=== PATIENT | male | born 1955 | race Caucasian/White ===

== ENCOUNTER 2021-09-22 22:21 | Inpatient (IN) | payer MEDICARE, SELFPAY ==
--- NOTE | ~2021-09-22 | XR_ITS ---
EXAMINATION: XR chest 1V portable EXAM DATE: 10/06/2021 10:39 INDICATION: Respiratory failure. COVID pneumonia. TECHNIQUE: Portable AP frontal chest x-ray was obtained. Comparison is made to prior examination from 10/05/2021. FINDINGS: Endotracheal tube, nasogastric tube and right IJ venous line are in position. Diffuse COVID pneumonia unchanged. There are no sizable pleural effusions. There is no pneumothora x suspected. Cardiomediastinal silhouette is normal. Mild thoracic spondylosis. There is aortic ar teriosclerosis. There is no significant interval change compared to prior exam. IMPRESSION: 1. Line and tube(s) in position. 2. Stable diffuse COVID pneumonia. Reviewed, dictated and finalized at location A. UIT BREAKER ASSEMBLER
--- NOTE | ~2021-09-22 | XR_ITS ---
EXAMINATION: XR chest 1V portable DATE: 10/04/2021 07:56 INDICATION: Respiratory failure. COVID-19 pneumonia. TECHNIQUE: A single frontal view of the chest was obtained. COMPARISON: Chest single view 10/03/2021 FINDINGS: The patient is rotated to his left. There are airspace opacities and interstitial opacities in all lung zones bilaterally. No pleural effusion or pneumothorax. The heart size is normal. The en dotracheal tube tip is 5.7 cm above the viola. The nasogastric tube tip is beyond the inferior sophie n of the radiograph, but at least to the stomach. A right internal jugular central venous catheter is seen with tip at the superior cavoatrial junction. IMPRESSION: 1. Stable diffuse lung disease, consistent with COVID-19 pneumonia versus acute respiratory distress syndrome (ARDS). Reviewed, dictated and finalized at location A. CE DEPARTMENT SECRETARY
--- NOTE | ~2021-09-22 | XR_ITS ---
EXAMINATION: XR chest 1V portable DATE: 09/26/2021 05:28 INDICATION: Acute respiratory failure. COVID-19 pneumonia. TECHNIQUE: A single frontal view of the chest was obtained. COMPARISON: Chest single view 09/25/2021, chest CT 09/22/2021 FINDINGS: There are airspace opacities in all lung zones bilaterally, worst in the mid and lower lung zones. No pleural effusion or pneumothorax. The heart size is normal. The endotracheal tube tip is 4 .6 cm above the viola. The nasogastric tube tip is in the stomach. A right internal jugular central venous catheter is seen with tip at the superior cavoatrial junction. IMPRESSION: 1. Diffuse lung disease with improvement in right upper lobe and worsening at left lung base, consist ent with COVID-19 pneumonia. Reviewed, dictated and finalized at location A. L SERVICES MANAGER IMPRESSION: 1. Diffuse lung disease with improvement in right upper lobe and worsening at l eft lung base, consistent with COVID-19 pneumonia.
--- NOTE | ~2021-09-22 | XR_ITS ---
EXAMINATION: XR chest 1V portable DATE: 09/22/2021 22:46 INDICATION: COVID-19 pneumonia. Shortness of breath and cough. TECHNIQUE: A single frontal view of the chest was obtained. COMPARISON: Chest CT 09/22/2021 FINDINGS: There are hazy airspace opacities in all lung zones bilaterally with a basilar predominance . No pleural effusion or pneumothorax. The heart size is normal. IMPRESSION: 1. Diffuse lung disease, consistent with COVID-19 pneumonia. Reviewed, dictated and finalized at location A. CING MANAGER
--- NOTE | ~2021-09-22 | XR_ITS ---
EXAMINATION: XR chest 1V portable DATE: 10/07/2021 13:45 INDICATION: Oxygen desaturation. Decompensation. TECHNIQUE: A single frontal view of the chest was obtained. COMPARISON: Chest single view 10/07/2021 FINDINGS: There are airspace and interstitial opacities of the lungs bilaterally. No pleural effusion or pneumothorax. The heart size is normal. The endotracheal tube tip is 5.1 cm above the viola. The nasogastric tube tip is beyond the inferior margin of the radiograph, but at least to the stomach. A right internal jugular central venous catheter is seen with tip at the superior cavoatrial junction. IMPRESSION: 1. Diffuse lung disease with worsening on the right, consistent with COVID-19 pneumonia versus acute respiratory distress syndrome (ARDS). Reviewed, dictated and finalized at location A. RVISOR TRAVEL TRAILER IMPRESSION: 1. Diffuse lung disease with worsening on the right, consistent with COVID-19 p neumonia versus acute respiratory distress syndrome (ARDS).
--- NOTE | ~2021-09-22 | XR_ITS ---
XR chest ET placement 09/25/2021 14:22 Indication: Check endotracheal tube placement Procedure: AP portable chest Comparison: Comparison to multiple prior studies sequentially, with oldest reviewed study dated 09/04. Findings: Endotracheal tube tip 5.8 cm above the viola. NG tube in the stomach. Right IJ central alli e tip in the caudal aspect of the SVC. There is bilateral airspace disease which has progressed sligh tly. No significant effusion or pneumothorax. Heart size normal. Impression: 1: Interval progression of bilateral airspace disease which may represent pneumonia or edema. Reviewed, dictated and finalized at location A. GER SPA Impression: 1: Interval progression of bilateral airspace disease which may represent pneum onia or edema.
--- NOTE | ~2021-09-22 | XR_ITS ---
XR chest 1V portable DATE: 09/27/2021 06:33 INDICATION: Covid pneumonia. Intubation. TECHNIQUE: Portable AP chest on 09/27/2021 at 0519 hours COMPARISON: 09/26/2021 portable AP chest FINDINGS: There are patchy bilateral infiltrates involving primarily the mid and lower lung zones, gr eater on the left, particularly the the left lower lobe, with left lower lobe air bronchograms. Right internal jugular central venous catheter tip overlies the superior cavoatrial junction. ET tube 5.2 cm above viola. NG tube tip overlies distal stomach. Heart size appears within normal limits considering magnification associated with AP projection. Aort ic arch calcification. Minimal if any pleural effusion. IMPRESSION: Persistent bilateral pulmonary infiltrates, left greater than right, especially left lowe r lobe Reviewed, dictated and finalized at location A. MACHINE TENDER STARCH SPRAYING IMPRESSION: Persistent bilateral pulmonary infiltrates, left greater than right , especially left lower lobe
--- NOTE | ~2021-09-22 | XR_ITS ---
XR chest 1V portable DATE: 10/07/2021 06:21 INDICATION: History of failure. Covid pneumonia. TECHNIQUE: Portable upright AP chest on 10/24/2021 at 0459 hours COMPARISON: 10/06/2021 portable AP chest at 1025 hours FINDINGS: ET tube tip is approximately 5.2 cm above viola in satisfactory position. NG tube in stoma ch. Right internal jugular central venous catheter tip is situated in the lower aspect of the inferio r vena cava. Extensive diffuse patchy bilateral pulmonary infiltrates essentially unchanged since 10/06/2021, with m ost prominent involvement in the left lower lobe where there is opacification due to atelectasis and/ or consolidation. IMPRESSION: Persistent extensive patchy bilateral pulmonary infiltrates, relatively unchanged since Reviewed, dictated and finalized at location A. ERY KILN BUILDER IMPRESSION: Persistent extensive patchy bilateral pulmonary infiltrates, relati vely unchanged since 10/06/2021
--- NOTE | ~2021-09-22 | XR_ITS ---
EXAMINATION: XR chest 1V portable DATE: 10/05/2021 07:52 INDICATION: Respiratory failure. COVID-19 pneumonia. TECHNIQUE: A single frontal view of the chest was obtained on 2 radiographs. COMPARISON: Chest single view 10/04/2021 FINDINGS: The patient is rotated to his left. There are airspace and interstitial opacities in all james ng zones bilaterally with relative sparing of left lung apex. No pleural effusion or pneumothorax. Th e heart size is normal. The endotracheal tube tip is 5.3 cm above the viola. The nasogastric tube ti p is in the stomach. A right internal jugular central venous catheter is seen with tip at the superio r cavoatrial junction. IMPRESSION: 1. Worsened diffuse lung disease, consistent with COVID-19 pneumonia versus acute respiratory distres s syndrome (ARDS). Reviewed, dictated and finalized at location A. L SPRAYING MACHINE OPERATOR IMPRESSION: 1. Worsened diffuse lung disease, consistent with COVID-19 pneumonia versus acu te respiratory distress syndrome (ARDS).
--- NOTE | ~2021-09-22 | XR_ITS ---
EXAMINATION: XR chest 1V portable DATE: 09/30/2021 09:00 INDICATION: Acute respiratory failure. COVID pneumonia. TECHNIQUE: frontal view of the chest was obtained. COMPARISON: Chest radiograph dated 09/29/[address] studies dated 09/22/2021 and 09/29/2021. FINDINGS: Endotracheal tube tip 5.5 cm above the viola. Nasogastric tube extends below the left hemidiaphragm with distal tip collimated off the study. Right internal jugular central venous catheter with distal tip near the superior cavoatrial junction. Airspace opacities throughout the left lung relatively sparing the apex and to a lesser degree along the medial aspect of the right mid to lower lung zones. There is been some interval improvement parti cularly in the right lung as well as in the previously consolidated retrocardiac left lower lobe. No pleural effusion or pneumothorax. The cardiomediastinal silhouette is normal. IMPRESSION: 1. Bilateral lung disease with interval improvement particularly in the right lung likely due to infe ction. The appearance and pattern with progression of the lung disease on earlier CT studies suggests possibility of combined COVID and superimposed bacterial pneumonia. Reviewed, dictated and finalized at location . REVIEW SPECIALIST IMPRESSION: 1. Bilateral lung disease with interval improvement particularly in the right l little likely due to infection. The appearance and pattern with progression of the lung disease on earlier CT studies suggests possibility of combined COVID and superimposed bacterial pneumonia.
--- NOTE | ~2021-09-22 | CT_ITS ---
EXAMINATION: CT chest abdomen pelvis wo con DATE: 10/04/2021 11:15 INDICATION: Respiratory failure. TECHNIQUE: Computed tomography (CT) of the chest, abdomen, and pelvis was performed without intraveno us contrast. Automated exposure control and iterative reconstruction technique were employed. The dos e-length product was 1207.04 mGy-cm. COMPARISON: Chest CT 09/29/2021 FINDINGS: CHEST CT: There are extensive airspace opacities with air bronchograms in all lobes in the dependent portions o f the lungs. There are areas of new cavitation in these areas in the lower lobes and right upper lobe . There are groundglass opacities and crazy paving in the less dependent portions of the lungs. No pl eural effusion. The heart size is normal. There are coronary artery calcifications. No pericardial ef fusion. The nasogastric tube tip is in the distal stomach. A right internal jugular central venous ca theter is seen with tip at the superior cavoatrial junction. The endotracheal tube tip is in expected position above the viola. There is mild thoracic spondylosis. ABDOMEN/PELVIS CT: The liver and spleen are normal. The gallbladder is normal in size and contains contrast. The adrenal glands are normal. There are 3 stones in right kidney measuring up to 4 mm. There are greater than 1 0 stones in left kidney measuring up to 4 mm. No hydronephrosis. There is a Feldman catheter in the richard dder. The prostate is mildly enlarged. There is diverticulosis of the colon without evidence of diver ticulitis. There are no dilated loops of bowel. The appendix is not visualized. There are no patholog ically enlarged lymph nodes. There is trace pelvic ascites. There is mild lumbar spondylosis. IMPRESSION: 1. Worsened diffuse lung disease including areas of new cavitation in the lower lobes and right upper lobe, likely a combination of necrotizing bacterial pneumonia and COVID-19 pneumonia. Reviewed, dictated and finalized at location A. ER SPRAYER IMPRESSION: 1. Worsened diffuse lung disease including areas of new cavitation in the lower lobes and right upper lobe, likely a combination of necrotizing bacterial pneu monia and COVID-19 pneumonia.
--- NOTE | ~2021-09-22 | XR_ITS ---
EXAMINATION: XR chest 1V portable EXAM DATE: 10/02/2021 08:40 INDICATION: resp failure, covid pna TECHNIQUE: Portable AP frontal chest x-ray was obtained. Comparison is made to prior examination from 10/01/2021. FINDINGS: Endotracheal tube tip is 5 centimeters above the viola. There is a nasogastric tube seen with tip collimated off the study, but below the left hemidiaphragm. There is right IJ venous line. Diffuse airspace disease consistent with COVID pneumonia. There are no sizable pleural effusions. There is no pneumothorax suspected. Cardiomediastinal silhouette is normal. The bones and soft tis sues are unremarkable. There is no significant interval change compared to prior exam. IMPRESSION: 1. Line and tube(s) in position. 2. Diffuse COVID pneumonia. TAL PRE PRESS OPERATOR Reviewed, dictated and finalized at location A.
--- NOTE | ~2021-09-22 | XR_ITS ---
XR chest 1V portable 09/24/2021 12:55 Indication: Covid pneumonia Procedure: AP portable chest Comparison: 09/22/2021 Findings: There is patchy bilateral airspace opacities without significant change allowing for differ ences of technique. No pleural effusion or pneumothorax. No acute osseous abnormality. Impression: 1: Patchy bilateral airspace disease, compatible with pneumonia. Reviewed, dictated and finalized at location A. IL ANALYST Impression: 1: Patchy bilateral airspace disease, compatible with pneumonia.
--- NOTE | ~2021-09-22 | XR_ITS ---
XR abdomen NG/feed tube insert INDICATION: Evaluate NG tube position. TECHNIQUE: Limited KUB perform for evaluating NG tube . COMPARISON: No prior studies for comparison. FINDINGS: NG tube tip in the stomach at the level of the gastric antrum/pylorus. Visualized bowel ga s pattern is unremarkable.Bilateral airspace disease, consistent with pneumonia. IMPRESSION: 1: NG tube tip in the stomach. Reviewed, dictated and finalized at location A. STIGATOR VICE
--- NOTE | ~2021-09-22 | XR_ITS ---
EXAMINATION: XR chest 1V portable EXAM DATE: 10/01/2021 08:50 INDICATION: COVID pneumonia. Respiratory failure. TECHNIQUE: Portable AP frontal chest x-ray was obtained. Comparison is made to prior examination from 09/30/2021. FINDINGS: Endotracheal tube tip is 5 centimeters above the viola. There is a nasogastric tube seen with tip collimated off the study, but below the left hemidiaphragm. There is right IJ venous line. Again there is extensive left-sided, moderate amount of right basilar acute airspace disease consiste nt with COVID pneumonia. There are no sizable pleural effusions. There is no pneumothorax suspecte d. Cardiomediastinal silhouette is normal. The bones and soft tissues are unremarkable. There is no significant interval change compared to prior exam. IMPRESSION: 1. Line and tube(s) in position. 2. Stable airspace disease and other findings as above. Reviewed, dictated and finalized at location A. LOGY RESEARCH RN
--- NOTE | ~2021-09-22 | XR_ITS ---
EXAMINATION: XR chest ET placement DATE: 09/25/2021 06:32 INDICATION: Intubation. TECHNIQUE: A single frontal view of the chest was obtained. COMPARISON: Chest single view 09/24/2021, chest CT 09/22/2021 FINDINGS: There are airspace opacities in all lung zones bilaterally with a perihilar and lower lung predominance. No pleural effusion or pneumothorax. The heart size is normal. The endotracheal tube ti p is 5.9 cm above the viola. IMPRESSION: 1. Stable diffuse lung disease, consistent with COVID-19 pneumonia. Reviewed, dictated and finalized at location A. H MECHANIC
--- NOTE | ~2021-09-22 | XR_ITS ---
EXAMINATION: XR abdomen obstructive series EXAM DATE: 10/06/2021 11:40 INDICATION: Rule out ileus, small-bowel obstruction. TECHNIQUE: Frontal upright projection of the upper abdomen, frontal projection of the lower abdomen f or interpretation. Comparison is made to prior examination from 09/25/2021. FINDINGS: Feeding tube is in position. There is moderate amount of colonic stool and gas. No small bowel dilation, nonobstructive bowel gas pattern. There are no suspicious calcifications identifie d. There is no organomegaly suspected. The bones are unremarkable. Bibasilar airspace disease. IMPRESSION: 1. Moderate colonic stool and gas. 2. Bibasilar airspace disease. Reviewed, dictated and finalized at location A. UNTS PAYABLE ASSOCIATE
--- NOTE | ~2021-09-22 | XR_ITS ---
EXAMINATION: XR chest port-a-cath/central DATE: 09/25/2021 12:01 INDICATION: Central line placement. TECHNIQUE: A single frontal view of the chest was obtained. COMPARISON: Chest single view at 5:31 AM FINDINGS: There are airspace opacities in all lung zones bilaterally with a perihilar and lower lung predominance. No pleural effusion or pneumothorax. The heart size is normal. The endotracheal tube ti p is 6.1 cm above the viola. The nasogastric tube tip is in the distal stomach. A right internal jug ular central venous catheter is seen with tip at the superior cavoatrial junction. IMPRESSION: 1. Central line tip at superior cavoatrial junction. 2. Stable diffuse lung disease, consistent with COVID-19 pneumonia. Reviewed, dictated and finalized at location A. ESCENT PSYCHIATRIST
--- NOTE | ~2021-09-22 | XR_ITS ---
EXAMINATION: XR chest 1V portable EXAM DATE: 10/07/2021 23:13 INDICATION: covid sats 84 on peep 14 fio2 100%. TECHNIQUE: Portable AP frontal chest x-ray was obtained. Comparison is made to prior examination from 10/07, 10/06. FINDINGS: Endotracheal tube, nasogastric tube are in position. There is a right IJ venous line in po sition. Extensive bilateral acute pneumonia or edema, with continued interval progression. Small pleural effu sions not excludable. There is no pneumothorax suspected. Cardiac silhouette obscured by adjacent confluent consolidation. The bones and soft tissues are unremarkable. IMPRESSION: 1. Line and tube(s) in position. 2. Extensive bilateral airspace disease with continued interval progression. Reviewed, dictated and finalized at location A. FLIPPER
--- NOTE | ~2021-09-22 | XR_ITS ---
XR chest 1V portable DATE: 09/29/2021 06:24 INDICATION: Acute respiratory failure. Covid pneumonia. TECHNIQUE: Portable AP chest on 09/29/2021 0506 hours COMPARISON: 09/23/2021 portable AP chest at 0519 hours FINDINGS: ET tube in satisfactory position 4 cm above viola. NG tube in stomach. Right internal jugu lar central venous catheter tip overlies the right atrium. There are increased bilateral infiltrates involving particularly the mid and lower lung zones since 1 11/24/2020, with air bronchograms in the left lower lobe. Aortic calcification. IMPRESSION: Increased bilateral pulmonary infiltrates since 09/23/2020 Reviewed, dictated and finalized at location A. OR OYSTER FARMWORKER
--- NOTE | ~2021-09-22 | CT_ITS ---
EXAMINATION: CTA chest PE protocol DATE: 09/29/2021 10:34 INDICATION: Acute respiratory failure. Covid pneumonia. Possible pulmonary embolism. TECHNIQUE: Computed tomography angiography (CTA) of the chest was performed with 100 mL Omnipaque-350 intravenous contrast timed to evaluate the pulmonary arteries. Coronal maximum intensity projection 3D-reconstructions were created by the technologist. Automated exposure control and iterative reconst ruction technique were employed. Exam dose: 745.42 mGy-cm total exam DLP. COMPARISON: 09/23/2021 portable AP chest FINDINGS: There is diagnostic contrast enhancement of the pulmonary arteries and no evidence of pulmo nary embolism. No thoracic aortic aneurysm or dissection. Normal heart size. Coronary artery calcification. No hilar or mediastinal mass lesion or lymphadenopathy. There is very prominent bilateral lower lobe patchy consolidation with air bronchograms. There are groundglass patchy infiltrates of the upper lobes and middle lobe and patchy consolidation in the posterior segment left upper lobe and lingula. Endotracheal tube is present. NG tube in stomach. Right internal jugular central venous catheter. Prominent degenerative disc disease in lower cervical spine. Diffuse idiopathic skeletal hyperostosis of the thoracic spine. No suspicious osteolytic or osteoblastic lesions. IMPRESSION: No evidence of pulmonary embolism Extensive patchy consolidation of the lower lobes and posterior left upper lobe and lingula; patchy g roundglass infiltrates of the upper lobes and middle lobe Reviewed, dictated and finalized at Location A. Reviewed, dictated and finalized at location A. CAL CODING SPECIALIST IMPRESSION: No evidence of pulmonary embolism Extensive patchy consolidation of the lower lobes and posterior left upper lobe and lingula; patchy groundglass infiltrates of the upper lobes and middle lobe
--- NOTE | ~2021-09-22 | XR_ITS ---
EXAMINATION: XR chest 1V portable DATE: 10/08/2021 02:38 INDICATION: COVID-19 pneumonia. TECHNIQUE: A single frontal view of the chest was obtained. COMPARISON: Chest single view 10/07/2021, chest CT 10/04/2021 FINDINGS: There are airspace and interstitial opacities throughout the lungs bilaterally. No pleural effusion or pneumothorax. The heart size is normal. The endotracheal tube tip is 6.5 cm above the car porfirio. A right internal jugular central venous catheter is seen with tip at the superior cavoatrial soledad ction. The nasogastric tube tip is in the distal stomach. IMPRESSION: 1. Diffuse lung disease with worsening on the right, consistent with pneumonia. Reviewed, dictated and finalized at location A. EN CONSULTANT
--- NOTE | ~2021-09-22 | XR_ITS ---
XR chest 1V portable DATE: 09/29/2021 10:34 INDICATION: Acute respiratory failure. Covid pneumonia. TECHNIQUE: Portable AP chest on 09/23/2021 at 0933 hours COMPARISON: 09/29/2021 portable AP chest at 0506 hours FINDINGS: There are prominent bilateral central and lower lung zone infiltrates left lower lobe air b ronchograms. Differential diagnosis includes pulmonary edema and/or pneumonia. Heart size appears within normal range. There is aortic arch calcification. ET tube is approximately 5.3 cm above viola. NG tube in stomach. Right internal jugular central veno us catheter tip overlies superior cavoatrial junction. IMPRESSION: Persistent prominent bilateral pulmonary infiltrates; pulmonary edema and/or pneumonia Reviewed, dictated and finalized at location A. HT KITCHEN MANAGER IMPRESSION: Persistent prominent bilateral pulmonary infiltrates; pulmonary facundo ma and/or pneumonia
--- NOTE | ~2021-09-22 | XR_ITS ---
EXAMINATION: XR chest 1V portable EXAM DATE: 10/03/2021 07:59 INDICATION: Respiratory failure. COVID pneumonia. TECHNIQUE: Portable AP frontal chest x-ray was obtained. Comparison is made to prior examination from 10/02/2021. FINDINGS: Endotracheal tube tip is 5 centimeters above the viola. There is a nasogastric tube seen with tip collimated off the study, but below the left hemidiaphragm. There is right IJ venous line. Diffuse airspace disease consistent with COVID pneumonia. There are no sizable pleural effusions. There is no pneumothorax suspected. Cardiomediastinal silhouette is normal. The bones and soft tis sues are unremarkable. There is no significant interval change compared to prior exam. IMPRESSION: 1. Line and tube(s) in position. Diffuse COVID pneumonia. Reviewed, dictated and finalized at location A. D PRINTER
--- NOTE | ~2021-09-22 | CT_ITS ---
EXAMINATION: CTA chest PE protocol DATE: 09/22/2021 23:47 INDICATION: Shortness of breath. COVID-19 pneumonia. TECHNIQUE: Computed tomography angiography (CTA) of the chest was performed with 100 mL Omnipaque-350 intravenous contrast timed to evaluate the pulmonary arteries. Coronal maximum intensity projection 3D-reconstructions were created by the technologist. Automated exposure control and iterative reconst ruction technique were employed. The dose-length product was 279.33 mGy-cm. COMPARISON: None. FINDINGS: There are scattered groundglass opacities throughout the lungs bilaterally with a posterior predominance. There are airspace opacities in the lower lobes posteriorly. No pleural effusion. The heart size is normal. There are coronary artery calcifications. No pericardial effusion. There is no pulmonary embolus. There is a small sliding hiatal hernia. There is mild thoracic spondylosis and sev ere cervical spondylosis. There are bridging endplate osteophytes at multiple levels in the spine, co nsistent with diffuse idiopathic skeletal hyperostosis (DISH). IMPRESSION: 1. No pulmonary embolus. 2. Diffuse lung disease with a posterior predominance, consistent with COVID-19 pneumonia. Reviewed, dictated and finalized at location [facility]
[2021-09-22 22:16] VITALS: BP 109/74; PULSE 144; RESP 34; TEMP 37.2; O2SAT 82
--- NOTE | 2021-09-22 22:26 | ECG_ITS ---
Measurements Intervals Sharon Rate: 144 P: MN: 0 QRS: -21 QRSD: 86 T: 28 QT: 357 QTc: 554 Interpretive Statements SINUS OR ECTOPIC ATRIAL TACHYCARDIA BORDERLINE R WAVE PROGRESSION, ANTERIOR LEADS CONSIDER INFERIOR INFARCT, AGE INDETERMINATE BASELINE ARTIFACT- I, II, III, AVR, AVL, AVF, V1-V6 ABNORMAL ECG Electronically Signed On 09-23-2021 6:17:44 ANAESTHETIC TECHNICIAN by Tyler Tyler D.O.
[2021-09-22 22:28] VITALS: O2SAT 92
[2021-09-22 22:29] VITALS: PULSE 152
[2021-09-22 22:40] LABS: Alveolar/Arterial O2 Gradient 618.4 mmHg; Base Excess ABG -0.8 mEq/l (+/-2.0); Carboxyhemoglobin 0.8 % THb (0-2.0); Fractional Inspired Oxygen 100 %; HCO3 ABG 21.5 mEq/l (22.0-26.0); Methemoglobin ABG 0.2 %THb (0-1.5); Oxygen Content ABG 20.5 %vol (16.0-22.0); Oxygen Saturation ABG 94.2 % (95.0-100.0); Oxyhemoglobin 92.3 % THb (90.0-100.0); PO2 ABG 64.6 mmHg (80.0-100.0); PO2 FiO2 Ratio Arterial Blood 0.65 %; Reduced Hemoglobin 6.7 %THb (0-5.0); Total Hemoglobin 15.8 g/dL (12.0-18.0); pH ABG 7.474 (7.350-7.450)
[2021-09-22 22:41] LABS: Device NON-REBREATHER MASK; Modified Allen's Test Pass; Site Drawn LEFT RADIAL
[2021-09-22] MEDS: SODIUM CHLORIDE 0.9% IV 1,000 ML 999 ML IV CONT (22:41)
[2021-09-22] MEDS: DEXAMETHASONE SOD PHOS INJ 4 MG/ML VIAL 6 MG IV PUSH (22:42)
--- NOTE | 2021-09-22 22:59 | PCRCNOTE ---
therapist replaced 15L NRB mask with 10L HFNC. pt satting 94 and resting comfortably.
[2021-09-22 23:17] LABS: Albumin Level 4.6 g/dL (3.5-5.1); Alkaline Phosphatase 68 U/L (38-126); Anion Gap 17 mmol/L (8-16); Aspartate Amino Transferase 80 U/L (17-59); Bilirubin,Total 1.8 mg/dL (0.2-1.3); Blood Urea Nitrogen 32 mg/dL (9-20); CRP 7.2 mg/dL (<1.0); Calcium 9.2 mg/dL (8.4-10.2); Carbon Dioxide 23 mmol/L (22-30); Chloride 96 mmol/L (98-107); Estimated CRCL calculation 46 ml/min; Estimated Glomerular Filt Rate 55; Glucose 146 mg/dL (65-110); Lactic Acid Reflex 5.1 mmol/L (0.7-2.1); Potassium 3.8 mmol/L (3.4-5.0); Sodium 136 mmol/L (137-145)
[2021-09-22 23:39] LABS: Alanine Aminotransferase 50 U/L (4-50)
[2021-09-23] VITALS (15 sets, daily range): BP systolic 110–118; BP diastolic 47–64; PULSE 57–70; RESP 18–36; TEMP 36.2–36.7; O2SAT 90–94; BMI 25.4
--- NOTE | 2021-09-23 00:52 | ED.GENADULT ---
HPI - General Adult General Chief complaint: Shortness of Breath/Dyspnea Stated complaint: dyspnea, COVID+ yesterday Time Seen by Provider: 09/22/21 22:25 History of Present Illness HPI narrative: Patient is a 66-year-old gentleman who presents the emergency department with chief complaint of shortness of breath. Patient reports that he has history of SVT and also has been feeling unwell for the last week. The patient reports he was tested for COVID-19 and found out the last 24 hours that he was positive for Covid. The patient states he was getting progressively more short of breath called EMS and was found to be saturating in the 80s on room air. The patient reports that he is unvaccinated for COVID-19. The patient reports the symptoms are not improved by anything nor are they worsened by anything. Related Data Home Medications Medication Instructions Recorded Confirmed metoprolol succinate PO 09/22/21 Allergies Allergy/AdvReac Type Severity Reaction Status Date / Time No Known Allergies Allergy Mild Verified 09/22/21 22:52 Review of Systems Review of Systems: A 10 system review of systems was completed on the patient and is negative except for what is stated in the HPI. Nursing and ancillary documentation was reviewed. [facility] Past Medical History Medical History (Updated 09/23/21 @ 02:02 by Kain Francois MD) Anxiety BPH (benign prostatic hyperplasia) GERD (gastroesophageal reflux disease) Hypertension Normal colonoscopy (~2014) Supraventricular tachycardia Surgical History Surgical History History of esophagogastroduodenoscopy (EGD) (~2014) Family History Family History Unknown Pancreatic cancer Social History Social History Smoking status: Never smoker Second hand tobacco smoke exposure: No Alcohol intake: never Substance use: never Substance use type: does not use Gender identity (if verbalized by the patient): Male Exam Narrative: GENERAL: Well-appearing, well-nourished, ill appearing. HEAD: Normocephalic, atraumatic. EYES: PERRLA and EOMI. ENT: Nares clear, no rhinorrhea or epistaxis. Mucous membranes moist. NECK: Supple. CHEST: Clear to auscultation. No respiratory distress. HEART: Regular rate and rhythm. No murmur heard. Normal peripheral pulses. ABDOMEN: Soft, nontender, nondistended, normal active bowel sounds. EXTREMITIES: Normal range of motion. No edema. SKIN: Warm, dry, no rash. NEURO: No focal deficits. Alert and oriented x3. PSYCH: Normal mood and affect. Course Vital Signs Vital signs: Vital Signs Temperature 37.2 C 09/22/21 22:16 Pulse Rate 144 H 09/22/21 22:16 Respiratory Rate 34 H 09/22/21 22:16 Blood Pressure 109/74 09/22/21 22:16 Pulse Oximetry 82 L 09/22/21 22:16 Temperature 37.2 C 09/22/21 22:16 Pulse Rate 69 09/23/21 04:57 Respiratory Rate 18 09/23/21 04:57 Blood Pressure 116/57 L 09/23/21 04:57 Pulse Oximetry 90 09/23/21 04:57 Medical Decision Making Vital Signs Vital Signs: Vital Signs Temperature 37.2 C 09/22/21 22:16 Pulse Rate 144 H 09/22/21 22:16 Respiratory Rate 34 H 09/22/21 22:16 Blood Pressure 109/74 09/22/21 22:16 Pulse Oximetry 82 L 09/22/21 22:16 Temperature 37.2 C 09/22/21 22:16 Pulse Rate 69 09/23/21 04:57 Respiratory Rate 18 09/23/21 04:57 Blood Pressure 116/57 L 09/23/21 04:57 Pulse Oximetry 90 09/23/21 04:57 Lab Data Result diagrams: 09/23/21 02:17 Labs: Lab Results 09/22/21 09/22/21 09/22/21 Range/Units 22:32 22:38 22:38 D-Dimer (<0.48) ug/mL Methemoglobin 0.2 (0-1.5) %THb Sodium 136 L (137-145) mmol/L Potassium 3.8 (3.4-5.0) mmol/L Chloride 96 L (98-107) mmol/L Carbon Dioxide 23 (22-30) mmol/L
[2021-09-23 01:46] LABS: Reflex Lactic Acid Yes or No Add Lactic
[2021-09-23] MEDS: SODIUM CHLORIDE 0.9% IV 1,000 ML 125 ML IV CONT (02:25)
[2021-09-23 02:35] LABS: Alanine Aminotransferase 36 U/L (4-50); Estimated CRCL calculation 64 ml/min; Estimated Glomerular Filt Rate > 60
[2021-09-23 02:37] LABS: INR 1.1; Prothrombin Time 13.8 Seconds (11.1-14.7)
[2021-09-23] MEDS: REMDESIVIR 200 MG/NS 250 ML 200 MG/250 ML BAG 250 MG IVPB (02:58)
--- NOTE | 2021-09-23 04:37 | PM.IMHP ---
H&P: HPI History of Present Illness Date/Time: 09/23/21 04:37 Chief Complaint: shortness of breath Narrative: Patient is a 66-year-old gentleman who presents the emergency department with chief complaint of shortness of breath. Patient reports that he has history of SVT and also has been feeling unwell for the last week with cough, nausea, body aches. The patient reports he was tested for COVID-19 and found out that he was positive for Covid. The patient states he was getting progressively more short of breath and hence called EMS and was found to be saturating in the 80s on room air. The patient reports that he is unvaccinated for COVID-19. The patient reports the symptoms are not improved by anything nor are they worsened by anything. he has been placed on high taj nasal cannula on arrival to the ED. he is admitted for further treatment Review of Systems Review of Systems: - CONSTITUTIONAL: Denies weight loss, fever and chills. - HEENT: Denies changes in vision and hearing - RESPIRATORY: reports SOB and cough. - CV: Denies palpitations and CP. - GI: Denies abdominal pain, nausea, vomiting and diarrhea. - : Denies dysuria and urinary frequency. - MSK: reports myalgia and denies joint pain. - SKIN: Denies rash and pruritus. - NEUROLOGICAL: Denies headache and syncope. - PSYCHIATRIC: Denies recent changes in mood. Denies anxiety and depression. All systems reviewed & are unremarkable except as noted in HPI and below Constitutional: Constitutional: Reports fatigue and Reports weakness Neurologic: Reports weakness Endocrine: Endocrine: Reports fatigue PMFSH Past Medical History Medical History (Updated 09/23/21 @ 02:02 by Kain Francois MD) Anxiety BPH (benign prostatic hyperplasia) GERD (gastroesophageal reflux disease) Hypertension Normal colonoscopy (~2014) Supraventricular tachycardia Surgical History Surgical History History of esophagogastroduodenoscopy (EGD) (~2014) Family History Family History Unknown Pancreatic cancer Social History Social History Smoking status: Never smoker Second hand tobacco smoke exposure: No Alcohol intake: never Substance use: never Substance use type: does not use Gender identity (if verbalized by the patient): Male Meds Home Medications and Allergies Home Medications Medication Instructions Recorded Confirmed Type metoprolol succinate PO 09/22/21 History Allergies Allergy/AdvReac Type Severity Reaction Status Date / Time No Known Allergies Allergy Mild Verified 09/22/21 22:52 Vital Signs Vital Signs - 24 hr 09/22/21 22:16 09/22/21 22:28 09/22/21 22:29 Temperature 98.9 F Pulse Rate 144 H 152 H Respiratory Rate 34 H Blood Pressure 109/74 Pulse Oximetry 82 L 92 09/23/21 01:15 09/23/21 01:16 Temperature Pulse Rate 70 Respiratory Rate 32 H Blood Pressure 110/58 L Pulse Oximetry 94 94 Exam Narrative: GENERAL: Well-appearing, well-nourished, and in no acute distress. HEAD: Normocephalic, atraumatic. EYES: PERRLA and EOMI. ENT: Nares clear, no rhinorrhea or epistaxis. Mucous membranes moist. NECK: Supple. CHEST: coarse breath sounds, No respiratory distress. HEART: Regular rate and rhythm. No murmur heard. Normal peripheral pulses. ABDOMEN: Soft, nontender, nondistended, normal active bowel sounds. EXTREMITIES: Normal range of motion. No edema. SKIN: Warm, dry, no rash. NEURO: No focal deficits. Alert and oriented x3. PSYCH: Normal mood and affect. H&P: Results Labs Labs: BMP 09/22/21 09/23/21 22:38 02:17 Sodium 136 L Potassium 3.8 Chloride 96 L Carbon Dioxide 23 BUN 32 H Creatinine 1.30 0.90 Glucose 146 H Calcium 9.2 Liver Function 09/22/21 09/23/21 Range/Uni
--- NOTE | 2021-09-23 07:47 | ADMGEN ---
This patient, Tho Moreno, was admitted to IMU Room 205-02 on 09/23/21 at 0640. Patient/family oriented to hospital policies and general routines including ID bracelet, bed and alarms, visiting hours, pain management, procedures, bathroom and other care routines, personal items, smoking policy, room service/diet, and visiting hours. Information on how to activate the Rapid Response Team has been discussed. Patient/Family are encouraged to report perceived risks to care and to ask questions if they do not understand what they are told or what they should do.
--- NOTE | 2021-09-23 10:44 | PM.IMPN ---
Progress Note: A&P Assessment and Plan (1) Acute respiratory failure: Code(s): J96.00 - Acute respiratory failure, unspecified whether with hypoxia or hypercapnia Status: Acute Assessment and Plan: Acute respiratory failure secondary to COVID pneumonia. Patient was hypoxic in the field. He was started on supplemental oxygen. Here he was on non-rebreather mask currently on high-flow nasal cannula. Currently on 10 L. ABG showing 7.4 05/03/2065 on 15 L non-rebreather mask at 100%. Lactic elevated markedly but resolved quickly. Imaging as mentioned below. Continue supplemental oxygen. Continue supportive care. Encourage him to lie prone. (2) Pneumonia due to 2019-nCoV: Code(s): U07.1 - COVID-19; J12.82 - Pneumonia due to coronavirus disease 2019 Status: Acute Assessment and Plan: Patient tested positive for COVID. He is on vaccinated for COVID. He was short of breath and found to be hypoxic by EMS. Chest x-ray shows diffuse lung disease. CTA showed no pulmonary emboli but did again show diffuse lung disease with a posterior predominance consistent with COVID pneumonia. D-dimer was 1.4. Lactic acid was 5.1. CRP was 7.2. Will continue remdesivir and dexamethasone that was started out of the emergency department. Will obtain a copy of his COVID results. Will repeat COVID test before starting baricitinib. Stop IV fluids (3) Supraventricular tachycardia: Code(s): I47.1 - Supraventricular tachycardia Status: Acute Assessment and Plan: Patient presents to the emergency room with a heart rate 144 an EKG showing atrial tachycardia. Probably SVT. Patient history of SVT. He is on metoprolol. Does not appear that he received any medications in the emergency department for this but was started on IV fluids. Heart rate better controlled. Will stop fluids given that he has COVID. Resume low-dose metoprolol (4) Hypertension: Code(s): I10 - Essential (primary) hypertension Status: Acute Assessment and Plan: Patient's blood pressure was reviewed on 09/23 Blood pressure remains well controlled. Metoprolol has been held. Will resume at a low dose advanced as tolerated. (5) Anxiety: Code(s): F41.9 - Anxiety disorder, unspecified Status: Acute Assessment and Plan: Mood stable. Not on medications for anxiety. Continue to monitor. (6) BPH (benign prostatic hyperplasia): Code(s): N40.0 - Benign prostatic hyperplasia without lower urinary tract symptoms Status: Acute Assessment and Plan: Stable. Not on home medications for BPH. Monitor for urine retention. (7) GERD (gastroesophageal reflux disease): Code(s): K21.9 - Gastro-esophageal reflux disease without esophagitis Status: Acute Assessment and Plan: Stable. Add Pepcid (8) DVT prophylaxis: Code(s): Z29.9 - Encounter for prophylactic measures, unspecified Status: Acute Assessment and Plan: Add Lovenox. Subjective Date/time seen: 09/23/21 10:44 Interval history: 66yo male with hx of anxiety, SVT, HTN and BPH here for SOB from [facility]. Patient is unvaccinated. Assuming care. Chart reviewed. Patient is unvaccinated. He felt that the vaccine was causing more deficits than the virus. Denies any dysgeusia or anosmia. He was having chest pain with cough last week but that has resolved. Cough is much better today. He has minimal shortness of breath. He was having diarrhea last week as well but that has resolved. No nausea or vomiting. Exam Narrative: AF 97.3 111/47 70 20 91% HFNC 10L/min Gen - NARD lying semi recumbent in bed Chest -distant breath sounds with inspiratory bibasilar crackles. CV - RRR S1/S2. Telemetry shows no significant dysrhythmias Abd - Soft, NT/ND, Positive BS Ext - No pedal edema Psych - Nml mood and affect Skin - Warm and dry Objective Data Vital Signs Vital S
[2021-09-23] MEDS: METOPROLOL TARTRATE 12.5 MG TABLET PO ×2 (12:13→20:57)
[2021-09-23 16:20] LABS: SARS-CoV-2 RNA PCR Positive (Negative)
[2021-09-23] MEDS: CALCIUM CARBONATE (TUMS) 500 MG (200 MG ELEMENTAL) PO (18:05)
[2021-09-23] MEDS: ENOXAPARIN 40 MG/0.4 ML SYRINGE SUB-Q (18:05)
[2021-09-23 18:39] LABS: Basophils Percent Auto 0.4 % (0.2-1.2); Hematocrit 39.5 % (42.0-52.0); Immature Granulocyte Absolute 0.04 K/mm3 (0.00-0.031); Immature Granulocyte Percent A 1.6 % (0-0.5); Lymphocytes Absolute Auto 0.29 K/mm3 (0.9-3.2); Lymphocytes Percent Auto 11.8 % (18.3-44.2); Mean Corpuscular HGB Conc 35.4 g/dl (32-36); Mean Corpuscular Hemoglobin 33.4 pg (26-34); Mean Corpuscular Volume 94.3 fl (80-100); Mean Platelet Volume 10.6 fl (7.4-10.4); Monocytes Absolute Auto 0.4 K/mm3 (0.1-0.6); Monocytes Percent Auto 17.1 % (2.6-8.5); Neutrophils Absolute Auto 1.7 K/mm3 (1.3-6.7); Neutrophils Percent Auto 69.1 % (45.5-73.1); Platelet Count Result 152 k/mm3 (150-375); Red Blood Count 4.19 M/mm3 (4.6-6.20); Red Cell Distribution Width 11.9 % (11.5-14.5); White Blood Count 2.5 K/mm3 (4.5-10.0)
[2021-09-23 18:53] LABS: Aspartate Amino Transferase 62 U/L (17-59)
[2021-09-23] MEDS: FAMOTIDINE 20 MG TABLET PO (20:57)
[2021-09-23] MEDS: BARICITINIB 2 MG TABLET 4 MG PO (20:58)
[2021-09-24] VITALS (19 sets, daily range): BP systolic 107–131; BP diastolic 50–62; PULSE 59–103; RESP 24–38; TEMP 36.6–37.7; O2SAT 81–97
--- NOTE | 2021-09-24 | ECHO_ITS ---
Patient Info Name: Tho Moreno Age: 66 years : 1955 Gender: Male Ht: 67 in Wt: 162 lbs BSA: 1.87 m2 HR: 72 bpm BP: 125 / 50 mmHg Exam Date: 09/24/2021 2:44 PM Exam Location: [facility] Patient Status: Inpatient Admit Date: 09/23/2021 Staff Ordering Physician: Kain Andre MD Automotive Painter: Walter Parisi, ERIKA, RT Attending Provider: Crow Wilkins MD Exam Type: CA echo doppler color flow Study Info Indications J96.00 - Acute respiratory failure, unspecified whether with hypoxia or hypercapnia Complete two-dimensional, color flow and Doppler transthoracic echocardiogram is performed. Strain analysis performed. Summary 1. Complete two-dimensional, color flow and Doppler transthoracic echocardiogram is performed. 2. Left ventricular chamber dimension is normal. 3. Left ventricular systolic function is normal, estimated at 60-65%. 4. The left ventricular diastolic function is grade I diastolic dysfunction. 5. E/e' 8 is minimally elevated. 6. Global longitudinal strain is normal at -18.3%. 7. There is mild aortic valve sclerosis. 8. There is mild aortic valve regurgitation. Left Ventricle E/e' 8 is minimally elevated. Global longitudinal strain is normal at -18.3%. Left ventricular chamber dimension is normal. Left ventricular systolic function is normal, estimated at 60-65%. The left ventricular diastolic function is grade I diastolic dysfunction. Right Ventricle Right ventricular systolic function is normal and with normal TAPSE 1.9 cm. Right ventricular chamber dimension is normal. Left Atria Left atrial chamber dimension is normal. Right Atria Right atrial chamber dimension is normal. Aortic Valve The aortic valve is trileaflet. There is mild aortic valve sclerosis. There is no aortic valve stenosis. There is mild aortic valve regurgitation. Pulmonic Valve There is no pulmonic regurgitation. Mitral Valve There is no mitral valve stenosis. There is no mitral valve regurgitation. Tricuspid Valve There is no tricuspid valve regurgitation. Pericardium/Pleural There is no pericardial effusion. Inferior Vena Cava Normal inferior vena cava with >50% collapse upon inspiration consistent with normal right atrial pressure, 5 mmHg. Aorta The aortic root size at the sinus of Valsalva is normal. Left Ventricular Outflow Tract Name Value Normal LVOT 2D LVOT Diameter 2.2 cm LVOT Doppler LVOT Peak Gradient 3 mmHg LVOT Mean Gradient 2 mmHg LVOT VTI 18 cm LVOT VTI/AV VTI Ratio 0.7 LVOT Stroke Volume 66 ml LVOT CO 4.9 l/min LVOT CI 2.6 l/min/m2 Mitral Valve Name Value Normal MV Doppler M
[2021-09-24 07:07] LABS: Basophils Percent Auto 0.3 % (0.2-1.2); Hematocrit 40.4 % (42.0-52.0); Hemoglobin 13.7 g/dL (14.0-18.0); Immature Granulocyte Absolute 0.27 K/mm3 (0.00-0.031); Immature Granulocyte Percent A 3.9 % (0-0.5); Lymphocytes Absolute Auto 0.49 K/mm3 (0.9-3.2); Lymphocytes Percent Auto 7.1 % (18.3-44.2); Mean Corpuscular HGB Conc 33.9 g/dl (32-36); Mean Corpuscular Hemoglobin 33.1 pg (26-34); Mean Corpuscular Volume 97.6 fl (80-100); Mean Platelet Volume 10.5 fl (7.4-10.4); Monocytes Absolute Auto 1.7 K/mm3 (0.1-0.6); Monocytes Percent Auto 25.2 % (2.6-8.5); Neutrophils Absolute Auto 4.4 K/mm3 (1.3-6.7); Neutrophils Percent Auto 63.5 % (45.5-73.1); Platelet Count Result 155 k/mm3 (150-375); Red Blood Count 4.14 M/mm3 (4.6-6.20); White Blood Count 6.9 K/mm3 (4.5-10.0)
[2021-09-24 07:20] LABS: Alanine Aminotransferase 43 U/L (4-50); Albumin Level 3.6 g/dL (3.5-5.1); Alkaline Phosphatase 52 U/L (38-126); Anion Gap 7 mmol/L (8-16); Aspartate Amino Transferase 56 U/L (17-59); Bilirubin,Total 0.9 mg/dL (0.2-1.3); Blood Urea Nitrogen 23 mg/dL (9-20); CRP 5.3 mg/dL (<1.0); Calcium 8.3 mg/dL (8.4-10.2); Carbon Dioxide 25 mmol/L (22-30); Chloride 101 mmol/L (98-107); Estimated CRCL calculation 64 ml/min; Estimated Glomerular Filt Rate > 60; Glucose 126 mg/dL (65-110); Lactate Dehydrogenase 1096 U/L (313-618); Sodium 133 mmol/L (137-145)
[2021-09-24 07:26] LABS: INR 1.1
[2021-09-24] MEDS: REMDESIVIR 100 MG/NS 250 ML 100 MG/250 ML BAG 250 MG IVPB (09:51)
[2021-09-24] MEDS: ENOXAPARIN 40 MG/0.4 ML SYRINGE SUB-Q (09:51)
--- NOTE | 2021-09-24 11:18 | PM.IMPN ---
Progress Note: A&P Assessment and Plan (1) Acute respiratory failure: Code(s): J96.00 - Acute respiratory failure, unspecified whether with hypoxia or hypercapnia Status: Acute Assessment and Plan: Acute respiratory failure secondary to COVID pneumonia. Patient was hypoxic in the field. He was started on supplemental oxygen. Lactic markedly elevated but resolved quickly. Imaging as mentioned below. On HFNC and NRB but SpO2 in the 80's%. Change to BiPAP today. Check ABG once on BiPAP. Spoke with community health outreach worker. Discussed with patietn about BiPAP and that he may need intubation. Continue supportive care. Encouraged him to lie prone. Spent 35 minutes on critical care time Discussed with dtr by phone - all questions answered. (2) Pneumonia due to 2019-nCoV: Code(s): U07.1 - COVID-19; J12.82 - Pneumonia due to coronavirus disease 2019 Status: Acute Assessment and Plan: Patient tested positive for COVID. He is on vaccinated for COVID. He was short of breath and found to be hypoxic by EMS. Chest x-ray shows diffuse lung disease. CTA showed no pulmonary emboli but did again show diffuse lung disease with a posterior predominance consistent with COVID pneumonia. D-dimer was 1.4. Lactic acid was 5.1. CRP was 7.2. Will continue remdesivir and dexamethasone that was started out of the emergency department. Will obtain a copy of his COVID results. Will repeat COVID test before starting baricitinib. Stop IV fluids (3) Supraventricular tachycardia: Code(s): I47.1 - Supraventricular tachycardia Status: Acute Assessment and Plan: Patient presents to the emergency room with a heart rate 144 an EKG showing atrial tachycardia. Probably SVT. Patient history of SVT. He is on metoprolol on admission. Does not appear that he received any medications in the emergency department for this but was started on IV fluids. Heart rate remains controlled. Continue low-dose metoprolol. (4) Hypertension: Code(s): I10 - Essential (primary) hypertension Status: Acute Assessment and Plan: Patient's blood pressure was reviewed on 09/24 Blood pressure remains well controlled. Continue low dose Metoprolol. Advanced metoprolol as needed (5) Anxiety: Code(s): F41.9 - Anxiety disorder, unspecified Status: Acute Assessment and Plan: Mood stable. Not on medications for anxiety. Continue to monitor. (6) BPH (benign prostatic hyperplasia): Code(s): N40.0 - Benign prostatic hyperplasia without lower urinary tract symptoms Status: Acute Assessment and Plan: Stable. Not on home medications for BPH. Monitor for urine retention. (7) GERD (gastroesophageal reflux disease): Code(s): K21.9 - Gastro-esophageal reflux disease without esophagitis Status: Acute Assessment and Plan: Stable. Continue Pepcid (8) DVT prophylaxis: Code(s): Z29.9 - Encounter for prophylactic measures, unspecified Status: Acute Assessment and Plan: Lovenox. Subjective Date/time seen: 09/24/21 11:18 Interval history: 66yo male with hx of anxiety, SVT, HTN and BPH here for SOB from [facility]. Patient is unvaccinated. Called to the room this morning for worsening hypoxia. Patient on HFNC and NRB mask with SpO2 in the high 80's. He feels SOB not no CP or n/v. Not able to tolerate lying prone. Exam Narrative: AF 99.7 125/50 103 35 93% bipap Gen - NARD lying semi recumbent in bed Chest -distant breath sounds CV - RRR S1/S2 Abd - Soft, NT/ND, Positive BS Ext - No pedal edema Psych - Nml mood and affect Skin - Warm and dry Objective Data Vital Signs Vital Signs: Vital Signs - 24 hr 09/23/21 12:00 09/23/21 12:13 09/23/21 12:15 Temperature 97.2 F L Pulse Rate 63 66 62 Respiratory Rate 36 H Blood Pressure 118/60 Pulse Oximetry 91 92 09/23/21 14:21 09/23/21 16:00 09/23/21 16:41
--- NOTE | 2021-09-24 11:58 | PC.NURSE ---
0900- am po medications not given at this time- pt on BIPAP-100% FI02
[2021-09-24 12:31] LABS: Alveolar/Arterial O2 Gradient 623.1 mmHg; Base Excess ABG 1.2 mEq/l (+/-2.0); Fractional Inspired Oxygen 100 %; HCO3 ABG 22.4 mEq/l (22.0-26.0); Oxygen Content ABG 18.3 %vol (16.0-22.0); Oxygen Saturation ABG 94.8 % (95.0-100.0); Oxyhemoglobin 92.6 % THb (90.0-100.0); PCO2 ABG 26.7 mmHg (35.0-45.0); PO2 ABG 63.2 mmHg (80.0-100.0); PO2 FiO2 Ratio Arterial Blood 0.63 %; Total Hemoglobin 14.1 g/dL (12.0-18.0)
[2021-09-24 12:32] LABS: Device BIPAP; Modified Allen's Test Pass; Site Drawn LEFT RADIAL; pH ABG 7.541 (7.350-7.450)
[2021-09-24 12:33] LABS: Expiratory Pressure 6 cmH2O; Inspiratory Pressure 14 cmH2O
[2021-09-24] MEDS: BARICITINIB 2 MG TABLET 4 MG PO (13:13)
[2021-09-24] MEDS: FAMOTIDINE 20 MG TABLET PO ×2 (13:13→20:53)
[2021-09-24] MEDS: ASPIRIN 325 MG TABLET PO (13:13)
[2021-09-24] MEDS: METOPROLOL TARTRATE 12.5 MG TABLET PO ×2 (13:36→20:53)
[2021-09-24] MEDS: LORazepam INJ (*CRX) 2 MG/ML VIAL 0.5 MG IV PUSH (21:31)
[2021-09-25] VITALS (41 sets, daily range): BP systolic 77–139; BP diastolic 43–69; PULSE 54–119; RESP 24–43; TEMP 37.4–39; O2SAT 6–100; BMI 25.4
[2021-09-25] MEDS: LORazepam INJ (*CRX) 2 MG/ML VIAL 1 MG IV PUSH ×2 (02:50→04:30)
[2021-09-25] MEDS: HALOPERIDOL LACTATE 5 MG/ML VIAL IM (04:30)
[2021-09-25] MEDS: diphenhydrAMINE HCl INJ 50 MG/ML VIAL 25 MG IV PUSH (04:30)
--- NOTE | 2021-09-25 06:17 | ECG_ITS ---
Measurements Intervals [place] Rate: 100 P: -66 NM: 153 QRS: -38 QRSD: 120 T: 104 QT: 349 QTc: 451 Interpretive Statements SINUS OR ECTOPIC ATRIAL TACHYCARDIA INCOMPLETE LEFT BUNDLE BRANCH BLOCK DELAYED PRECORDIAL R/S TRANSITION ST-T WAVE ABNORMALITY IN HIGH LATERAL LEADS- CONSIDER ISCHEMIA ABNORMAL ECG Electronically Signed On 09-25-2021 10:59:22 [employer] by Tyler Tyler D.O.
--- NOTE | 2021-09-25 06:22 | ECG_ITS ---
Measurements Intervals [place] Rate: 169 P: OK: 0 QRS: -44 QRSD: 125 T: 105 QT: 299 QTc: 502 Interpretive Statements SUPRAVENTRICULAR TACHYCARDIA LEFT AXIS DEVIATION LEFT BUNDLE BRANCH BLOCK BASELINE WANDER- V4 ABNORMAL ECG Electronically Signed On 09-27-2021 16:46:07 CHOKER SETTER by Tyler Tyler D.O.
[2021-09-25 06:34] LABS: Alveolar/Arterial O2 Gradient 480.3 mmHg; Base Excess ABG -3.3 mEq/l (+/-2.0); Carboxyhemoglobin 0.3 % THb (0-2.0); Fractional Inspired Oxygen 100 %; HCO3 ABG 23.2 mEq/l (22.0-26.0); Methemoglobin ABG 0.5 %THb (0-1.5); Modified Allen's Test Pass; Oxygen Content ABG 21.6 %vol (16.0-22.0); Oxygen Saturation ABG 99.2 % (95.0-100.0); Oxyhemoglobin 97.5 % THb (90.0-100.0); PO2 ABG 185.7 mmHg (80.0-100.0); PO2 FiO2 Ratio Arterial Blood 1.86 %; Reduced Hemoglobin 1.7 %THb (0-5.0); Site Drawn LEFT RADIAL; Total Hemoglobin 15.5 g/dL (12.0-18.0); pH ABG 7.312 (7.350-7.450)
[2021-09-25 06:35] LABS: Arterial Blood Gas PEEP 8 cmH2O; Arterial Blood Gas Tidal Volume 500 ml; Arterial Blood Gas Vent Mode CMV; Arterial Blood Gas Ventilator rate 18 /MIN; Device VENTILATOR
[2021-09-25] MEDS: SODIUM CHLORIDE 0.9% IV 1,000 ML 999 ML IV CONT ×2 (06:35→07:36)
--- NOTE | 2021-09-25 06:49 | WPDPROCEDUR ---
Procedures Intubation Intubation Date: 09/25/21 Intubation Time: 05:30 A pre-procedural Time-Out was completed immediately before starting the procedure and confirmed: Patient Identification, Site, Procedure, Patient Position and the Availability of Requisite Equipment: Yes Sedative: etomidate Mg given: 15 Paralytic: rocuronium Mg given: 75 Laryngoscope: fiber optic video scope ET tube size: 8 Tube secured depth (cm): 23 Tube secured location: lips Tube placement confirmation: visualized tube passing through cords, equal breath sounds bilaterally, no breath sounds over epigastrium and confirmation by capnometry Patient tolerated procedure: well and no complications Intubation complications: none
--- NOTE | 2021-09-25 06:57 | PM.EVENT ---
Event Note Event Note Event Note: Patient was noted to be desaturating without recovery while on BiPAP decision was made to place patient on ventilator support. Patient was intubated and is currently on ventilator support, discussed with assistant gm of content & delivery.
[2021-09-25] MEDS: MIDAZOLAM 100MG/NS 100ML(*CRX) 100 MG/100 ML BAG 6 MG IV CONT ×2 (07:00→19:54)
[2021-09-25] MEDS: FENTANYL 2,500MCG/NS250ML(*CRX 2,500 MCG/250 ML BAG 10 MCG IV CONT (07:00)
[2021-09-25] MEDS: AMIODARONE 360 MG/D5W 200 ML 360 MG/200 ML BAG 33.33 MG IV CONT (07:00)
[2021-09-25 07:09] LABS: Basophils Percent Auto 0.2 % (0.2-1.2); Hemoglobin 13.5 g/dL (14.0-18.0); Immature Granulocyte Absolute 0.94 K/mm3 (0.00-0.031); Immature Granulocyte Percent A 10.3 % (0-0.5); Lymphocytes Absolute Auto 0.37 K/mm3 (0.9-3.2); Lymphocytes Percent Auto 4.1 % (18.3-44.2); Mean Corpuscular HGB Conc 34.6 g/dl (32-36); Mean Corpuscular Hemoglobin 33.5 pg (26-34); Mean Corpuscular Volume 96.8 fl (80-100); Mean Platelet Volume 10.2 fl (7.4-10.4); Neutrophils Absolute Auto 5.8 K/mm3 (1.3-6.7); Neutrophils Percent Auto 63.4 % (45.5-73.1); Platelet Count Result 212 k/mm3 (150-375); Red Blood Count 4.03 M/mm3 (4.6-6.20); Red Cell Distribution Width 11.9 % (11.5-14.5); White Blood Count 9.1 K/mm3 (4.5-10.0)
[2021-09-25 07:24] LABS: Alanine Aminotransferase 45 U/L (4-50); Albumin Level 3.5 g/dL (3.5-5.1); Alkaline Phosphatase 60 U/L (38-126); Anion Gap 15 mmol/L (8-16); Aspartate Amino Transferase 65 U/L (17-59); Bilirubin,Total 1.6 mg/dL (0.2-1.3); Blood Urea Nitrogen 22 mg/dL (9-20); Calcium 8.1 mg/dL (8.4-10.2); Carbon Dioxide 22 mmol/L (22-30); Chloride 100 mmol/L (98-107); Estimated CRCL calculation 72 ml/min; Estimated Glomerular Filt Rate > 60; Glucose 154 mg/dL (65-110); Potassium 3.8 mmol/L (3.4-5.0); Sodium 137 mmol/L (137-145)
[2021-09-25 07:27] LABS: INR 1.4; Prothrombin Time 17.1 Seconds (11.1-14.7)
[2021-09-25] MEDS: hetaSTARCH 6%/NACL 500 ML 250 ML IV CONT (09:40)
[2021-09-25 11:07] LABS: Alanine Aminotransferase 47 U/L (4-50)
--- NOTE | 2021-09-25 12:01 | PCFNICU ---
ICU Rounding Note: Pt current nutrition is NPO. Nutrition recommendation: Vital AF 1.2 at 20 ml/hr advancing by 10 ml q 4 hours to goal rate of 65 ml/hr over 22 hours. Last recorded weight is 73.8 kg-stable Bowel Motility:+BM reported 09/25 Labs Reviewed:Glu 154, BUN 22 Meds Noted:Fentanyl, Versed, Remdesivir, Decadron, Lovenox Skin: WNL Additional Notes: Patient current with mechanical vent. Tube feeding starting today of Vital AF 1.2 at 20 ml/hr goal rate at 65 ml/hr. Free water flush 30 ml q 4 hours. Monitoring: Following daily in ICU rounds and reassessing every Thursday and Thursday.
[2021-09-25] MEDS: REMDESIVIR 100 MG/NS 250 ML 100 MG/250 ML BAG 250 MG IVPB (12:22)
[2021-09-25] MEDS: ENOXAPARIN 40 MG/0.4 ML SYRINGE SUB-Q (12:24)
[2021-09-25] MEDS: AMIODARONE 360 MG/D5W 200 ML 360 MG/200 ML BAG 16.67 MG IV CONT (12:56)
[2021-09-25] MEDS: CENTRAL LINE FLUSH 10 ML IV PUSH ×2 (13:42→20:25)
--- NOTE | 2021-09-25 13:44 | WPDCNINT ---
Assessment and Plan Assessment and plan (1) Acute respiratory failure: Code(s): J96.00 - Acute respiratory failure, unspecified whether with hypoxia or hypercapnia Status: Acute Assessment and Plan: Acute hypoxic respiratory failure likely related to COVID pneumonia -patient intubated on 09/25/2021 after of failing BiPAP in being on 100% FiO2, he was also pulling at his BiPAP mask and not keeping it on there by desaturating -will continue low tidal volume strategy to avoid volume trauma -will add bronchodilators and Pulmicort (2) Pneumonia due to 2019-nCoV: Code(s): U07.1 - COVID-19; J12.82 - Pneumonia due to coronavirus disease 2019 Status: Acute Assessment and Plan: Positive COVID pneumonia, under vaccinated -continue Remdesivir, dexamethasone and baricitinib -inflammatory markers are elevated -continue droplet, airborne and contact isolation/precautions (3) Supraventricular tachycardia: Code(s): I47.1 - Supraventricular tachycardia Status: Acute Assessment and Plan: Patient had an episode of supraventricular tachycardia with heart rates in the 140s in the ER -he has been amiodarone infusion (4) Hypotension: Code(s): I95.9 - Hypotension, unspecified Status: Acute Assessment and Plan: Patient was hypotensive this morning, received 2 L IV fluid bolus and has pain with improvement in blood pressures -he also received metoprolol this morning. -continue to closely monitor blood pressure (5) GERD (gastroesophageal reflux disease): Code(s): K21.9 - Gastro-esophageal reflux disease without esophagitis Status: Acute Assessment and Plan: Will add Protonix (6) DVT prophylaxis: Code(s): Z29.9 - Encounter for prophylactic measures, unspecified Status: Acute Assessment and Plan: Lovenox Additional Plan Nutrition: Will start tube feeds Code status: Full code Critical care time spent: 44 minutes This dictation may have been done utilizing a voice recognition system. Attempts have been made to correct errors. However, there may be uncorrected grammatical, spelling, and recognition errors present. Due to a high probability of clinically significant, life threatening deterioration, the patient required my highest level of preparedness to intervene emergently and I personally spent this critical care time directly and personally managing the patient. This critical care time included obtaining a history; examining the patient; pulse oximetry; ordering and review of studies; arranging urgent treatment with development of a management plan; evaluation of patient's response to treatment; frequent reassessment; and discussions with other providers. It was exclusive of separately billable procedures and treating other patients and teaching time. Please see Assessment and Plan section and the rest of the note for further information on patient assessment and treatment Promotions Specialist Consult Note Consult date: 09/25/21 Time Seen: 07:09 Reason for consult: Acute respiratory failure due to hypoxia, COVID 19 pneumonia, SVT HPI: Tho Moreno is a 66 year old male with past medical history of anxiety, BPH, GERD, hypertension, supraventricular tachycardia presented the ED on 09/22/2021 with complains of shortness of breath. In the ER patient stated that he has been feeling unwell for almost a week prior to admission with cough, nausea and body aches. He was tested positive for COVID-19 on 09/21. He was saturating in the 80s on room and the ER and was placed high-flow therapy in the ER with improvement in his O2 sats. Patient had is not vaccinated. He was also found to be in SVT with heart rate in the 140s and was started on metoprolol in the intermediate Unit. On the morning of 09/25/2021 patient was desaturating despite being on BiPAP, 100% FiO2, decision was made to intubate the patient. He he was also removing his BiPAP mask in was desaturating
[2021-09-25] MEDS: LEVALBUTEROL NEB 1.25 MG/3 ML 0.63 MG INHALATION ×2 (14:00→22:00)
[2021-09-25] MEDS: IPRATROPIUM BR 0.02% INH SOLN 0.5 MG/2.5 ML VIAL INHALATION ×2 (14:00→22:00)
[2021-09-25] MEDS: ROCURONIUM BROMIDE 50 MG/5 ML VIAL IV PUSH (14:22)
[2021-09-25] MEDS: CISATRACURIUM BESYLATE 20 MG/10 ML VIAL 11.1 MG IV PUSH (14:56)
[2021-09-25] MEDS: CISATRACURIUM BESYLATE 200 MG in DEXTROSE 5% 80 ML 6.64 ML IV CONT (14:56)
[2021-09-25] MEDS: MINERAL OIL/WHITE PETROLATUM OINTMENT 1 APPLIC EACH EYE ×2 (14:59→19:57)
[2021-09-25] MEDS: PANTOPRAZOLE SODIUM IV 40 MG VIAL IV PUSH (15:11)
[2021-09-25] MEDS: ACETAMINOPHEN 325 MG TABLET 650 MG PO (15:11)
[2021-09-25] MEDS: ASPIRIN 325 MG TABLET PO (15:13)
[2021-09-25] MEDS: BARICITINIB 2 MG TABLET 4 MG PO (15:13)
--- NOTE | 2021-09-25 15:54 | P.PCNBED_ITS ---
Procedures Central Line Placement Right IJ: Central Line Date: 09/25/21 Discussed w/ the patient/family/POA,the placement of a central venous catheter, including its clinical necessity/indication & associated potential risks, benifits and alternatives.: Yes The patient/family/POA understand(s) and acknowledge(s) the need to proceed with central venous catheter insertion as an important element of the patient's clinical management.: Yes Time Out Performed: Yes Patient Position: supine Patient placed on monitor/pulse ox: Yes Provider Prep: mask, sterile gown, sterile gloves, Max. sterile barrier precautions, cap and hand hygiene with conventional soap/water or alcohol based hand rub Central line prep: 2% Chlorhexidine scrub Local anesthesia used: lidocaine 1% Amount of anesthesia used (ml): 3 Sterile US Technique with sterile gel/sterile probe covers: Yes Central line lumen inserted: triple [place]: 12 Length (cm): 16 Depth of Insertion (cm): 16 Post Procedure: sutured in place, good blood return, all ports aspirated, flushed, capped, transparent dressing, hemostatic product, antimicrobial product, securement product and aseptic technique maintained throughout procedure Post procedure x-ray: tip of catheter in good position and no pneumothorax seen Patient tolerated procedure: well Complications: none
[2021-09-25] MEDS: NOREPINEPHRINE 8 MG/D5W 250 ML 8 MG/250 ML BAG 9.38 MG IV CONT (16:03)
[2021-09-25 16:43] LABS: Lactic Acid Reflex 2.4 mmol/L (0.7-2.1)
--- NOTE | 2021-09-25 17:00 | PM.IMPN ---
Progress Note: A&P Assessment and Plan (1) Acute respiratory failure: Code(s): J96.00 - Acute respiratory failure, unspecified whether with hypoxia or hypercapnia Status: Acute Assessment and Plan: Acute respiratory failure secondary to COVID pneumonia. Patient was hypoxic in the field. He was started on supplemental oxygen. Lactic markedly elevated but resolved quickly. CTA showed no pulmonary emboli but did again show diffuse lung disease with a posterior predominance consistent with COVID pneumonia. COVID PCR positive here 09/23. On HFNC and NRB but SpO2 in the 80's%. Changed to BiPAP yesterday. Patieint intuabted earlier this morning. Prone positioning. Continue sedation but decrease due to HoTN. 35 minutes spent on critical care (2) Hypotension: Code(s): I95.9 - Hypotension, unspecified Status: Acute Assessment and Plan: Patient became HoTN this morning after he received metoprolol for the probable SVT. he was treated with IV fluids and ultimately required Levophed. (3) Pneumonia due to 2019-nCoV: Code(s): U07.1 - COVID-19; J12.82 - Pneumonia due to coronavirus disease 2019 Status: Acute Assessment and Plan: Patient tested positive for COVID. He is not vaccinated for COVID. He was short of breath and found to be hypoxic by EMS. Chest x-ray shows diffuse lung disease. CTA showed no pulmonary emboli but did again show diffuse lung disease with a posterior predominance consistent with COVID pneumonia. COVID PCR positive here 09/23. D-dimer was 1.4. Lactic acid was 5.1. CRP was 7.2. Continue remdesivir, baricitinib and dexamethasone. (4) Supraventricular tachycardia: Code(s): I47.1 - Supraventricular tachycardia Status: Acute Assessment and Plan: Patient presents to the emergency room with a heart rate 144 an EKG showing atrial tachycardia. Probably SVT. Patient history of SVT. He was on metoprolol on admission. Patient was on metoprolol here but developed tachycardia felt to be AFlutter. [place] that the tachycardia was contributing to his HoTN. Started on Amio drip. HoTN treated as mentioned above (5) Hypertension: Code(s): I10 - Essential (primary) hypertension Status: Acute Assessment and Plan: Patient's blood pressure dropped with SVT and metoprolol. As above. (6) Anxiety: Code(s): F41.9 - Anxiety disorder, unspecified Status: Acute Assessment and Plan: Not on medications for anxiety. Continue to monitor. may need anxiolytics when he is close to extubation (7) BPH (benign prostatic hyperplasia): Code(s): N40.0 - Benign prostatic hyperplasia without lower urinary tract symptoms Status: Acute Assessment and Plan: Stable. Not on home medications for BPH. Feldman secured (8) GERD (gastroesophageal reflux disease): Code(s): K21.9 - Gastro-esophageal reflux disease without esophagitis Status: Acute Assessment and Plan: Stable. Continue Pepcid (9) DVT prophylaxis: Code(s): Z29.9 - Encounter for prophylactic measures, unspecified Status: Acute Assessment and Plan: Lovenox. Subjective Date/time seen: 09/25/21 17:00 Interval history: 66yo male with hx of anxiety, SVT, HTN and BPH here for SOB from [facility]. Patient is unvaccinated. Frank moved to ICU this morning and was intubated for worsening hypoxia. He developed acute SVT unresponsive to carotid massage, HR 160's. He was given metoprolol (SBP 115) with some benefit but SBP dropped into the 80's. Amio bolus and then drip ordered as well as IV fluid bolus. Sedation turned down. Turned over to lead game designer and central line ultimately had to be placed. Levophed started. Review of Systems Review of Systems: ROS unobtainable: Yes unobtainable due to endotracheal tube Exam Narrative: 102.2 77/57 66 26 95% MV Gen - intubated and sedated HEENT - NGT and ETT secure
[2021-09-25 19:28] LABS: Reflex Lactic Acid Yes or No Add Lactic
[2021-09-25] MEDS: FAMOTIDINE 20 MG TABLET PO (19:57)
[2021-09-25] MEDS: FENTANYL 2,500MCG/NS250ML(*CRX 2,500 MCG/250 ML BAG 20 MCG IV CONT (20:23)
[2021-09-25 20:42] LABS: Add Urine Microscopic? YES; Appearance Urine Cloudy (Clear); Bacteria Urine Trace /hpf; Bilirubin Urine Negative (Negative); Blood Urine 2+ (Negative); Color Urine Amber (Yellow); Glucose Urine UA 1+ mg/dL (Negative); Ketones Urine Trace mg/dL (Negative); Leukocyte Esterase Ur Negative LEU/UL (NEGATIVE); Mucus Urine Heavy /lpf; Nitrate Urine Negative (Negative); Protein Urine 2+ mg/dL (Negative); RBC Urine 21-50 /hpf (0-2); Squamous Epithelial Cell Urine Occasional /hpf (Few)
[2021-09-25 20:47] LABS: Lactic Acid 2.1 mmol/L (0.7-2.1)
[2021-09-25 20:48] LABS: Specific Grav Ur 1.044 (1.001-1.035)
[2021-09-25] MEDS: BUDESONIDE RESPULE NEB 0.5 MG/2 ML AMP INHALATION (22:01)
[2021-09-26] VITALS (37 sets, daily range): BP systolic 95–108; BP diastolic 54–67; PULSE 45–56; RESP 26–27; TEMP 36–37.3; O2SAT 90–97
[2021-09-26] MEDS: AMIODARONE 360 MG/D5W 200 ML 360 MG/200 ML BAG 16.67 MG IV CONT (00:37)
[2021-09-26] MEDS: IPRATROPIUM BR 0.02% INH SOLN 0.5 MG/2.5 ML VIAL INHALATION ×3 (02:00→20:50)
[2021-09-26] MEDS: LEVALBUTEROL NEB 1.25 MG/3 ML 0.63 MG INHALATION ×3 (02:00→20:45)
[2021-09-26 05:12] LABS: Hemoglobin 11.7 g/dL (14.0-18.0); Mean Corpuscular HGB Conc 33.4 g/dl (32-36); Mean Corpuscular Hemoglobin 32.7 pg (26-34); Mean Corpuscular Volume 97.8 fl (80-100); Mean Platelet Volume 10.2 fl (7.4-10.4); Platelet Count Result 244 k/mm3 (150-375); Red Blood Count 3.58 M/mm3 (4.6-6.20); Red Cell Distribution Width 12.1 % (11.5-14.5); White Blood Count 11.5 K/mm3 (4.5-10.0)
[2021-09-26] MEDS: CENTRAL LINE FLUSH 10 ML IV PUSH ×3 (05:12→21:00)
[2021-09-26 05:28] LABS: Alanine Aminotransferase 39 U/L (4-50); Albumin Level 2.5 g/dL (3.5-5.1); Alkaline Phosphatase 53 U/L (38-126); Anion Gap 5 mmol/L (8-16); Aspartate Amino Transferase 53 U/L (17-59); Bilirubin,Total 0.7 mg/dL (0.2-1.3); Blood Urea Nitrogen 26 mg/dL (9-20); Calcium 7.4 mg/dL (8.4-10.2); Carbon Dioxide 28 mmol/L (22-30); Chloride 102 mmol/L (98-107); Estimated CRCL calculation 64 ml/min; Estimated Glomerular Filt Rate > 60; Glucose 221 mg/dL (65-110); Magnesium 2.7 mg/dL (1.6-2.3); Phosphorus 2.9 mg/dL (2.5-4.5); Potassium 4.2 mmol/L (3.4-5.0); Sodium 135 mmol/L (137-145)
[2021-09-26 05:30] LABS: INR 1.3; Lactic Acid Reflex 1.8 mmol/L (0.7-2.1); Prothrombin Time 16.3 Seconds (11.1-14.7)
[2021-09-26 06:19] LABS: Base Excess ABG -3.3 mEq/l (+/-2.0); Oxygen Saturation ABG 97.4 % (95.0-100.0); PCO2 ABG 46.1 mmHg (35.0-45.0); PO2 ABG 106.3 mmHg (80.0-100.0); Total Hemoglobin 13.9 g/dL (12.0-18.0); pH ABG 7.316 (7.350-7.450)
[2021-09-26 06:20] LABS: Alveolar/Arterial O2 Gradient 270.8 mmHg; Carboxyhemoglobin 0.3 % THb (0-2.0); Device VENTILATOR; Fractional Inspired Oxygen 60 %; Methemoglobin ABG 0.4 %THb (0-1.5); Modified Allen's Test Pass; Oxyhemoglobin 96.4 % THb (90.0-100.0); PO2 FiO2 Ratio Arterial Blood 1.77 %; Reduced Hemoglobin 2.9 %THb (0-5.0); Site Drawn RIGHT RADIAL
[2021-09-26 06:21] LABS: Arterial Blood Gas PEEP 10 cmH2O; Arterial Blood Gas Tidal Volume 400 ml; Arterial Blood Gas Vent Mode CMV; Arterial Blood Gas Ventilator rate 26 /MIN
[2021-09-26 07:45] LABS: Band Neutrophils Percent 5 % (0-6); Lymphocytes Absolute Manual 0.46 K/mm3 (1.1-4.5); Metamyelocytes Percent 1 %; Monocytes Absolute Manual 1.03 K/mm3 (0.1-0.90); Monocytes Percent Manual 9 % (3-9); Neutrophils Absolute Manual 9.89 K/mm3 (1.3-6.7); Neutrophils Percent Manual 81 % (46-73); Platelet Estimate Adequate (Adequate); Total Cells Counted 100
[2021-09-26] MEDS: BUDESONIDE RESPULE NEB 0.5 MG/2 ML AMP INHALATION ×2 (08:22→20:45)
[2021-09-26] MEDS: CISATRACURIUM BESYLATE 200 MG in DEXTROSE 5% 80 ML 5.54 ML IV CONT (08:37)
[2021-09-26] MEDS: BARICITINIB 2 MG TABLET 4 MG PO (08:39)
[2021-09-26] MEDS: PANTOPRAZOLE SODIUM IV 40 MG VIAL IV PUSH (08:39)
[2021-09-26] MEDS: ENOXAPARIN 40 MG/0.4 ML SYRINGE SUB-Q (08:39)
[2021-09-26] MEDS: FAMOTIDINE 20 MG TABLET PO ×2 (08:39→20:59)
[2021-09-26] MEDS: ASPIRIN 325 MG TABLET PO (08:39)
[2021-09-26] MEDS: MINERAL OIL/WHITE PETROLATUM OINTMENT 1 APPLIC EACH EYE ×2 (08:39→20:59)
[2021-09-26] MEDS: FENTANYL 2,500MCG/NS250ML(*CRX 2,500 MCG/250 ML BAG 20 MCG IV CONT ×2 (08:55→23:01)
[2021-09-26] MEDS: MIDAZOLAM 100MG/NS 100ML(*CRX) 100 MG/100 ML BAG 6 MG IV CONT (09:04)
[2021-09-26] MEDS: REMDESIVIR 100 MG/NS 250 ML 100 MG/250 ML BAG 250 MG IVPB (11:10)
--- NOTE | 2021-09-26 11:37 | WPDINTPN ---
Progress Note: A&P Assessment and Plan (1) Acute respiratory failure: Code(s): J96.00 - Acute respiratory failure, unspecified whether with hypoxia or hypercapnia Status: Acute Assessment and Plan: Acute hypoxic respiratory failure likely related to COVID pneumonia -patient intubated on 09/25/2021 after of failing BiPAP in being on 100% FiO2, he was also pulling at his BiPAP mask and not keeping it on there by desaturating -chest x-ray and ABGs reviewed, patient currently on peep of 10 and 60% FiO2, wean FiO2 to maintain O2 sats > 92% -continue low tidal volume strategy to avoid volume trauma -continue bronchodilators and Pulmicort -sedated with fentanyl, Versed infusion, patient also on Nimbex for neuromuscular blockade (2) Pneumonia due to 2019-nCoV: Code(s): U07.1 - COVID-19; J12.82 - Pneumonia due to coronavirus disease 2019 Status: Acute Assessment and Plan: Positive COVID pneumonia, under vaccinated -continue Remdesivir, dexamethasone and baricitinib -inflammatory markers are elevated -continue droplet, airborne and contact isolation/precautions (3) Supraventricular tachycardia: Code(s): I47.1 - Supraventricular tachycardia Status: Acute Assessment and Plan: Patient had an episode of supraventricular tachycardia with heart rates in the 140s in the ER -patient was on amiodarone and was in sinus bradycardia -amiodarone infusion has been turned off (4) Hypotension: Code(s): I95.9 - Hypotension, unspecified Status: Acute Assessment and Plan: Patient was hypotensive this morning, received 2 L IV fluid bolus and has pain with improvement in blood pressures -he also received metoprolol this morning. -continue to closely monitor blood pressure -patient was started head which currently is at 1 mcg/min. -lactic acid is normal -patient has been pancultured and await results (5) GERD (gastroesophageal reflux disease): Code(s): K21.9 - Gastro-esophageal reflux disease without esophagitis Status: Acute Assessment and Plan: Continue Protonix (6) DVT prophylaxis: Code(s): Z29.9 - Encounter for prophylactic measures, unspecified Status: Acute Assessment and Plan: Continue Lovenox Additional Plan Nutrition: Tolerating tube feeds 09/25: Discussed with daughter, Tawana and updated her with patient's condition plan of care. Code status: Full code Critical care time spent: 34 minutes This dictation may have been done utilizing a voice recognition system. Attempts have been made to correct errors. However, there may be uncorrected grammatical, spelling, and recognition errors present. Due to a high probability of clinically significant, life threatening deterioration, the patient required my highest level of preparedness to intervene emergently and I personally spent this critical care time directly and personally managing the patient. This critical care time included obtaining a history; examining the patient; pulse oximetry; ordering and review of studies; arranging urgent treatment with development of a management plan; evaluation of patient's response to treatment; frequent reassessment; and discussions with other providers. It was exclusive of separately billable procedures and treating other patients and teaching time. Please see Assessment and Plan section and the rest of the note for further information on patient assessment and treatment Subjective Date/time seen: 09/26/21 11:37 Interval history: Reason for consult: Acute respiratory failure due to hypoxia, COVID 19 pneumonia, SVT, under vaccinated Intubated on 09/25/2021 after failing BiPAP 09/26/2021: Patient remains intubated, on CMV mode of ventilation, peep of 10 and 60% FiO2. Patient is sedated with fentanyl and Versed infusion, was started on Nimbex for neuromuscular blockade yesterday due to desaturations and ventilator asynchrony. Lactic acid has normalized. Tresa
--- NOTE | 2021-09-26 11:46 | PCFNICU ---
ICU Rounding Note: Pt current nutrition is Vital AF 1.2 at 65 ml/hr over 22 hours. Last recorded weight is 71.2 kg-stable Bowel Motility:+BM reported 09/25 Labs Reviewed:Alb 2.5,BUN 26, Glu 221, Na 135, Hgb 11.7,Hct 35.0 Meds Noted:Fentanyl, Versed, Decadron, Lovenox, Protonix, Remdesivir, Pepcid, Atrovent, Levophed, Nimbex. Skin: WNL Additional Notes: Patient remains on mechanical vent and tube feedings of Vital AF 1.2 at 65 ml/hr over 22 hours-tolerating. Free water flush 30 ml q 4 hours. Agree with diet orders. Monitoring: Following daily in ICU rounds and reassessing every Thursday and Thursday.
--- NOTE | 2021-09-26 15:46 | PM.IMPN ---
Progress Note: A&P Assessment and Plan (1) Acute respiratory failure: Code(s): J96.00 - Acute respiratory failure, unspecified whether with hypoxia or hypercapnia Status: Acute Assessment and Plan: Acute respiratory failure secondary to COVID pneumonia. Patient was hypoxic in the field. He was started on supplemental oxygen. Lactic markedly elevated but resolved quickly. Chest CTA showed no pulmonary emboli but did again show diffuse lung disease with a posterior predominance consistent with COVID pneumonia. COVID PCR positive here 09/23. Was on HFNC and NRB but SpO2 in the 80's%. Changed to BiPAP but ultimately intubated 09/25/21. Prone positioning as tolerated. Continue sedation. Wean MV as toerlated. Nebs started. (2) Hypotension: Code(s): I95.9 - Hypotension, unspecified Status: Acute Assessment and Plan: Patient develope tachycardia with HR into the 160's. His BP was stable so metoprolol given but pateitn became HoTN. Sedation was decreased and he was treated with IV fluids. He ultimately required Levophed. BP stable and almost off Levophed now. Amio has been stopped due to bradycardia. (3) Pneumonia due to 2019-nCoV: Code(s): U07.1 - COVID-19; J12.82 - Pneumonia due to coronavirus disease 2019 Status: Acute Assessment and Plan: Patient tested positive for COVID. He is not vaccinated for COVID. He was short of breath and found to be hypoxic by EMS. Chest x-ray shows diffuse lung disease. CTA showed no pulmonary emboli but did again show diffuse lung disease with a posterior predominance consistent with COVID pneumonia. COVID PCR positive here 09/23. Continue remdesivir, baricitinib and dexamethasone. (4) Supraventricular tachycardia: Code(s): I47.1 - Supraventricular tachycardia Status: Acute Assessment and Plan: Patient presents to the emergency room with a heart rate 144 an EKG showing atrial tachycardia. Probably SVT. Patient history of SVT. He takes metoprolol at home for this and this was continued here. Patiet treated with metoprolol then Amio drip after intubation but now HR into the 40's. May have sick sinus syndrome. HoTN treated as mentioned above. Amio stopped. Follow. (5) Hypertension: Code(s): I10 - Essential (primary) hypertension Status: Acute Assessment and Plan: As above. (6) Anxiety: Code(s): F41.9 - Anxiety disorder, unspecified Status: Acute Assessment and Plan: Not on medications for anxiety. Continue to monitor. May need anxiolytics when he is close to extubation (7) BPH (benign prostatic hyperplasia): Code(s): N40.0 - Benign prostatic hyperplasia without lower urinary tract symptoms Status: Acute Assessment and Plan: Stable. Not on home medications for BPH. Feldman secured (8) GERD (gastroesophageal reflux disease): Code(s): K21.9 - Gastro-esophageal reflux disease without esophagitis Status: Acute Assessment and Plan: Stable. Continue Pepcid and Protonix. Probably could stop Pepcid. (9) DVT prophylaxis: Code(s): Z29.9 - Encounter for prophylactic measures, unspecified Status: Acute Assessment and Plan: Lovenox. Subjective Date/time seen: 09/26/21 15:46 Interval history: 66yo male with hx of anxiety, SVT, HTN and BPH here for SOB from [facility]. Patient is unvaccinated. Patient remains stable overnight. Amio stopped due to bradycardia. Remains sedated and intubated. levophed being weaned off. Having increased residuals Review of Systems Review of Systems: ROS unobtainable: Yes unobtainable due to endotracheal tube Exam Narrative: 102.2 97.3 101/59 46 26 93% MV Gen - intubated and sedated HEENT - ETT secured Chest - lungs clear anteriorly CV - bradycardic, regualr; Tele showing sinus bradycardia. Abd - Soft, +BS - Feldman secured draining clear yellow urine Ext - No pedal ed
[2021-09-27] VITALS (31 sets, daily range): BP systolic 104–130; BP diastolic 49–65; PULSE 49–58; RESP 20–26; TEMP 36.3–37.2; O2SAT 91–95
[2021-09-27] MEDS: LEVALBUTEROL NEB 1.25 MG/3 ML 0.63 MG INHALATION ×4 (02:18→20:17)
[2021-09-27] MEDS: IPRATROPIUM BR 0.02% INH SOLN 0.5 MG/2.5 ML VIAL INHALATION ×4 (02:18→20:17)
[2021-09-27] MEDS: CISATRACURIUM BESYLATE 200 MG in DEXTROSE 5% 80 ML 5.54 ML IV CONT ×2 (02:46→21:21)
[2021-09-27] MEDS: MIDAZOLAM 100MG/NS 100ML(*CRX) 100 MG/100 ML BAG 6 MG IV CONT ×2 (03:00→20:01)
[2021-09-27] MEDS: CENTRAL LINE FLUSH 10 ML IV PUSH ×3 (04:48→20:01)
[2021-09-27 05:08] LABS: Basophils Percent Auto 0.1 % (0.2-1.2); Eosinophils Percent Auto 0.1 % (0-4.4); Hematocrit 31.4 % (42.0-52.0); Hemoglobin 10.5 g/dL (14.0-18.0); Immature Granulocyte Absolute 0.65 K/mm3 (0.00-0.031); Immature Granulocyte Percent A 6.7 % (0-0.5); Lymphocytes Absolute Auto 0.25 K/mm3 (0.9-3.2); Lymphocytes Percent Auto 2.6 % (18.3-44.2); Mean Corpuscular HGB Conc 33.4 g/dl (32-36); Mean Corpuscular Hemoglobin 33.2 pg (26-34); Mean Corpuscular Volume 99.4 fl (80-100); Mean Platelet Volume 10.6 fl (7.4-10.4); Monocytes Absolute Auto 1.8 K/mm3 (0.1-0.6); Monocytes Percent Auto 18.9 % (2.6-8.5); Neutrophils Percent Auto 71.6 % (45.5-73.1); Nucleated Red Blood Cells Perc 0.3 % (0.0-0.2); Platelet Count Result 208 k/mm3 (150-375); Red Blood Count 3.16 M/mm3 (4.6-6.20); Red Cell Distribution Width 12.4 % (11.5-14.5); White Blood Count 9.7 K/mm3 (4.5-10.0)
[2021-09-27 05:20] LABS: Alveolar/Arterial O2 Gradient 255.4 mmHg; Base Excess ABG -0.7 mEq/l (+/-2.0); Oxygen Content ABG 15.6 %vol (16.0-22.0); Oxygen Saturation ABG 94.6 % (95.0-100.0); PCO2 ABG 51.9 mmHg (35.0-45.0); Total Hemoglobin 11.8 g/dL (12.0-18.0); pH ABG 7.317 (7.350-7.450)
[2021-09-27 05:21] LABS: Carboxyhemoglobin 0.3 % THb (0-2.0); Device VENTILATOR; Fractional Inspired Oxygen 55 %; Methemoglobin ABG 0.3 %THb (0-1.5); Modified Allen's Test Unable to perform; Oxyhemoglobin 93.3 % THb (90.0-100.0); PO2 FiO2 Ratio Arterial Blood 1.44 %; Reduced Hemoglobin 6.1 %THb (0-5.0); Site Drawn RIGHT RADIAL
[2021-09-27 05:21] LABS: INR 1.3; Prothrombin Time 16.4 Seconds (11.1-14.7)
[2021-09-27 05:22] LABS: Arterial Blood Gas PEEP 10 cmH2O; Arterial Blood Gas Tidal Volume 400 ml; Arterial Blood Gas Vent Mode CMV; Arterial Blood Gas Ventilator rate 26 /MIN
[2021-09-27 05:25] LABS: Alanine Aminotransferase 30 U/L (4-50); Albumin Level 2.4 g/dL (3.5-5.1); Alkaline Phosphatase 46 U/L (38-126); Anion Gap 5 mmol/L (8-16); Aspartate Amino Transferase 26 U/L (17-59); Bilirubin,Total 0.3 mg/dL (0.2-1.3); Blood Urea Nitrogen 33 mg/dL (9-20); Calcium 7.8 mg/dL (8.4-10.2); Carbon Dioxide 28 mmol/L (22-30); Chloride 105 mmol/L (98-107); Estimated CRCL calculation 64 ml/min; Estimated Glomerular Filt Rate > 60; Glucose 162 mg/dL (65-110); Magnesium 2.8 mg/dL (1.6-2.3); Phosphorus 2.5 mg/dL (2.5-4.5); Potassium 4.5 mmol/L (3.4-5.0); Sodium 138 mmol/L (137-145)
[2021-09-27] MEDS: BUDESONIDE RESPULE NEB 0.5 MG/2 ML AMP INHALATION ×2 (08:11→20:17)
[2021-09-27] MEDS: MINERAL OIL/WHITE PETROLATUM OINTMENT 1 APPLIC EACH EYE ×2 (09:39→20:01)
[2021-09-27] MEDS: ENOXAPARIN 40 MG/0.4 ML SYRINGE SUB-Q (09:39)
[2021-09-27] MEDS: PANTOPRAZOLE SODIUM IV 40 MG VIAL IV PUSH (09:39)
[2021-09-27] MEDS: ASPIRIN 325 MG TABLET PO (09:39)
[2021-09-27] MEDS: BARICITINIB 2 MG TABLET 4 MG PO (09:39)
[2021-09-27] MEDS: FAMOTIDINE 20 MG TABLET PO ×2 (09:39→20:00)
[2021-09-27] MEDS: REMDESIVIR 100 MG/NS 250 ML 100 MG/250 ML BAG 250 MG IVPB (09:48)
[2021-09-27] MEDS: FENTANYL 2,500MCG/NS250ML(*CRX 2,500 MCG/250 ML BAG 20 MCG IV CONT (11:34)
--- NOTE | 2021-09-27 12:06 | PCNFU ---
Nutrition Follow-Up Complete: Inadequate oral intake related to covid 19 as evidenced by reported intake of 20% Goal: Meet nutritional needs Patient is progressing towards goal. We will continue current goal. Pt current nutrition is Vital AF 1.2 at 65 ml/hr over 22 hours. Last recorded weight is 80.3 kg, up from 73.7 kg on admit. Bowel Motility:+BM reported 09/27 Labs Reviewed:Glu 162, BUN 33, Alb 2.4,Hct 31.4,Hgb 10.5 Meds Noted:Fentanyl, Versed, Nimbex, Lovenox, Remdesivir, Protonix, Decadron, Levophed, Atrovent, Pepcid Skin: WNL Additional Notes: Patient remains on mechanical vent and tube feedings of Vital AF 1.2 at goal rate of 65 ml/hr over 22 hours providing 1716 kcals/107 gms protein/1160 ml water. Free water flush 30 ml q 4 hours. Agree with diet orders. MOnitoring: Will monitor in ICU rounds and reassessing every Thursday and Thursday.
--- NOTE | 2021-09-27 12:51 | WPDINTPN ---
Progress Note: A&P Assessment and Plan (1) Acute respiratory failure: Code(s): J96.00 - Acute respiratory failure, unspecified whether with hypoxia or hypercapnia Status: Acute Assessment and Plan: Acute hypoxic respiratory failure likely related to COVID pneumonia -patient intubated on 09/25/2021 after of failing BiPAP in being on 100% FiO2, he was also pulling at his BiPAP mask and not keeping it on there by desaturating -chest x-ray and ABGs reviewed, patient currently on peep of 10 and 55% FiO2, wean FiO2 to maintain O2 sats > 92% -continue low tidal volume strategy to avoid volume trauma -continue bronchodilators and Pulmicort -sedated with fentanyl, Versed infusion, patient also on Nimbex for neuromuscular blockade (2) Pneumonia due to 2019-nCoV: Code(s): U07.1 - COVID-19; J12.82 - Pneumonia due to coronavirus disease 2019 Status: Acute Assessment and Plan: Positive COVID pneumonia, under vaccinated -continue , dexamethasone and baricitinib, patient to complete 5 days of remdesivir today, will added an additional 5 days of remdesivir starting 09/28/2021 -inflammatory markers are elevated -continue droplet, airborne and contact isolation/precautions (3) Supraventricular tachycardia: Code(s): I47.1 - Supraventricular tachycardia Status: Acute Assessment and Plan: Patient had an episode of supraventricular tachycardia with heart rates in the 140s in the ER -patient was on amiodarone and was in sinus bradycardia -off amiodarone, patient is in sinus bradycardia (4) Hypotension: Code(s): I95.9 - Hypotension, unspecified Status: Acute Assessment and Plan: Patient was hypotensive on 09/25 morning, received 2 L IV fluid bolus and has pain with improvement in blood pressures -he had also received metoprolol in 09/25 morning and dropped his blood pressures. -continue to closely monitor blood pressure -patient is currently off Levophed since 09/26 -lactic acid is normal -09/25/2021: Urine cultures negative -09/25/2021: Blood cultures negative x2 -patient is not on any antibiotics (5) GERD (gastroesophageal reflux disease): Code(s): K21.9 - Gastro-esophageal reflux disease without esophagitis Status: Acute Assessment and Plan: Continue Protonix (6) DVT prophylaxis: Code(s): Z29.9 - Encounter for prophylactic measures, unspecified Status: Acute Assessment and Plan: Continue Lovenox Additional Plan Nutrition: Tolerating tube feeds Discussed with daughterTawana and updated her with patient's condition plan of care. Code status: Full code Critical care time spent: 33 minutes This dictation may have been done utilizing a voice recognition system. Attempts have been made to correct errors. However, there may be uncorrected grammatical, spelling, and recognition errors present. Due to a high probability of clinically significant, life threatening deterioration, the patient required my highest level of preparedness to intervene emergently and I personally spent this critical care time directly and personally managing the patient. This critical care time included obtaining a history; examining the patient; pulse oximetry; ordering and review of studies; arranging urgent treatment with development of a management plan; evaluation of patient's response to treatment; frequent reassessment; and discussions with other providers. It was exclusive of separately billable procedures and treating other patients and teaching time. Please see Assessment and Plan section and the rest of the note for further information on patient assessment and treatment Subjective Date/time seen: 09/27/21 12:51 Interval history: Reason for consult: Acute respiratory failure due to hypoxia, COVID 19 pneumonia, SVT, under vaccinated Intubated on 09/25/2021 after failing BiPAP 09/27/2021: Patient remains intubated, on CMV mode of ventilation, peep of 10 and 55%
[2021-09-28] VITALS (37 sets, daily range): BP systolic 124–142; BP diastolic 54–68; PULSE 58–82; RESP 22–26; TEMP 36.6–38.4; O2SAT 90–94
[2021-09-28] MEDS: FENTANYL 2,500MCG/NS250ML(*CRX 2,500 MCG/250 ML BAG 20 MCG IV CONT ×2 (00:14→13:00)
[2021-09-28] MEDS: IPRATROPIUM BR 0.02% INH SOLN 0.5 MG/2.5 ML VIAL INHALATION ×4 (02:28→20:57)
[2021-09-28] MEDS: LEVALBUTEROL NEB 1.25 MG/3 ML 0.63 MG INHALATION ×4 (02:28→20:57)
[2021-09-28] MEDS: CENTRAL LINE FLUSH 10 ML IV PUSH ×3 (05:30→21:08)
[2021-09-28 05:37] LABS: pH ABG 7.429 (7.350-7.450)
[2021-09-28 05:38] LABS: Alveolar/Arterial O2 Gradient 280.4 mmHg; Base Excess ABG 3.6 mEq/l (+/-2.0); HCO3 ABG 28.4 mEq/l (22.0-26.0); Oxygen Saturation ABG 92.6 % (95.0-100.0); PCO2 ABG 43.9 mmHg (35.0-45.0); PO2 ABG 62.9 mmHg (80.0-100.0); Total Hemoglobin 11.4 g/dL (12.0-18.0)
[2021-09-28 05:39] LABS: Carboxyhemoglobin 0.2 % THb (0-2.0); Methemoglobin ABG 0.1 %THb (0-1.5); Oxygen Content ABG 14.5 %vol (16.0-22.0); Oxyhemoglobin 90.5 % THb (90.0-100.0); PO2 FiO2 Ratio Arterial Blood 1.14 %; Reduced Hemoglobin 9.2 %THb (0-5.0)
[2021-09-28 05:40] LABS: Device VENTILATOR; Fractional Inspired Oxygen 55 %; Modified Allen's Test Pass; Site Drawn RIGHT RADIAL
[2021-09-28 05:41] LABS: Arterial Blood Gas PEEP 10 cmH2O; Arterial Blood Gas Tidal Volume 400 ml; Arterial Blood Gas Vent Mode CMV; Arterial Blood Gas Ventilator rate 26 /MIN
[2021-09-28 06:00] LABS: Hematocrit 30.6 % (42.0-52.0); Hemoglobin 10.2 g/dL (14.0-18.0); Mean Corpuscular HGB Conc 33.3 g/dl (32-36); Mean Corpuscular Hemoglobin 32.5 pg (26-34); Mean Corpuscular Volume 97.5 fl (80-100); Mean Platelet Volume 10.7 fl (7.4-10.4); Platelet Count Result 281 k/mm3 (150-375); Red Blood Count 3.14 M/mm3 (4.6-6.20); Red Cell Distribution Width 12.1 % (11.5-14.5); White Blood Count 11.4 K/mm3 (4.5-10.0)
[2021-09-28 06:25] LABS: Alanine Aminotransferase 25 U/L (4-50); Albumin Level 2.5 g/dL (3.5-5.1); Alkaline Phosphatase 52 U/L (38-126); Anion Gap -1 mmol/L (8-16); Aspartate Amino Transferase 30 U/L (17-59); Bilirubin,Total 0.5 mg/dL (0.2-1.3); Blood Urea Nitrogen 30 mg/dL (9-20); Calcium 7.9 mg/dL (8.4-10.2); Carbon Dioxide 30 mmol/L (22-30); Chloride 107 mmol/L (98-107); Estimated CRCL calculation 81 ml/min; Estimated Glomerular Filt Rate > 60; Glucose 185 mg/dL (65-110); Magnesium 2.3 mg/dL (1.6-2.3); Phosphorus 1.7 mg/dL (2.5-4.5); Sodium 136 mmol/L (137-145)
[2021-09-28 07:33] LABS: Atypical Lymphocytes Present; Band Neutrophils Percent 4 % (0-6); Lymphocytes Absolute Manual 0.57 K/mm3 (1.1-4.5); Metamyelocytes Percent 1 %; Monocytes Absolute Manual 2.05 K/mm3 (0.1-0.90); Monocytes Percent Manual 18 % (3-9); Neutrophils Absolute Manual 8.66 K/mm3 (1.3-6.7); Neutrophils Percent Manual 72 % (46-73); Platelet Estimate Adequate (Adequate); Total Cells Counted 100
[2021-09-28] MEDS: POTASSIUM/PHOSPHORUS/SODIUM 1.5 GM PACKET 1 PACKET PO (08:35)
[2021-09-28] MEDS: PANTOPRAZOLE SODIUM IV 40 MG VIAL IV PUSH (08:36)
[2021-09-28] MEDS: BARICITINIB 2 MG TABLET 4 MG PO (08:36)
[2021-09-28] MEDS: ENOXAPARIN 40 MG/0.4 ML SYRINGE SUB-Q (08:36)
[2021-09-28] MEDS: ASPIRIN 325 MG TABLET PO (08:36)
[2021-09-28] MEDS: FAMOTIDINE 20 MG TABLET PO ×2 (08:36→21:08)
[2021-09-28] MEDS: MINERAL OIL/WHITE PETROLATUM OINTMENT 1 APPLIC EACH EYE ×2 (08:37→21:08)
[2021-09-28] MEDS: BUDESONIDE RESPULE NEB 0.5 MG/2 ML AMP INHALATION ×2 (08:37→20:57)
[2021-09-28] MEDS: REMDESIVIR 100 MG/NS 250 ML 100 MG/250 ML BAG 250 MG IVPB (09:52)
[2021-09-28] MEDS: CISATRACURIUM BESYLATE 200 MG in DEXTROSE 5% 80 ML 5.54 ML IV CONT (12:59)
[2021-09-28] MEDS: MIDAZOLAM 100MG/NS 100ML(*CRX) 100 MG/100 ML BAG 6 MG IV CONT (13:01)
--- NOTE | 2021-09-28 14:23 | PM.IMPN ---
Progress Note: A&P Assessment and Plan (1) Acute respiratory failure: Code(s): J96.00 - Acute respiratory failure, unspecified whether with hypoxia or hypercapnia Status: Acute Assessment and Plan: Acute hypoxic respiratory failure likely related to COVID pneumonia -patient intubated on 09/25/2021 after of failing BiPAP in being on 100% FiO2, he was also pulling at his BiPAP mask and not keeping it on there by desaturating -chest x-ray and ABGs reviewed, patient currently on peep of 10 and 55% FiO2, wean FiO2 to maintain O2 sats > 92% -continue low tidal volume strategy to avoid volume trauma -continue bronchodilators and Pulmicort -sedated with fentanyl, Versed infusion, patient also on Nimbex for neuromuscular blockade (2) Pneumonia due to 2019-nCoV: Code(s): U07.1 - COVID-19; J12.82 - Pneumonia due to coronavirus disease 2019 Status: Acute Assessment and Plan: Positive COVID pneumonia, under vaccinated -continue , dexamethasone and baricitinib, patient on 10 day planned course of remdesivir -inflammatory markers are elevated -continue droplet, airborne and contact isolation/precautions (3) Supraventricular tachycardia: Code(s): I47.1 - Supraventricular tachycardia Status: Acute Assessment and Plan: Patient had an episode of supraventricular tachycardia with heart rates in the 140s in the ER -patient was on amiodarone and was in sinus bradycardia -off amiodarone, patient is in sinus bradycardia (4) Hypotension: Code(s): I95.9 - Hypotension, unspecified Status: Acute Assessment and Plan: Patient was hypotensive on 09/25 morning, received 2 L IV fluid bolus and has pain with improvement in blood pressures -he had also received metoprolol in 09/25 morning and dropped his blood pressures. -continue to closely monitor blood pressure -patient is currently off Levophed since 09/26 -lactic acid is normal -09/25/2021: Urine cultures negative -09/25/2021: Blood cultures negative x2 -patient is not on any antibiotics (5) GERD (gastroesophageal reflux disease): Code(s): K21.9 - Gastro-esophageal reflux disease without esophagitis Status: Acute Assessment and Plan: Continue Protonix (6) DVT prophylaxis: Code(s): Z29.9 - Encounter for prophylactic measures, unspecified Status: Acute Assessment and Plan: Continue Lovenox Additional Plan Nutrition: Tolerating tube feeds Code status: Full code Subjective Date/time seen: 09/28/21 14:23 Interval history: Follow-up for Acute respiratory failure due to hypoxia, COVID 19 pneumonia, SVT, under vaccinated Intubated on 09/25/2021 after failing BiPAP Patient on Nimbex and sedated on full ventilator support no overnight events reported Review of Systems Review of Systems: ROS unobtainable: Yes unobtainable due to endotracheal tube Exam Narrative: General: Patient is intubated, sedated, in no acute distress HEENT: Pupils equal and reactive, sclera is clear Neck: Neck is supple, no lymphadenopathy or thyromegaly Respiratory: Diffuse coarse breath sounds bilaterally, diminished at bases Cardiac: S1-S2 normal, regular rate and rhythm Abdomen: Soft, nontender, non distended, normoactive bowel sounds Extremities: Pedal pulses are palpable Neuro: Patient is intubated, sedated and paralyzed with Nimbex, does not open his eyes or follow simple commands Skin: Dry and intact Psych: Unable to assess at this time Objective Data Vital Signs Vital Signs: Vital Signs - 24 hr 09/27/21 15:25 09/27/21 15:31 09/27/21 15:34 Temperature Pulse Rate 52 L 52 L 57 L Respiratory Rate 26 H 26 H Blood Pressure Pulse Oximetry 94 09/27/21 16:00 09/27/21 18:00 09/27/21 18:16 Temperature 97.4 F L Pulse Rate 58 L 52 L 52 L Respiratory Rate 26 H 26 H Blood Pressure 130/55 L 128/56 L Pulse Oximetry 93 92 93 09/27/21 20:00 09/27/21 20:01 09/27/21 20:17 Temper
--- NOTE | 2021-09-28 17:03 | WPDINTPN ---
Progress Note: A&P Assessment and Plan (1) Acute respiratory failure: Code(s): J96.00 - Acute respiratory failure, unspecified whether with hypoxia or hypercapnia Status: Acute Assessment and Plan: Acute hypoxic respiratory failure likely related to COVID pneumonia -patient intubated on 09/25/2021 after of failing BiPAP in being on 100% FiO2, he was also pulling at his BiPAP mask and not keeping it on there by desaturating -chest x-ray and ABGs reviewed, patient currently on peep of 10 and 55% FiO2, wean FiO2 to maintain O2 sats > 92% -continue low tidal volume strategy to avoid volume trauma -continue bronchodilators and Pulmicort -sedated with fentanyl, Versed infusion, patient also on Nimbex for neuromuscular blockade (2) Pneumonia due to 2019-nCoV: Code(s): U07.1 - COVID-19; J12.82 - Pneumonia due to coronavirus disease 2019 Status: Acute Assessment and Plan: Positive COVID pneumonia, under vaccinated -continue , dexamethasone and baricitinib, patient to complete 5 days of remdesivir today, will added an additional 5 days of remdesivir starting 09/28/2021 -inflammatory markers are elevated -continue droplet, airborne and contact isolation/precautions (3) Supraventricular tachycardia: Code(s): I47.1 - Supraventricular tachycardia Status: Acute Assessment and Plan: Patient had an episode of supraventricular tachycardia with heart rates in the 140s in the ER -patient was on amiodarone and was in sinus bradycardia -off amiodarone, currently in sinus rhythm, rate controlled (4) Hypotension: Code(s): I95.9 - Hypotension, unspecified Status: Acute Assessment and Plan: Patient was hypotensive on 09/25 morning, received 2 L IV fluid bolus and has pain with improvement in blood pressures -he had also received metoprolol in 09/25 morning and dropped his blood pressures. -continue to closely monitor blood pressure -patient is currently off Levophed since 09/26 -lactic acid is normal -09/25/2021: Urine cultures negative -09/25/2021: Blood cultures negative x2 -patient is not on any antibiotics (5) GERD (gastroesophageal reflux disease): Code(s): K21.9 - Gastro-esophageal reflux disease without esophagitis Status: Acute Assessment and Plan: Continue Protonix (6) DVT prophylaxis: Code(s): Z29.9 - Encounter for prophylactic measures, unspecified Status: Acute Assessment and Plan: Continue Lovenox Additional Plan Nutrition: Tolerating tube feeds Stress ulcer prophylaxis: Protonix 09/28: Discussed with daughterTawana and updated her with patient's condition plan of care. Code status: Full code Critical care time spent: 34 minutes This dictation may have been done utilizing a voice recognition system. Attempts have been made to correct errors. However, there may be uncorrected grammatical, spelling, and recognition errors present. Due to a high probability of clinically significant, life threatening deterioration, the patient required my highest level of preparedness to intervene emergently and I personally spent this critical care time directly and personally managing the patient. This critical care time included obtaining a history; examining the patient; pulse oximetry; ordering and review of studies; arranging urgent treatment with development of a management plan; evaluation of patient's response to treatment; frequent reassessment; and discussions with other providers. It was exclusive of separately billable procedures and treating other patients and teaching time. Please see Assessment and Plan section and the rest of the note for further information on patient assessment and treatment Subjective Date/time seen: 09/28/21 17:03 Interval history: Reason for consult: Acute respiratory failure due to hypoxia, COVID 19 pneumonia, SVT, under vaccinated Intubated on 09/25/2021 after failing BiPAP 09/28/2021: Patient remains [facility]
[2021-09-28] MEDS: METOPROLOL TARTRATE INJ 5 MG/5 ML VIAL IV PUSH (17:31)
[2021-09-28] MEDS: ACETAMINOPHEN 325 MG TABLET 650 MG PO (18:07)
[2021-09-29] VITALS (39 sets, daily range): BP systolic 100–163; BP diastolic 52–80; PULSE 75–156; RESP 26; TEMP 36.9–37.9; O2SAT 85–100
[2021-09-29] MEDS: MIDAZOLAM 100MG/NS 100ML(*CRX) 100 MG/100 ML BAG 6 MG IV CONT (01:33)
[2021-09-29] MEDS: FENTANYL 2,500MCG/NS250ML(*CRX 2,500 MCG/250 ML BAG 20 MCG IV CONT ×2 (01:35→14:05)
[2021-09-29] MEDS: CENTRAL LINE FLUSH 10 ML IV PUSH ×3 (05:00→21:21)
[2021-09-29] MEDS: CISATRACURIUM BESYLATE 200 MG in DEXTROSE 5% 80 ML 5.54 ML IV CONT (05:00)
[2021-09-29] MEDS: METOPROLOL TARTRATE INJ 5 MG/5 ML VIAL IV PUSH ×3 (05:11→23:40)
[2021-09-29 05:23] LABS: Alveolar/Arterial O2 Gradient 439.1 mmHg; Base Excess ABG 3.2 mEq/l (+/-2.0); Carboxyhemoglobin 0.3 % THb (0-2.0); Fractional Inspired Oxygen 80 %; HCO3 ABG 31.7 mEq/l (22.0-26.0); Methemoglobin ABG 0.2 %THb (0-1.5); Oxygen Content ABG 15.9 %vol (16.0-22.0); PO2 ABG 59.9 mmHg (80.0-100.0); PO2 FiO2 Ratio Arterial Blood 0.75 %; Reduced Hemoglobin 12.8 %THb (0-5.0)
[2021-09-29 05:25] LABS: pH ABG 7.287 (7.350-7.450)
[2021-09-29 05:26] LABS: Oxygen Saturation ABG 87.1 % (95.0-100.0)
[2021-09-29 05:27] LABS: Device VENTILATOR; Modified Allen's Test Pass; Oxyhemoglobin 86.7 % THb (90.0-100.0); Site Drawn RIGHT RADIAL
[2021-09-29 05:28] LABS: Arterial Blood Gas PEEP 10 cmH2O; Arterial Blood Gas Vent Mode ASV
[2021-09-29 05:51] LABS: Hematocrit 37.8 % (42.0-52.0); Mean Corpuscular HGB Conc 31.7 g/dl (32-36); Mean Corpuscular Hemoglobin 32.7 pg (26-34); Mean Platelet Volume 10.5 fl (7.4-10.4); Platelet Count Result 283 k/mm3 (150-375); Red Blood Count 3.67 M/mm3 (4.6-6.20); Red Cell Distribution Width 12.5 % (11.5-14.5); White Blood Count 15.7 K/mm3 (4.5-10.0)
[2021-09-29 05:57] LABS: Alanine Aminotransferase 36 U/L (4-50); Albumin Level 2.7 g/dL (3.5-5.1); Alkaline Phosphatase 57 U/L (38-126); Anion Gap 0 mmol/L (8-16); Aspartate Amino Transferase 36 U/L (17-59); Bilirubin,Total 0.8 mg/dL (0.2-1.3); Blood Urea Nitrogen 30 mg/dL (9-20); Calcium 8.1 mg/dL (8.4-10.2); Carbon Dioxide 35 mmol/L (22-30); Chloride 102 mmol/L (98-107); Estimated CRCL calculation 94 ml/min; Estimated Glomerular Filt Rate > 60; Glucose 183 mg/dL (65-110); Magnesium 2.3 mg/dL (1.6-2.3); Phosphorus 3.3 mg/dL (2.5-4.5); Potassium 4.9 mmol/L (3.4-5.0); Sodium 137 mmol/L (137-145)
[2021-09-29 07:52] LABS: Band Neutrophils Percent 4 % (0-6); Lymphocytes Absolute Manual 3.61 K/mm3 (1.1-4.5); Monocytes Absolute Manual 0.62 K/mm3 (0.1-0.90); Monocytes Percent Manual 4 % (3-9); Neutrophils Absolute Manual 11.46 K/mm3 (1.3-6.7); Neutrophils Percent Manual 69 % (46-73); Platelet Estimate Adequate (Adequate); Total Cells Counted 100
[2021-09-29 07:53] LABS: Atypical Lymphocytes Present
[2021-09-29] MEDS: IPRATROPIUM BR 0.02% INH SOLN 0.5 MG/2.5 ML VIAL INHALATION ×3 (08:47→19:43)
[2021-09-29] MEDS: LEVALBUTEROL NEB 1.25 MG/3 ML 0.63 MG INHALATION ×3 (08:47→19:44)
[2021-09-29] MEDS: BUDESONIDE RESPULE NEB 0.5 MG/2 ML AMP INHALATION ×2 (08:47→19:44)
[2021-09-29] MEDS: MINERAL OIL/WHITE PETROLATUM OINTMENT 1 APPLIC EACH EYE ×2 (09:09→21:23)
[2021-09-29] MEDS: FAMOTIDINE 20 MG TABLET PO ×2 (09:09→21:23)
[2021-09-29] MEDS: ASPIRIN 325 MG TABLET PO (09:09)
[2021-09-29] MEDS: ENOXAPARIN 40 MG/0.4 ML SYRINGE SUB-Q (09:09)
[2021-09-29] MEDS: PANTOPRAZOLE SODIUM IV 40 MG VIAL IV PUSH (09:09)
[2021-09-29] MEDS: BARICITINIB 2 MG TABLET 4 MG PO (09:09)
[2021-09-29] MEDS: ACETAMINOPHEN 325 MG TABLET 650 MG PO (09:16)
[2021-09-29] MEDS: REMDESIVIR 100 MG/NS 250 ML 100 MG/250 ML BAG 250 MG IVPB (10:50)
[2021-09-29 12:21] LABS: INR 1.4; Prothrombin Time 16.9 Seconds (11.1-14.7)
--- NOTE | 2021-09-29 13:58 | WPDINTPN ---
Progress Note: A&P Assessment and Plan (1) Acute respiratory failure: Code(s): J96.00 - Acute respiratory failure, unspecified whether with hypoxia or hypercapnia Status: Acute Assessment and Plan: Acute hypoxic respiratory failure likely related to COVID pneumonia -patient intubated on 09/25/2021 after of failing BiPAP in being on 100% FiO2, he was also pulling at his BiPAP mask and not keeping it on there by desaturating - 09/29/2021:chest x-ray Shows persistent prominent bilateral pulmonary infiltrates, pulmonary edema and/or pneumonia - given patient's hypoxia and intermittent tachycardia, 09/29 CTA chest was done which did not show any PE, extensive patchy consolidation of the lower lobes and posterior left upper lobe and lingula, patchy ground-glass infiltrates of the upper lobes and middle lobe. - Peep has been increased to 14, currently on 100% FiO2 - will prone patient for 16-18 hours -continue low tidal volume strategy to avoid volume trauma -continue bronchodilators and Pulmicort -sedated with fentanyl, Versed infusion, patient also on Nimbex for neuromuscular blockade (2) Pneumonia due to 2019-nCoV: Code(s): U07.1 - COVID-19; J12.82 - Pneumonia due to coronavirus disease 2019 Status: Acute Assessment and Plan: Positive COVID pneumonia, under vaccinated -continue , dexamethasone and baricitinib, patient to complete 5 days of remdesivir today, will added an additional 5 days of remdesivir starting 09/28/2021 -inflammatory markers are elevated -continue droplet, airborne and contact isolation/precautions (3) Supraventricular tachycardia: Code(s): I47.1 - Supraventricular tachycardia Status: Acute Assessment and Plan: Patient had an episode of supraventricular tachycardia with heart rates in the 140s in the ER -patient was on amiodarone and was in sinus bradycardia -off amiodarone, currently in sinus rhythm, rate controlled - will increase metoprolol to 25 mg per tube q.12 hours (4) Hypotension: Code(s): I95.9 - Hypotension, unspecified Status: Acute Assessment and Plan: Patient was hypotensive on 09/25 morning, received 2 L IV fluid bolus and has pain with improvement in blood pressures -he had also received metoprolol in 09/25 morning and dropped his blood pressures. -continue to closely monitor blood pressure -patient is currently off Levophed since 09/26 -lactic acid is normal -09/25/2021: Urine cultures negative -09/25/2021: Blood cultures negative x2 - 09/29/2021: CTA chest was done shows bilateral infiltrates. Patient is hypoxic, febrile, worsening WBC count. Panculture has been ordered. patient started on vancomycin and imipenem(09/29) (5) GERD (gastroesophageal reflux disease): Code(s): K21.9 - Gastro-esophageal reflux disease without esophagitis Status: Acute Assessment and Plan: Continue Protonix (6) DVT prophylaxis: Code(s): Z29.9 - Encounter for prophylactic measures, unspecified Status: Acute Assessment and Plan: Continue Lovenox Additional Plan Nutrition: Tolerating tube feeds Stress ulcer prophylaxis: Protonix 09/28: Discussed with daughterTawana and updated her with patient's condition plan of care. Code status: Full code Critical care time spent: 34 minutes This dictation may have been done utilizing a voice recognition system. Attempts have been made to correct errors. However, there may be uncorrected grammatical, spelling, and recognition errors present. Due to a high probability of clinically significant, life threatening deterioration, the patient required my highest level of preparedness to intervene emergently and I personally spent this critical care time directly and personally managing the patient. This critical care time included obtaining a history; examining the patient; pulse oximetry; ordering and review of studies; arranging urgent treatment with development of a manageme
[2021-09-29] MEDS: MIDAZOLAM 100MG/NS 100ML(*CRX) 100 MG/100 ML BAG 8 MG IV CONT (17:48)
[2021-09-29] MEDS: CISATRACURIUM BESYLATE 200 MG in DEXTROSE 5% 80 ML 6.64 ML IV CONT (21:17)
[2021-09-30] VITALS (39 sets, daily range): BP systolic 78–118; BP diastolic 49–71; PULSE 64–131; RESP 26–28; TEMP 35.8–37.9; O2SAT 93–100
[2021-09-30] MEDS: FENTANYL 2,500MCG/NS250ML(*CRX 2,500 MCG/250 ML BAG 20 MCG IV CONT ×2 (02:36→14:36)
[2021-09-30 03:46] LABS: Base Excess ABG 6.8 mEq/l (+/-2.0); Total Hemoglobin 12.8 g/dL (12.0-18.0)
[2021-09-30 03:47] LABS: Carboxyhemoglobin 0.1 % THb (0-2.0); Oxygen Content ABG 17.8 %vol (16.0-22.0)
[2021-09-30 03:48] LABS: Device VENTILATOR; Methemoglobin ABG 0.3 %THb (0-1.5); Modified Allen's Test Pass; PO2 FiO2 Ratio Arterial Blood 1.88 %; Reduced Hemoglobin 1.7 %THb (0-5.0); Site Drawn LEFT RADIAL
[2021-09-30 03:49] LABS: Arterial Blood Gas Vent Mode CMV
[2021-09-30] MEDS: MIDAZOLAM 100MG/NS 100ML(*CRX) 100 MG/100 ML BAG 8 MG IV CONT ×2 (04:25→16:29)
[2021-09-30] MEDS: hetaSTARCH 6%/NACL 500 ML 250 ML IV CONT (04:59)
[2021-09-30 05:15] LABS: Basophils Absolute Auto 0.1 K/mm3 (0.0-0.1); Basophils Percent Auto 0.3 % (0.2-1.2); Hematocrit 34.4 % (42.0-52.0); Hemoglobin 11.1 g/dL (14.0-18.0); Immature Granulocyte Absolute 0.35 K/mm3 (0.00-0.031); Immature Granulocyte Percent A 1.8 % (0-0.5); Lymphocytes Absolute Auto 1.37 K/mm3 (0.9-3.2); Lymphocytes Percent Auto 7.2 % (18.3-44.2); Mean Corpuscular HGB Conc 32.3 g/dl (32-36); Mean Corpuscular Hemoglobin 32.8 pg (26-34); Mean Corpuscular Volume 101.8 fl (80-100); Mean Platelet Volume 10.9 fl (7.4-10.4); Monocytes Absolute Auto 2.2 K/mm3 (0.1-0.6); Monocytes Percent Auto 11.5 % (2.6-8.5); Neutrophils Absolute Auto 15.1 K/mm3 (1.3-6.7); Neutrophils Percent Auto 79.2 % (45.5-73.1); Nucleated Red Blood Cells Absolute Auto 0.1 K/mm3 (0.0-0.012); Nucleated Red Blood Cells Perc 0.4 % (0.0-0.2); Platelet Count Result 230 k/mm3 (150-375); Red Blood Count 3.38 M/mm3 (4.6-6.20); Red Cell Distribution Width 12.4 % (11.5-14.5); White Blood Count 19.1 K/mm3 (4.5-10.0)
[2021-09-30 05:24] LABS: Alanine Aminotransferase 30 U/L (4-50); Albumin Level 2.4 g/dL (3.5-5.1); Alkaline Phosphatase 58 U/L (38-126); Anion Gap 2 mmol/L (8-16); Aspartate Amino Transferase 29 U/L (17-59); Bilirubin,Total 0.7 mg/dL (0.2-1.3); Blood Urea Nitrogen 37 mg/dL (9-20); Carbon Dioxide 34 mmol/L (22-30); Chloride 100 mmol/L (98-107); Estimated CRCL calculation 81 ml/min; Estimated Glomerular Filt Rate > 60; Glucose 140 mg/dL (65-110); INR 1.6; Magnesium 2.6 mg/dL (1.6-2.3); Phosphorus 2.8 mg/dL (2.5-4.5); Potassium 5.6 mmol/L (3.4-5.0); Sodium 136 mmol/L (137-145)
[2021-09-30] MEDS: CENTRAL LINE FLUSH 10 ML IV PUSH ×3 (05:51→19:56)
[2021-09-30] MEDS: SODIUM BICARBONATE 8.4% 50 MEQ/50 ML SYRINGE IV PUSH (08:00)
[2021-09-30] MEDS: DEXTROSE 50% 25 GM/50 ML SYRINGE IV PUSH (08:00)
[2021-09-30] MEDS: INSULIN HUMAN REGULAR (*BKC) 100 UNITS/ML 10 UNITS IV PUSH (08:01)
[2021-09-30] MEDS: SODIUM POLYSTYRENE SULFONONATE 15 GM/60 ML BTL 30 GM PO (08:01)
[2021-09-30] MEDS: BARICITINIB 2 MG TABLET 4 MG PO (08:09)
[2021-09-30] MEDS: ASPIRIN 325 MG TABLET PO (08:09)
[2021-09-30] MEDS: ENOXAPARIN 40 MG/0.4 ML SYRINGE SUB-Q (08:10)
[2021-09-30] MEDS: MINERAL OIL/WHITE PETROLATUM OINTMENT 1 APPLIC EACH EYE ×2 (08:10→19:56)
[2021-09-30] MEDS: FAMOTIDINE 20 MG TABLET PO ×2 (08:10→19:54)
[2021-09-30] MEDS: PANTOPRAZOLE SODIUM IV 40 MG VIAL IV PUSH (08:10)
[2021-09-30 08:19] LABS: Glucose Point of Care 126 mg/dl (65-105)
[2021-09-30] MEDS: BUDESONIDE RESPULE NEB 0.5 MG/2 ML AMP INHALATION ×2 (09:27→21:05)
[2021-09-30] MEDS: ALBUTEROL SULFATE NEB 2.5 MG/0.5 ML INH 10 MG INHALATION (09:28)
[2021-09-30] MEDS: IPRATROPIUM BR 0.02% INH SOLN 0.5 MG/2.5 ML VIAL INHALATION ×3 (09:28→21:05)
[2021-09-30] MEDS: REMDESIVIR 100 MG/NS 250 ML 100 MG/250 ML BAG 250 MG IVPB (10:07)
[2021-09-30] MEDS: CISATRACURIUM BESYLATE 200 MG in DEXTROSE 5% 80 ML 7.75 ML IV CONT ×2 (10:30→23:41)
[2021-09-30] MEDS: METOCLOPRAMIDE HCL INJ 10 MG/2 ML VIAL IV PUSH ×2 (10:34→17:58)
[2021-09-30 10:51] LABS: Anion Gap 4 mmol/L (8-16); Blood Urea Nitrogen 40 mg/dL (9-20); Calcium 7.7 mg/dL (8.4-10.2); Carbon Dioxide 34 mmol/L (22-30); Chloride 101 mmol/L (98-107); Estimated CRCL calculation 72 ml/min; Estimated Glomerular Filt Rate > 60; Glucose 185 mg/dL (65-110); Potassium 4.7 mmol/L (3.4-5.0); Sodium 139 mmol/L (137-145)
--- NOTE | 2021-09-30 12:19 | PCFNICU ---
ICU Rounding Note: Pt current nutrition is vital AF 1.2 running at 65mL/hr - Held. Last recorded weight is 77.9 kg, down from 80.3kg reported 09/27. Bowel Motility: LBM reported 09/27 Labs Reviewed: hgb 11.1, Hct 34.4, Alb 2.4, Na 136, K 5.6, BUN 37, Glu 140 Meds Noted: calcium carbonate, nimbex, decadron, lovenox, pepcid, fentanyl, atrovent, reglan, versed, protonix, remdesivir, vancomycin Skin: WNL Additional Notes: Pt remains on mechanical vent. Tube feeding of Vital AF 1.2 running at 65mL/hr is being held for tolerance. Reglan has been started and tube feeding of Vital AF 1.2 to be reinitiated at 10mL/hr over 22 hours providing 264kcal, 16.5g protein, and 178.42mL water. Recommend increasing rate by 10mL/hr q 4 hours until goal rate of 65mL/hr is reached. Agree with diet orders at this time. Will continue to follow. Following daily in ICU rounds. Monitor and reassessment every T/F.
--- NOTE | 2021-09-30 14:14 | WPDINTPN ---
Progress Note: A&P Assessment and Plan (1) Acute respiratory failure: Code(s): J96.00 - Acute respiratory failure, unspecified whether with hypoxia or hypercapnia Status: Acute Assessment and Plan: Acute hypoxic respiratory failure likely related to COVID pneumonia -patient intubated on 09/25/2021 after of failing BiPAP in being on 100% FiO2, he was also pulling at his BiPAP mask and not keeping it on there by desaturating - 09/29/2021:chest x-ray Shows persistent prominent bilateral pulmonary infiltrates, pulmonary edema and/or pneumonia - given patient's hypoxia and intermittent tachycardia, 09/29 CTA chest was done which did not show any PE, extensive patchy consolidation of the lower lobes and posterior left upper lobe and lingula, patchy ground-glass infiltrates of the upper lobes and middle lobe. -currently on peep of 16, 65% FiO2. ABGs noted, will decrease PEEP to 14 and continue to wean FiO2 to maintain O2 sats greater than 92% - will prone patient for 16-18 hours -continue low tidal volume strategy to avoid volume trauma -continue bronchodilators and Pulmicort -sedated with fentanyl, Versed infusion, patient also on Nimbex for neuromuscular blockade (2) Pneumonia due to 2019-nCoV: Code(s): U07.1 - COVID-19; J12.82 - Pneumonia due to coronavirus disease 2019 Status: Acute Assessment and Plan: Positive COVID pneumonia, under vaccinated -continue , dexamethasone and baricitinib, patient to complete 5 days of remdesivir today, will added an additional 5 days of remdesivir starting 09/28/2021 -inflammatory markers are elevated -continue droplet, airborne and contact isolation/precautions (3) Supraventricular tachycardia: Code(s): I47.1 - Supraventricular tachycardia Status: Acute Assessment and Plan: Patient had an episode of supraventricular tachycardia with heart rates in the 140s in the ER -patient was on amiodarone and was in sinus bradycardia -off amiodarone, currently in sinus rhythm, rate controlled - will increase metoprolol to 25 mg per tube q.12 hours (4) Hypotension: Code(s): I95.9 - Hypotension, unspecified Status: Acute Assessment and Plan: Patient was hypotensive on 09/25 morning, received 2 L IV fluid bolus and has pain with improvement in blood pressures -he had also received metoprolol in 09/25 morning and dropped his blood pressures. -continue to closely monitor blood pressure -patient is currently off Levophed since 09/26 -lactic acid is normal -09/25/2021: Urine cultures negative -09/25/2021: Blood cultures negative x2 - 09/29/2021: CTA chest was done shows bilateral infiltrates. Patient is hypoxic, febrile, worsening WBC count. Panculture has been ordered. patient started on vancomycin and imipenem(09/29) -09/29/2021: Blood cultures growing Gram-positive cocci 2/ bottles -09/29/2020 sputum culture pending (5) GERD (gastroesophageal reflux disease): Code(s): K21.9 - Gastro-esophageal reflux disease without esophagitis Status: Acute Assessment and Plan: Continue Protonix (6) DVT prophylaxis: Code(s): Z29.9 - Encounter for prophylactic measures, unspecified Status: Acute Assessment and Plan: Continue Lovenox Additional Plan Nutrition: Tolerating tube feeds Stress ulcer prophylaxis: Protonix 09/30, discussed with Lori, who is a RN, updated her patient's condition and plan of care. I answered all questions regarding the medications, ventilator settings, convalescent plasma. She is aware that he is critical. Code status: Full code Critical care time spent: 35 minutes This dictation may have been done utilizing a voice recognition system. Attempts have been made to correct errors. However, there may be uncorrected grammatical, spelling, and recognition errors present. Due to a high probability of clinically significant, life threatening deterioration, the patient required my highest level of
[2021-09-30] MEDS: LEVALBUTEROL NEB 1.25 MG/3 ML 0.63 MG INHALATION ×2 (15:12→21:05)
[2021-09-30 23:03] LABS: Vancomycin Trough 9.6 ug/mL (10.0-20.0)
[2021-10-01] VITALS (33 sets, daily range): BP systolic 109–141; BP diastolic 53–64; PULSE 66–76; RESP 26; TEMP 36.4–37.1; O2SAT 91–97
[2021-10-01] MEDS: METOCLOPRAMIDE HCL INJ 10 MG/2 ML VIAL IV PUSH ×5 (00:52→23:47)
[2021-10-01] MEDS: LEVALBUTEROL NEB 1.25 MG/3 ML 0.63 MG INHALATION ×4 (02:17→22:00)
[2021-10-01] MEDS: IPRATROPIUM BR 0.02% INH SOLN 0.5 MG/2.5 ML VIAL INHALATION ×4 (02:18→21:58)
[2021-10-01] MEDS: FENTANYL 2,500MCG/NS250ML(*CRX 2,500 MCG/250 ML BAG 20 MCG IV CONT ×2 (03:58→14:59)
[2021-10-01] MEDS: MIDAZOLAM 100MG/NS 100ML(*CRX) 100 MG/100 ML BAG 8 MG IV CONT ×2 (03:58→15:00)
[2021-10-01 05:43] LABS: Basophils Absolute Auto 0.1 K/mm3 (0.0-0.1); Basophils Percent Auto 0.3 % (0.2-1.2); Hematocrit 29.1 % (42.0-52.0); Hemoglobin 9.5 g/dL (14.0-18.0); Immature Granulocyte Absolute 1.42 K/mm3 (0.00-0.031); Immature Granulocyte Percent A 7.2 % (0-0.5); Lymphocytes Absolute Auto 0.31 K/mm3 (0.9-3.2); Lymphocytes Percent Auto 1.6 % (18.3-44.2); Mean Corpuscular HGB Conc 32.6 g/dl (32-36); Mean Corpuscular Hemoglobin 33.6 pg (26-34); Mean Corpuscular Volume 102.8 fl (80-100); Mean Platelet Volume 10.7 fl (7.4-10.4); Monocytes Absolute Auto 3.2 K/mm3 (0.1-0.6); Monocytes Percent Auto 16.3 % (2.6-8.5); Neutrophils Absolute Auto 14.6 K/mm3 (1.3-6.7); Neutrophils Percent Auto 74.6 % (45.5-73.1); Nucleated Red Blood Cells Perc 0.2 % (0.0-0.2); Platelet Count Result 219 k/mm3 (150-375); Red Blood Count 2.83 M/mm3 (4.6-6.20); Red Cell Distribution Width 12.8 % (11.5-14.5); White Blood Count 19.6 K/mm3 (4.5-10.0)
[2021-10-01] MEDS: CENTRAL LINE FLUSH 10 ML IV PUSH ×3 (05:51→23:19)
[2021-10-01 05:56] LABS: Alanine Aminotransferase 25 U/L (4-50); Albumin Level 2.1 g/dL (3.5-5.1); Alkaline Phosphatase 55 U/L (38-126); Anion Gap -2 mmol/L (8-16); Aspartate Amino Transferase 25 U/L (17-59); Bilirubin,Total 0.4 mg/dL (0.2-1.3); Blood Urea Nitrogen 39 mg/dL (9-20); Calcium 7.7 mg/dL (8.4-10.2); Carbon Dioxide 37 mmol/L (22-30); Chloride 99 mmol/L (98-107); Estimated CRCL calculation 94 ml/min; Estimated Glomerular Filt Rate > 60; Glucose 189 mg/dL (65-110); Magnesium 2.6 mg/dL (1.6-2.3); Potassium 4.9 mmol/L (3.4-5.0); Sodium 134 mmol/L (137-145)
[2021-10-01 07:07] LABS: Alveolar/Arterial O2 Gradient 259.5 mmHg; Base Excess ABG 8.5 mEq/l (+/-2.0); Carboxyhemoglobin 0.6 % THb (0-2.0); Fractional Inspired Oxygen 55 %; HCO3 ABG 34.3 mEq/l (22.0-26.0); Methemoglobin ABG 0.1 %THb (0-1.5); Oxygen Content ABG 16.8 %vol (16.0-22.0); Oxygen Saturation ABG 95.1 % (95.0-100.0); Oxyhemoglobin 93.6 % THb (90.0-100.0); PCO2 ABG 52.5 mmHg (35.0-45.0); PO2 ABG 74.2 mmHg (80.0-100.0); PO2 FiO2 Ratio Arterial Blood 1.35 %; Reduced Hemoglobin 5.7 %THb (0-5.0); Total Hemoglobin 12.7 g/dL (12.0-18.0); pH ABG 7.433 (7.350-7.450)
[2021-10-01 07:15] LABS: Device VENTILATOR; Modified Allen's Test Pass; Site Drawn RIGHT RADIAL
[2021-10-01 07:16] LABS: Arterial Blood Gas PEEP 14 cmH2O; Arterial Blood Gas Tidal Volume 400 ml; Arterial Blood Gas Vent Mode CMV; Arterial Blood Gas Ventilator rate 26 /MIN
[2021-10-01] MEDS: BUDESONIDE RESPULE NEB 0.5 MG/2 ML AMP INHALATION ×3 (09:42→21:59)
[2021-10-01] MEDS: FUROSEMIDE INJ 40 MG/4 ML VIAL IV PUSH (09:43)
[2021-10-01] MEDS: BARICITINIB 2 MG TABLET 4 MG PO (09:43)
[2021-10-01] MEDS: FAMOTIDINE 20 MG TABLET PO (09:43)
[2021-10-01] MEDS: MINERAL OIL/WHITE PETROLATUM OINTMENT 1 APPLIC EACH EYE ×2 (09:43→23:19)
[2021-10-01] MEDS: PANTOPRAZOLE SODIUM IV 40 MG VIAL IV PUSH (09:43)
[2021-10-01] MEDS: ENOXAPARIN 40 MG/0.4 ML SYRINGE SUB-Q (09:43)
[2021-10-01] MEDS: ASPIRIN 325 MG TABLET PO (09:43)
[2021-10-01] MEDS: REMDESIVIR 100 MG/NS 250 ML 100 MG/250 ML BAG 250 MG IVPB (11:27)
[2021-10-01] MEDS: CISATRACURIUM BESYLATE 200 MG in DEXTROSE 5% 80 ML 7.75 ML IV CONT (11:37)
[2021-10-01 11:51] LABS: INR 1.6; Prothrombin Time 18.4 Seconds (11.1-14.7)
--- NOTE | 2021-10-01 12:47 | WPDINTPN ---
Progress Note: A&P Assessment and Plan (1) Acute respiratory failure: Code(s): J96.00 - Acute respiratory failure, unspecified whether with hypoxia or hypercapnia Status: Acute Assessment and Plan: Acute hypoxic respiratory failure likely related to COVID pneumonia -patient intubated on 09/25/2021 after of failing BiPAP in being on 100% FiO2, he was also pulling at his BiPAP mask and not keeping it on there by desaturating - 09/29/2021:chest x-ray Shows persistent prominent bilateral pulmonary infiltrates, pulmonary edema and/or pneumonia - given patient's hypoxia and intermittent tachycardia, 09/29 CTA chest was done which did not show any PE, extensive patchy consolidation of the lower lobes and posterior left upper lobe and lingula, patchy ground-glass infiltrates of the upper lobes and middle lobe. 10/01: Chest x-ray shows stable airspace disease -currently on peep of 14, 55% FiO2. ABGs noted, will decrease PEEP to 12 and continue to wean FiO2 to maintain O2 sats greater than 92% - will prone patient for 16-18 hours -continue low tidal volume strategy to avoid volume trauma -continue bronchodilators and Pulmicort -sedated with fentanyl, Versed infusion, patient also on Nimbex for neuromuscular blockade (2) Pneumonia due to 2019-nCoV: Code(s): U07.1 - COVID-19; J12.82 - Pneumonia due to coronavirus disease 2019 Status: Acute Assessment and Plan: Positive COVID pneumonia, under vaccinated -continue , dexamethasone and baricitinib, patient to complete 5 days of remdesivir today, will added an additional 5 days of remdesivir starting 09/28/2021 -inflammatory markers are elevated -continue droplet, airborne and contact isolation/precautions (3) Supraventricular tachycardia: Code(s): I47.1 - Supraventricular tachycardia Status: Acute Assessment and Plan: Patient had an episode of supraventricular tachycardia with heart rates in the 140s in the ER -patient was on amiodarone and was in sinus bradycardia -off amiodarone, currently in sinus rhythm, rate controlled -continue metoprolol to 25 mg per tube q.12 hours, (4) Hypotension: Code(s): I95.9 - Hypotension, unspecified Status: Acute Assessment and Plan: Patient was hypotensive on 09/25 morning, received 2 L IV fluid bolus and has pain with improvement in blood pressures -he had also received metoprolol in 09/25 morning and dropped his blood pressures. -continue to closely monitor blood pressure -patient is currently off Levophed since 09/26 -lactic acid is normal -09/25/2021: Urine cultures negative -09/25/2021: Blood cultures negative x2 - 09/29/2021: CTA chest was done shows bilateral infiltrates. Patient is hypoxic, febrile, worsening WBC count. Panculture has been ordered. -continue vancomycin and imipenem(09/29) -09/29/2021: Blood cultures growing staph aureus 2/2 bottles, susceptibilities pending -09/29 calm urine cultures pending, -09/29: Sputum cultures is negative (5) GERD (gastroesophageal reflux disease): Code(s): K21.9 - Gastro-esophageal reflux disease without esophagitis Status: Acute Assessment and Plan: Continue Protonix (6) DVT prophylaxis: Code(s): Z29.9 - Encounter for prophylactic measures, unspecified Status: Acute Assessment and Plan: Continue Lovenox Additional Plan Nutrition: Tolerating tube feeds Stress ulcer prophylaxis: Protonix 09/30, discussed with Lori, who is a RN, updated her patient's condition and plan of care. I answered all questions regarding the medications, ventilator settings, convalescent plasma. She is aware that he is critical. Code status: Full code Critical care time spent: 33 minutes This dictation may have been done utilizing a voice recognition system. Attempts have been made to correct errors. However, there may be uncorrected grammatical, spelling, and recognition errors present. Due to a high probability
--- NOTE | 2021-10-01 15:21 | PCNFU ---
Nutrition Follow-Up Complete: Inadequate oral intake related to covid 19 as evidenced by reported intake of 20% Goal: Meet nutritional needs Pt is progressing towards goal. Pt current nutrition is vital AF 1.2 running at 30mL/hr over 22 hours. Last recorded weight is 79.2 kg. Bowel Motility: LBM reported 09/27. No new BM reported Labs Reviewed: hgb 9.5, hct 29.1, alb 2.1, Na 134, Mg 2.6, PO4 2.0, BUN 39, Cr 0.60, Glu 189, Ca 7.7 Meds Noted: olumiant, budesonide, nimbex, lovenox, fentanyl, atrovent, xopenex, reglan, versed, protonix, remdesivir, vancomycin Skin: WNL Additional Notes: ICU nutrition follow up. Pt is remains on mechanical ventilation and tube feeding of vital AF 1.2 running at 30mL/hr over 22 hours providing 792kcal, 50g protein, and 535mL of water. Nursing staff reports that pt is fairly tolerating tube feeding with residuals of 150mL. Pt was started on reglan yesterday (09/30) to aid in tolerating tube feedings. Recommend increasing tube feeding rate by 10mL q 4 hours until goal rate of 65mL is reached. Goal rate of vital AF 1.2 running at 65mL/hr over 22 hours will provide 1716kcal, 107g of protein, and 1160mL of water, meeting 100% of kcal and protein needs. Agree with diet order at this time. Will continue to follow. Will follow daily in ICU rounds. Will monitor every T/F.
[2021-10-02] VITALS (37 sets, daily range): BP systolic 94–129; BP diastolic 39–68; PULSE 57–143; RESP 26–30; TEMP 36.6–37.9; O2SAT 90–96
[2021-10-02] MEDS: FENTANYL 2,500MCG/NS250ML(*CRX 2,500 MCG/250 ML BAG 20 MCG IV CONT ×2 (04:06→16:04)
[2021-10-02] MEDS: MIDAZOLAM 100MG/NS 100ML(*CRX) 100 MG/100 ML BAG 8 MG IV CONT ×2 (04:07→16:05)
[2021-10-02 05:15] LABS: Alveolar/Arterial O2 Gradient 291.3 mmHg; Base Excess ABG 10.4 mEq/l (+/-2.0); Carboxyhemoglobin 0.3 % THb (0-2.0); Fractional Inspired Oxygen 60 %; HCO3 ABG 35.8 mEq/l (22.0-26.0); Methemoglobin ABG 0.3 %THb (0-1.5); Oxygen Content ABG 15.1 %vol (16.0-22.0); Oxygen Saturation ABG 96.1 % (95.0-100.0); Oxyhemoglobin 94.4 % THb (90.0-100.0); PCO2 ABG 51.8 mmHg (35.0-45.0); PO2 ABG 79.5 mmHg (80.0-100.0); PO2 FiO2 Ratio Arterial Blood 1.33 %; Total Hemoglobin 11.3 g/dL (12.0-18.0); pH ABG 7.457 (7.350-7.450)
[2021-10-02 05:16] LABS: Modified Allen's Test Pass; Site Drawn RIGHT RADIAL
[2021-10-02 05:17] LABS: Arterial Blood Gas PEEP 12 cmH2O; Arterial Blood Gas Vent Mode CMV; Arterial Blood Gas Ventilator rate 26 /MIN; Device VENTILATOR; Hemoglobin 10.1 g/dL (14.0-18.0); Mean Corpuscular HGB Conc 32.6 g/dl (32-36); Mean Corpuscular Hemoglobin 33.1 pg (26-34); Mean Corpuscular Volume 101.6 fl (80-100); Mean Platelet Volume 10.8 fl (7.4-10.4); Platelet Count Result 262 k/mm3 (150-375); Red Blood Count 3.05 M/mm3 (4.6-6.20); Red Cell Distribution Width 13.1 % (11.5-14.5); White Blood Count 22.2 K/mm3 (4.5-10.0)
[2021-10-02 05:18] LABS: Arterial Blood Gas Tidal Volume 400 ml
[2021-10-02 05:25] LABS: Alanine Aminotransferase 28 U/L (4-50); Albumin Level 2.2 g/dL (3.5-5.1); Alkaline Phosphatase 63 U/L (38-126); Anion Gap -2 mmol/L (8-16); Aspartate Amino Transferase 30 U/L (17-59); Bilirubin,Total 0.5 mg/dL (0.2-1.3); Blood Urea Nitrogen 39 mg/dL (9-20); Calcium 7.7 mg/dL (8.4-10.2); Carbon Dioxide 38 mmol/L (22-30); Chloride 95 mmol/L (98-107); Estimated CRCL calculation 94 ml/min; Estimated Glomerular Filt Rate > 60; Glucose 217 mg/dL (65-110); Magnesium 2.2 mg/dL (1.6-2.3); Phosphorus 2.9 mg/dL (2.5-4.5); Sodium 131 mmol/L (137-145)
[2021-10-02 05:53] LABS: Band Neutrophils Percent 7 % (0-6); Lymphocytes Absolute Manual 1.55 K/mm3 (1.1-4.5); Monocytes Absolute Manual 2.88 K/mm3 (0.1-0.90); Monocytes Percent Manual 13 % (3-9); Neutrophils Absolute Manual 17.76 K/mm3 (1.3-6.7); Neutrophils Percent Manual 73 % (46-73); Platelet Estimate Adequate (Adequate); Total Cells Counted 100
[2021-10-02 05:54] LABS: Atypical Lymphocytes Present
[2021-10-02] MEDS: METOCLOPRAMIDE HCL INJ 10 MG/2 ML VIAL IV PUSH ×3 (06:05→17:13)
[2021-10-02] MEDS: IPRATROPIUM BR 0.02% INH SOLN 0.5 MG/2.5 ML VIAL INHALATION ×3 (08:35→21:29)
[2021-10-02] MEDS: BUDESONIDE RESPULE NEB 0.5 MG/2 ML AMP INHALATION (08:35)
[2021-10-02] MEDS: LEVALBUTEROL NEB 1.25 MG/3 ML 0.63 MG INHALATION ×3 (08:35→21:28)
[2021-10-02] MEDS: ENOXAPARIN 40 MG/0.4 ML SYRINGE SUB-Q (08:41)
[2021-10-02] MEDS: ASPIRIN 325 MG TABLET PO (08:41)
[2021-10-02] MEDS: polyethylene glycoL 3350 17 GM POWD.PACK PO (08:42)
[2021-10-02] MEDS: PANTOPRAZOLE SODIUM IV 40 MG VIAL IV PUSH (08:42)
[2021-10-02] MEDS: MINERAL OIL/WHITE PETROLATUM OINTMENT 1 APPLIC EACH EYE ×2 (08:42→23:30)
[2021-10-02] MEDS: BARICITINIB 2 MG TABLET 4 MG PO (08:42)
[2021-10-02] MEDS: METOPROLOL TARTRATE INJ 5 MG/5 ML VIAL IV PUSH (09:07)
[2021-10-02] MEDS: CENTRAL LINE FLUSH 10 ML IV PUSH ×3 (09:08→23:30)
--- NOTE | 2021-10-02 10:48 | WPDCDIQUERY2 ---
CDI Query Clarification Request 09/25/2021 Blood cultures negative x2 09/29/2021: CTA chest was done shows bilateral infiltrates. Patient is hypoxic, febrile, worsening WBC count. 09/29/2021: Blood cultures growing Gram-positive cocci 2/2 bottles 09/29/2021: Urine culture growing >100,000 coag neg staph, not saprophyti and enterococcus species Patient started on vancomycin and imipenem(09/29) Please clarify clinical significance of positive blood and urine cultures, if known. <Dyana Izaguirre, [employer]CHITECT - Last Filed: 10/02/21 10:52>
[2021-10-02 11:12] LABS: INR 1.4; Prothrombin Time 16.7 Seconds (11.1-14.7)
[2021-10-02 11:16] LABS: Vancomycin Trough 11.7 ug/mL (10.0-20.0)
[2021-10-02] MEDS: REMDESIVIR 100 MG/NS 250 ML 100 MG/250 ML BAG 250 MG IVPB (11:27)
[2021-10-02] MEDS: CISATRACURIUM BESYLATE 200 MG in DEXTROSE 5% 80 ML 7.75 ML IV CONT ×2 (13:36→21:12)
--- NOTE | 2021-10-02 15:39 | WPDINTPN ---
Progress Note: A&P Assessment and Plan (1) Acute respiratory failure: Code(s): J96.00 - Acute respiratory failure, unspecified whether with hypoxia or hypercapnia Status: Acute Assessment and Plan: Acute hypoxic respiratory failure likely related to COVID pneumonia -patient intubated on 09/25/2021 after of failing BiPAP in being on 100% FiO2, he was also pulling at his BiPAP mask and not keeping it on there by desaturating - 09/29/2021:chest x-ray Shows persistent prominent bilateral pulmonary infiltrates, pulmonary edema and/or pneumonia - given patient's hypoxia and intermittent tachycardia, 09/29 CTA chest was done which did not show any PE, extensive patchy consolidation of the lower lobes and posterior left upper lobe and lingula, patchy ground-glass infiltrates of the upper lobes and middle lobe. 10/02: Stable, diffuse COVID pneumonia -patient did desaturated this morning, was immediately bagged, there was a malfunction of the ventilator which was addressed. -currently on peep of 12 and 60% FiO2. ABGs noted, continue to wean FiO2 to maintain O2 sats greater than 92% - will prone patient for 16-18 hours -continue low tidal volume strategy to avoid volume trauma -continue bronchodilators and Pulmicort -sedated with fentanyl, Versed infusion, patient also on Nimbex for neuromuscular blockade (2) Pneumonia due to 2019-nCoV: Code(s): U07.1 - COVID-19; J12.82 - Pneumonia due to coronavirus disease 2019 Status: Acute Assessment and Plan: Positive COVID pneumonia, under vaccinated -patient has completed course of dexamethasone -also completed 10 days of remdesivir -continue baricitinib -continue droplet, airborne and contact isolation/precautions (3) Supraventricular tachycardia: Code(s): I47.1 - Supraventricular tachycardia Status: Acute Assessment and Plan: Patient had an episode of supraventricular tachycardia with heart rates in the 140s in the ER -patient was on amiodarone and was in sinus bradycardia -off amiodarone, currently in sinus rhythm, rate controlled -continue metoprolol to 25 mg per tube q.12 hours, (4) GERD (gastroesophageal reflux disease): Code(s): K21.9 - Gastro-esophageal reflux disease without esophagitis Status: Acute Assessment and Plan: Continue Protonix (5) DVT prophylaxis: Code(s): Z29.9 - Encounter for prophylactic measures, unspecified Status: Acute Assessment and Plan: Continue Lovenox (6) Sepsis: Code(s): A41.9 - Sepsis, unspecified organism Status: Acute Assessment and Plan: Patient was hypotensive on 09/25 morning, received 2 L IV fluid bolus and has pain with improvement in blood pressures -he had also received metoprolol in 09/25 morning and dropped his blood pressures. -continue to closely monitor blood pressure -patient is currently off Levophed since 09/26 -lactic acid is normal -09/25/2021: Urine cultures negative -09/25/2021: Blood cultures negative x2 - 09/29/2021: CTA chest was done shows bilateral infiltrates. Patient is hypoxic, febrile, worsening WBC count. Panculture has been ordered. -continue vancomycin and imipenem(09/29) -09/29/2021: Blood cultures growing staph aureus 2/2 bottles, is pansensitive -09/29: Urine cultures growing Enterococcus species, -09/29: Sputum cultures is negative Additional Plan Nutrition: Tolerating tube feeds Stress ulcer prophylaxis: Protonix 09/30, discussed with Lori, who is a RN, updated her patient's condition and plan of care. I answered all questions regarding the medications, ventilator settings, convalescent plasma. She is aware that he is critical. Code status: Full code Critical care time spent: 34 minutes This dictation may have been done utilizing a voice recognition system. Attempts have been made to correct errors. However, there may be uncorrected grammatical, spelling, and recognition errors present. Due to a
--- NOTE | 2021-10-02 17:27 | PCFNICU ---
ICU Rounding Note: Pt current nutrition is Vital AF 1.2 running at 60mL/hr over 22 hours. Last recorded weight is 79.2 kg. Bowel Motility: No new BM reported Labs Reviewed: hgb 10.1, hct 31.0, alb 2.2, Na 131, Cl 95, CO2 38, BUN 38, Cr 0.60, Glu 217 Meds Noted: nimbex, lovenox, fentanyl, reglan, lopressor, versed, protonix, miralax Skin: WNL Additional Notes: Pt remains on mechanical ventilation and tube feeding of Vital AF 1.2 running at 60mL/hr over 22 hours providing 1716kcal, 107g protein, and 1071mL of water. Per EMR, pt it fairly tolerating tube feeding. Agree with diet order at this time. Will continue to follow. Following daily in ICU rounds. Will monitor pt every T/F.
[2021-10-03] VITALS (46 sets, daily range): BP systolic 92–140; BP diastolic 41–64; PULSE 72–153; RESP 26; TEMP 37.3–39.2; O2SAT 63–100
--- NOTE | 2021-10-03 | ECHOL_ITS ---
Patient Info Name: Tho Moreno Age: 66 years : 1955 Gender: Male Ht: 67 in Wt: 174 lbs BSA: 1.95 m2 HR: 80 bpm BP: 126 / 49 mmHg Exam Date: 10/03/2021 9:15 AM Exam Location: [facility] Patient Status: Inpatient Admit Date: 09/23/2021 Staff Ordering Physician: Nancy Ozuna MD Tile Ditcher: Walter Parisi, ERIKA, RT Attending Provider: Crow Wilkins MD Referring Physician: Sulma HERNANDEZ; Exam Type: CA echo limited Study Info Indications R65.20 - Severe sepsis without septic shock Limited two-dimensional transthoracic echocardiogram is performed. Summary 1. Left ventricular systolic function is normal, estimated at 60-65%. 2. No evidence endocarditis. Left Ventricle Left ventricular systolic function is normal, estimated at 60-65%. Right Ventricle Right ventricular chamber dimension is normal. Right ventricular systolic function is normal. Left Atria Left atrial chamber dimension is normal. Right Atria Right atrial chamber dimension is normal. Aortic Valve The aortic valve is trileaflet. There is mild aortic valve sclerosis. There is no aortic valve stenosis. There is mild aortic valve regurgitation. Pulmonic Valve The pulmonic valve is not well visualized. Mitral Valve The mitral valve has normal leaflets. Tricuspid Valve The tricuspid valve leaflets are normal. Pericardium/Pleural There is trivial pericardial effusion. Aorta The aortic root size at the sinus of Valsalva is normal. Report Signatures
[2021-10-03] MEDS: ACETAMINOPHEN 325 MG TABLET 650 MG PO ×2 (00:03→17:04)
[2021-10-03] MEDS: METOCLOPRAMIDE HCL INJ 10 MG/2 ML VIAL IV PUSH ×5 (00:04→23:09)
[2021-10-03] MEDS: CISATRACURIUM BESYLATE 200 MG in DEXTROSE 5% 80 ML 7.75 ML IV CONT (01:05)
[2021-10-03] MEDS: METOPROLOL TARTRATE INJ 5 MG/5 ML VIAL IV PUSH ×5 (01:14→21:18)
[2021-10-03] MEDS: LEVALBUTEROL NEB 1.25 MG/3 ML 0.63 MG INHALATION ×4 (02:13→20:42)
[2021-10-03] MEDS: IPRATROPIUM BR 0.02% INH SOLN 0.5 MG/2.5 ML VIAL INHALATION ×4 (02:13→20:42)
[2021-10-03] MEDS: MIDAZOLAM 100MG/NS 100ML(*CRX) 100 MG/100 ML BAG 8 MG IV CONT ×2 (04:25→16:54)
[2021-10-03] MEDS: FENTANYL 2,500MCG/NS250ML(*CRX 2,500 MCG/250 ML BAG 20 MCG IV CONT ×2 (04:25→16:53)
[2021-10-03 05:22] LABS: Hematocrit 35.5 % (42.0-52.0); Hemoglobin 11.2 g/dL (14.0-18.0); Mean Corpuscular HGB Conc 31.5 g/dl (32-36); Mean Corpuscular Hemoglobin 32.7 pg (26-34); Mean Corpuscular Volume 103.8 fl (80-100); Mean Platelet Volume 10.4 fl (7.4-10.4); Platelet Count Result 290 k/mm3 (150-375); Red Blood Count 3.42 M/mm3 (4.6-6.20); White Blood Count 30.8 K/mm3 (4.5-10.0)
[2021-10-03 05:23] LABS: Alveolar/Arterial O2 Gradient 343.2 mmHg; Base Excess ABG 9.5 mEq/l (+/-2.0); Carboxyhemoglobin 0.3 % THb (0-2.0); Fractional Inspired Oxygen 70 %; HCO3 ABG 36.8 mEq/l (22.0-26.0); Methemoglobin ABG 0.3 %THb (0-1.5); Oxygen Content ABG 16.5 %vol (16.0-22.0); Oxygen Saturation ABG 96.2 % (95.0-100.0); Oxyhemoglobin 94.8 % THb (90.0-100.0); PO2 ABG 87.4 mmHg (80.0-100.0); PO2 FiO2 Ratio Arterial Blood 1.25 %; Reduced Hemoglobin 4.6 %THb (0-5.0); Total Hemoglobin 12.3 g/dL (12.0-18.0)
[2021-10-03 05:24] LABS: Modified Allen's Test Pass; PCO2 ABG 63.7 mmHg (35.0-45.0); Site Drawn RIGHT RADIAL
[2021-10-03 05:25] LABS: Arterial Blood Gas PEEP 12 cmH2O; Arterial Blood Gas Tidal Volume 400 ml; Arterial Blood Gas Vent Mode CMV; Arterial Blood Gas Ventilator rate 26 /MIN; Device VENTILATOR
[2021-10-03 05:29] LABS: Alanine Aminotransferase 36 U/L (4-50); Albumin Level 2.3 g/dL (3.5-5.1); Alkaline Phosphatase 67 U/L (38-126); Anion Gap 3 mmol/L (8-16); Aspartate Amino Transferase 44 U/L (17-59); Bilirubin,Total 0.7 mg/dL (0.2-1.3); Blood Urea Nitrogen 39 mg/dL (9-20); Calcium 7.6 mg/dL (8.4-10.2); Carbon Dioxide 38 mmol/L (22-30); Chloride 92 mmol/L (98-107); Estimated CRCL calculation 81 ml/min; Estimated Glomerular Filt Rate > 60; Glucose 130 mg/dL (65-110); Magnesium 2.1 mg/dL (1.6-2.3); Phosphorus 3.6 mg/dL (2.5-4.5); Potassium 5.3 mmol/L (3.4-5.0); Sodium 133 mmol/L (137-145)
[2021-10-03 05:55] LABS: Band Neutrophils Percent 6 % (0-6); Hypochromasia 1+ (NORMAL); Lymphocytes Absolute Manual 1.23 K/mm3 (1.1-4.5); Metamyelocytes Percent 7 %; Monocytes Absolute Manual 3.08 K/mm3 (0.1-0.90); Monocytes Percent Manual 10 % (3-9); Neutrophils Absolute Manual 24.33 K/mm3 (1.3-6.7); Neutrophils Percent Manual 73 % (46-73); Platelet Estimate Adequate (Adequate); Total Cells Counted 100
[2021-10-03] MEDS: CENTRAL LINE FLUSH 10 ML IV PUSH ×3 (05:59→21:19)
[2021-10-03] MEDS: polyethylene glycoL 3350 17 GM POWD.PACK PO (08:37)
[2021-10-03] MEDS: BARICITINIB 2 MG TABLET 4 MG PO (08:37)
[2021-10-03] MEDS: ENOXAPARIN 40 MG/0.4 ML SYRINGE SUB-Q (08:37)
[2021-10-03] MEDS: ASPIRIN 325 MG TABLET PO (08:37)
[2021-10-03] MEDS: PANTOPRAZOLE SODIUM IV 40 MG VIAL IV PUSH (08:37)
[2021-10-03] MEDS: MINERAL OIL/WHITE PETROLATUM OINTMENT 1 APPLIC EACH EYE ×2 (08:38→21:19)
[2021-10-03] MEDS: BUDESONIDE RESPULE NEB 0.5 MG/2 ML AMP INHALATION ×2 (08:48→20:42)
[2021-10-03 12:15] LABS: Glucose Point of Care 123 mg/dl (65-105)
--- NOTE | 2021-10-03 13:02 | WPDINTPN ---
Progress Note: A&P Assessment and Plan (1) Acute respiratory failure: Code(s): J96.00 - Acute respiratory failure, unspecified whether with hypoxia or hypercapnia Status: Acute Assessment and Plan: Acute hypoxic respiratory failure likely related to COVID pneumonia -patient intubated on 09/25/2021 after of failing BiPAP in being on 100% FiO2, he was also pulling at his BiPAP mask and not keeping it on there by desaturating - 09/29/2021:chest x-ray Shows persistent prominent bilateral pulmonary infiltrates, pulmonary edema and/or pneumonia - given patient's hypoxia and intermittent tachycardia, 09/29 CTA chest was done which did not show any PE, extensive patchy consolidation of the lower lobes and posterior left upper lobe and lingula, patchy ground-glass infiltrates of the upper lobes and middle lobe. 10/03: Stable, diffuse COVID pneumonia -currently on peep of 12 and 60% FiO2. ABGs noted, continue to wean FiO2 to maintain O2 sats greater than 92% - will prone patient for 16-18 hours -continue low tidal volume strategy to avoid volume trauma -continue bronchodilators and Pulmicort -sedated with fentanyl, Versed infusion, patient also on Nimbex for neuromuscular blockade (2) Pneumonia due to 2019-nCoV: Code(s): U07.1 - COVID-19; J12.82 - Pneumonia due to coronavirus disease 2019 Status: Acute Assessment and Plan: Positive COVID pneumonia, under vaccinated -patient has completed course of dexamethasone -also completed 10 days of remdesivir -continue baricitinib -continue droplet, airborne and contact isolation/precautions (3) Supraventricular tachycardia: Code(s): I47.1 - Supraventricular tachycardia Status: Acute Assessment and Plan: Patient had an episode of supraventricular tachycardia with heart rates in the 140s in the ER -patient was on amiodarone and was in sinus bradycardia -off amiodarone, currently in sinus rhythm, rate controlled -continue metoprolol to 25 mg per tube q.12 hours, (4) GERD (gastroesophageal reflux disease): Code(s): K21.9 - Gastro-esophageal reflux disease without esophagitis Status: Acute Assessment and Plan: Continue Protonix (5) DVT prophylaxis: Code(s): Z29.9 - Encounter for prophylactic measures, unspecified Status: Acute Assessment and Plan: Continue Lovenox (6) Sepsis: Code(s): A41.9 - Sepsis, unspecified organism Status: Acute Assessment and Plan: Patient was hypotensive on 09/25 morning, received 2 L IV fluid bolus and has pain with improvement in blood pressures -he had also received metoprolol in 09/25 morning and dropped his blood pressures. -continue to closely monitor blood pressure -patient is currently off Levophed since 09/26 -lactic acid is normal -09/25/2021: Urine cultures negative -09/25/2021: Blood cultures negative x2 - 09/29/2021: CTA chest was done shows bilateral infiltrates. Patient is hypoxic, febrile, worsening WBC count. Panculture has been ordered. -continue vancomycin and imipenem(09/29) -09/29/2021: Blood cultures growing staph aureus 11/06 bottles, is pansensitive -09/29: Urine cultures growing Enterococcus species, -09/29: Sputum cultures is negative 10/03/2021: Echocardiogram LVEF 60-65%, no evidence of endocarditis 10/03: Will repeat blood cultures, urine cultures and sputum culture Additional Plan Nutrition: Tolerating tube feeds Stress ulcer prophylaxis: Protonix Code status: Full code Critical care time spent: 33 minutes This dictation may have been done utilizing a voice recognition system. Attempts have been made to correct errors. However, there may be uncorrected grammatical, spelling, and recognition errors present. Due to a high probability of clinically significant, life threatening deterioration, the patient required my highest level of preparedness to intervene emergently and I personally spent this critical care time direct
--- NOTE | 2021-10-03 13:11 | PCFNICU ---
ICU Rounding Note: Pt current nutrition is Vital AF 1.2 running at 65mL/hr over 22 hours Last recorded weight is 79.2 kg. Bowel Motility: +BM 10/03 Labs Reviewed: hgb 11.2, hct 35.5, Alb 2.3, Na 133, K 5.3, CO2 38, BUN 39, Cl 92, Clu 130, Ca 7.6 Meds Noted: olumiant, budesonide, nimbex, lovenox, fentanyl, primaxin, atrovvent, xopenex, reglan, lopressor, versed, miralax, vancomycin Skin: WNL Additional Notes: Pt remains on mechanical ventilation and tube feeding of Vital AF 1.2 running at 65mL/hr over 22 hours providing 1716kcal, 107g of protein, and 1160mL of water, meeting 96% of kcal needs and 100% of protein needs. Nursing staff reports that pt is poorly tolerating tube feeding and rate as evidenced by overnight (10/02/30) residuals of 500mL. Reglan was started 09/30/21. Per EMR, residuals today (10/03/21) range from 0 to 160mL. Agree with diet order at this time. Will continue to follow. Following daily in ICU rounds. Will monitor every T/F.
[2021-10-03] MEDS: CISATRACURIUM BESYLATE 200 MG in DEXTROSE 5% 80 ML 6.64 ML IV CONT (14:33)
[2021-10-04] VITALS (37 sets, daily range): BP systolic 92–131; BP diastolic 48–70; PULSE 73–174; RESP 26–30; TEMP 36.8–38.1; O2SAT 88–99
[2021-10-04] MEDS: CISATRACURIUM BESYLATE 200 MG in DEXTROSE 5% 80 ML 7.75 ML IV CONT ×2 (02:18→14:00)
[2021-10-04] MEDS: LEVALBUTEROL NEB 1.25 MG/3 ML 0.63 MG INHALATION ×4 (02:30→20:30)
[2021-10-04] MEDS: IPRATROPIUM BR 0.02% INH SOLN 0.5 MG/2.5 ML VIAL INHALATION ×4 (02:30→20:30)
[2021-10-04 03:54] LABS: Alveolar/Arterial O2 Gradient 332.8 mmHg; Base Excess ABG 7.6 mEq/l (+/-2.0); Device VENTILATOR; Fractional Inspired Oxygen 70 %; HCO3 ABG 34.4 mEq/l (22.0-26.0); Methemoglobin ABG 0.4 %THb (0-1.5); Modified Allen's Test Pass; Oxygen Content ABG 15.9 %vol (16.0-22.0); Oxygen Saturation ABG 97.4 % (95.0-100.0); Oxyhemoglobin 96.6 % THb (90.0-100.0); PCO2 ABG 59.7 mmHg (35.0-45.0); PO2 ABG 102.1 mmHg (80.0-100.0); PO2 FiO2 Ratio Arterial Blood 1.46 %; Site Drawn RIGHT RADIAL; Total Hemoglobin 11.6 g/dL (12.0-18.0); pH ABG 7.378 (7.350-7.450)
[2021-10-04 03:55] LABS: Arterial Blood Gas PEEP 12 cmH2O; Arterial Blood Gas Tidal Volume 400 ml; Arterial Blood Gas Vent Mode CMV; Arterial Blood Gas Ventilator rate 26 /MIN
[2021-10-04 04:17] LABS: Hemoglobin 10.5 g/dL (14.0-18.0); Mean Corpuscular HGB Conc 31.8 g/dl (32-36); Mean Corpuscular Hemoglobin 33.2 pg (26-34); Mean Corpuscular Volume 104.4 fl (80-100); Mean Platelet Volume 10.5 fl (7.4-10.4); Platelet Count Result 211 k/mm3 (150-375); Red Blood Count 3.16 M/mm3 (4.6-6.20); Red Cell Distribution Width 13.1 % (11.5-14.5); White Blood Count 37.1 K/mm3 (4.5-10.0)
[2021-10-04 04:31] LABS: Alanine Aminotransferase 36 U/L (4-50); Alkaline Phosphatase 81 U/L (38-126); Anion Gap 3 mmol/L (8-16); Aspartate Amino Transferase 39 U/L (17-59); Bilirubin,Total 0.6 mg/dL (0.2-1.3); Blood Urea Nitrogen 35 mg/dL (9-20); Calcium 7.3 mg/dL (8.4-10.2); Carbon Dioxide 33 mmol/L (22-30); Chloride 90 mmol/L (98-107); Estimated CRCL calculation 94 ml/min; Estimated Glomerular Filt Rate > 60; Glucose 215 mg/dL (65-110); Magnesium 2.1 mg/dL (1.6-2.3); Phosphorus 3.6 mg/dL (2.5-4.5); Potassium 5.4 mmol/L (3.4-5.0); Sodium 126 mmol/L (137-145)
[2021-10-04] MEDS: FENTANYL 2,500MCG/NS250ML(*CRX 2,500 MCG/250 ML BAG 20 MCG IV CONT ×2 (04:42→17:56)
[2021-10-04] MEDS: MIDAZOLAM 100MG/NS 100ML(*CRX) 100 MG/100 ML BAG 8 MG IV CONT ×2 (04:44→17:58)
[2021-10-04 04:48] LABS: Band Neutrophils Percent 7 % (0-6); Lymphocytes Absolute Manual 1.85 K/mm3 (1.1-4.5); Monocytes Absolute Manual 3.33 K/mm3 (0.1-0.90); Monocytes Percent Manual 9 % (3-9); Neutrophils Percent Manual 79 % (46-73); Platelet Estimate Adequate (Adequate); Total Cells Counted 100
[2021-10-04] MEDS: METOCLOPRAMIDE HCL INJ 10 MG/2 ML VIAL IV PUSH ×3 (04:54→18:00)
[2021-10-04] MEDS: CENTRAL LINE FLUSH 10 ML IV PUSH ×2 (04:55→14:37)
[2021-10-04] MEDS: PANTOPRAZOLE SODIUM IV 40 MG VIAL IV PUSH (08:11)
[2021-10-04] MEDS: ENOXAPARIN 40 MG/0.4 ML SYRINGE SUB-Q (08:11)
[2021-10-04] MEDS: BARICITINIB 2 MG TABLET 4 MG PO (08:11)
[2021-10-04] MEDS: ASPIRIN 325 MG TABLET PO (08:11)
[2021-10-04] MEDS: polyethylene glycoL 3350 17 GM POWD.PACK PO (08:11)
[2021-10-04] MEDS: MINERAL OIL/WHITE PETROLATUM OINTMENT 1 APPLIC EACH EYE (08:12)
[2021-10-04] MEDS: BUDESONIDE RESPULE NEB 0.5 MG/2 ML AMP INHALATION ×2 (08:57→20:30)
[2021-10-04] MEDS: ALBUTEROL SULFATE NEB 2.5 MG/0.5 ML INH 10 MG INHALATION (09:03)
[2021-10-04] MEDS: INSULIN HUMAN REGULAR (*BKC) 100 UNITS/ML 10 UNITS IV PUSH (09:17)
[2021-10-04] MEDS: SODIUM POLYSTYRENE SULFONONATE 15 GM/60 ML BTL 30 GM PO (09:17)
[2021-10-04] MEDS: DEXTROSE 50% 25 GM/50 ML SYRINGE IV PUSH (09:17)
[2021-10-04] MEDS: METOPROLOL TARTRATE INJ 5 MG/5 ML VIAL IV PUSH ×2 (10:37→11:33)
--- NOTE | 2021-10-04 13:07 | PM.CNPUL ---
Assessment and Plan Assessment and plan (1) Cavitary lesion of lung: Code(s): J98.4 - Other disorders of lung Status: Acute Assessment and Plan: Patient with severe COVID pneumonia with Staph bacteremia, Staph and Enterococcus in his urine and now with a development of new multifocal cavitary lung lesions on his CT scan from 10/04/2021 compared to 09/29/2021. Patient has an echocardiogram that is negative for evidence of endocarditis. Patient remains febrile with a leukocytosis of 37.1 while on vancomycin and imipenem from 09/29. Repeat blood, urine and sputum cultures are pending. Patient has been Immunocompromised with COVID pneumonia, dexamethasone and baracitinib (day 12). At this time I feel the risks of baracitinib outweigh the benefits and I would discontinue this medication. Patient is currently off dexamethasone. At this time I would continue vancomycin for likely staphylococcal related cavitary pneumonia. Patient with continued fever and leukocytosis despite being on imipenem and it is possible that he could have a resistant gram-negative organism and at this time I would add Levaquin. Fungal infection is also possible and given the severity of his disease I recommend an emperic trial of micafungin. Discussed with Dr. Ozuna Inpatient Pulmonary Services will resume on 10/07/2021. Call with questions. ro function At this History of Present Illness History of Present Illness Consult date: 10/04/21 Requesting physician: Nancy Ozuna MD Reason for consult: abnormal CXR/CT Chief complaint: Covid pneumonia Narrative: 10/04/2021: This is a new pulmonary consult for cavitary lung disease. 66-year-old man with a history of hypertension, SVT, BPH, GERD and anxiet presented to the hospital on 09/23/21 with shortness of breath and found to have severe COVID pneumonia. Patient was intubated on 09/25 after failing BiPAP and was in multi-system organ failure with shock requiring Levophed. patient was treated with Remdesivir, dexamethasone, baricitinib, sedation, paralytics, and prone ventilation. initial CT angiogram on 09/29 demonstrated no pulmonary embolism but extensive bilateral patchy infiltrates consistent with COVID pneumonia. blood cultures on 09/25 were negative. Blood cultures on 09/29 demonstrated pansensitive Staph low coccus aureus in 2 of 2 cultures. Patient had a urine culture on 09/29 which grew out Diaz sensitive coag-negative staph low coccus and Enterococcus sensitive to ampicillin, vancomycin and nitrofurantoin. Patient was started on vancomycin and imipenem on 09/29 but despite this has continued fevers and increasing leukocytosis. CT scan of chest abdomen and pelvis on 1230 demonstrated worsening diffuse lung disease with new cavitation in the right upper lobe and both lower lobes compared with 09/29/2021. 10/04 patient remains intubated, sedated with Versed and fentanyl and paralyzed. Currently patient is on CMV with a respiratory rate of 26, tidal volume 400, peep 12, FiO2 100%, peak airway pressure 29, minute ventilation 9.5 with saturations 98%. Blood gas this morning was 7.38/60/102. his white count is 37.1, T max on 10/02 was 37.9. T-max on 10/03 was 39.2. And T-max so far today is 37.5. blood cultures from 10/03, urine culture from 10/03 and sputum culture from 10/04 are pending. DATA: EXAMINATION: CT chest abdomen pelvis wo con DATE: 10/04/2021 11:15 INDICATION: Respiratory failure. TECHNIQUE: Computed tomography (CT) of the chest, abdomen, and pelvis was performed without intravenous contrast. Automated exposure control and iterative reconstruction technique were employed. The dose-length product was 1207.04 mGy-cm. COMPARISON: Chest CT 09/29/2021 FINDINGS: CHEST CT: There are extensive airspace opacities with air bronchograms in all lobes in the dependent portions of the lungs. There are areas of new cavita
--- NOTE | 2021-10-04 13:40 | WPDINTPN ---
Progress Note: A&P Assessment and Plan (1) Sepsis: Code(s): A41.9 - Sepsis, unspecified organism Status: Acute Assessment and Plan: Patient growing staph aureus bacteremia on blood cultures from 09/29. Chest pansensitive -urine cultures growing Enterococcus species on 09/29 -continue vancomycin and imipenem(09/29) 10/04: WBC count trending up, patient is febrile 10/04/2021 CT scan of the chest abdomen and pelvis: Worsened diffuse lung disease including areas of new cavitation in the lower lobes and right upper lobe, likely a combination of necrotizing bacterial pneumonia and COVID-[address] Childers, Pulmonologiist, given patient's CT findings, will add levofloxacin, micafungin (10/04) as his white count is elevated and is febrile. Also stop his baricitinib (he has received 12 doses already) 10/03/2021: Echocardiogram LVEF 60-65%, no evidence of endocarditis 10/03: blood cultures, urine cultures and sputum culture, have been repeated and await results (2) Acute respiratory failure: Code(s): J96.00 - Acute respiratory failure, unspecified whether with hypoxia or hypercapnia Status: Acute Assessment and Plan: Acute hypoxic respiratory failure likely related to COVID pneumonia -patient intubated on 09/25/2021 after of failing BiPAP in being on 100% FiO2, he was also pulling at his BiPAP mask and not keeping it on there by desaturating Chest x-ray this morning Stable, diffuse COVID pneumonia sees, CT chest 10/04, report as above -currently on peep of 12 and 60% FiO2. ABGs noted, continue to wean FiO2 to maintain O2 sats greater than 92% - will prone patient for 16-18 hours -continue low tidal volume strategy to avoid volume trauma -continue bronchodilators and Pulmicort -sedated with fentanyl, Versed infusion, patient also on Nimbex for neuromuscular blockade (3) Pneumonia due to 2019-nCoV: Code(s): U07.1 - COVID-19; J12.82 - Pneumonia due to coronavirus disease 2019 Status: Acute Assessment and Plan: Positive COVID pneumonia, under vaccinated -patient has completed course of dexamethasone -also completed 10 days of remdesivir -continue droplet, airborne and contact isolation/precautions Patient received 12 days of baricitinib, will discontinue given new CT chest findings, discussed with collar cutter who recommended stopping baricitinib. (4) Supraventricular tachycardia: Code(s): I47.1 - Supraventricular tachycardia Status: Acute Assessment and Plan: Patient had an episode of supraventricular tachycardia with heart rates in the 140s in the ER -patient was on amiodarone and was in sinus bradycardia -off amiodarone, currently in sinus rhythm, rate controlled will restart amiodarone after giving a bolus -continue metoprolol to 25 mg per tube q.12 hours, (5) GERD (gastroesophageal reflux disease): Code(s): K21.9 - Gastro-esophageal reflux disease without esophagitis Status: Acute Assessment and Plan: Continue Protonix (6) DVT prophylaxis: Code(s): Z29.9 - Encounter for prophylactic measures, unspecified Status: Acute Assessment and Plan: Continue Lovenox Additional Plan Nutrition: Patient has high tube feed residuals. Continue Reglan and MiraLax Stress ulcer prophylaxis: Protonix Discussed with Tawana, patient's daughter, updated her with patient's condition and plan of care. I explained to her in details regarding the Staph aureus infection, Enterococcus UTI infection. I also updated her with results on the new CT scan of the chest, abdomen and pelvis. I also told her that we have added extra antibiotics as well as anti fungal medications. I answered all questions Code status: Full code Critical care time spent: 34 minutes This dictation may have been done utilizing a voice recognition system. Attempts have been made to correct errors. However, there may be uncorrected grammatical, spelli
[2021-10-04] MEDS: AMIODARONE 150 MG/D5W 100 ML 150 MG/100 ML BAG 600 MG IV CONT (14:01)
[2021-10-04] MEDS: AMIODARONE 360 MG/D5W 200 ML 360 MG/200 ML BAG 33.33 MG IV CONT ×2 (14:02→19:59)
[2021-10-04 14:46] LABS: Anion Gap 2 mmol/L (8-16); Blood Urea Nitrogen 32 mg/dL (9-20); Calcium 7.4 mg/dL (8.4-10.2); Carbon Dioxide 37 mmol/L (22-30); Chloride 91 mmol/L (98-107); Estimated CRCL calculation 81 ml/min; Estimated Glomerular Filt Rate > 60; Glucose 141 mg/dL (65-110); Potassium 5.5 mmol/L (3.4-5.0); Sodium 130 mmol/L (137-145)
--- NOTE | 2021-10-04 15:43 | PCNFU ---
Nutrition Follow-Up Complete: Inadequate oral intake related to covid 19 as evidenced by reported intake of 20% Goal: Meet nutritional needs Pt is progressing towards goal Pt current nutrition is Vital AF 1.2 running at 65mL/hr over 22 hours Last recorded weight is 79.2 kg. Bowel Motility: +BM 10/03 Labs Reviewed: hgb 10.5, hct 33.0, alb 2.0, Na 126, K 5.4, Cl 90, BUN 35, Cr 0.60, Glu 215, CO2 33 Meds Noted: budesonide, nimbex, lovenox, fentanyl, primaxin, atrovent, oxpenex, levaquin, reglan, lopressor, versed, protonix, miralax, vancomycin Skin: WNL Additional Notes: Pt remains on mechanical ventilation and tube feeding of Vital AF 1.2 running at goal rate of 65mL/hr over 22 hours providing 1716kcal, 107g of protein, and 1160mL of water, meeting 96% of kcal needs and 100% of protein needs. Nursing staff reports this am (10/04/21) that pt has not been tolerating feedings as evidenced by residuals of 150mL - 500mL and puke in pt's OG tube. Reglan was started 09/30/21 to aid in tolerance of tube feedings. If tolerance does not improve, recommend decreasing feeding rate to 55mL/hr to provide 1452kcal, 91g of protein, and 981mL of water to meeting 82% of kcal needs and 100% of protein needs. Agree with diet order at this time. Will continue to follow. Following in ICU rounds daily. Monitor every T/F
[2021-10-04] MEDS: MICAFUNGIN SODIUM 100 MG in SODIUM CHLORIDE 0.9% IV 100 ML IVPB (17:01)
[2021-10-05] VITALS (49 sets, daily range): BP systolic 85–165; BP diastolic 40–71; PULSE 74–135; RESP 26–31; TEMP 35.6–38.2; O2SAT 88–98
[2021-10-05] MEDS: MINERAL OIL/WHITE PETROLATUM OINTMENT 1 APPLIC EACH EYE ×3 (00:04→20:43)
[2021-10-05] MEDS: CENTRAL LINE FLUSH 10 ML IV PUSH ×4 (00:04→20:44)
[2021-10-05] MEDS: METOCLOPRAMIDE HCL INJ 10 MG/2 ML VIAL IV PUSH ×5 (01:35→23:25)
[2021-10-05] MEDS: CISATRACURIUM BESYLATE 200 MG in DEXTROSE 5% 80 ML 7.75 ML IV CONT ×2 (01:35→14:06)
[2021-10-05] MEDS: AMIODARONE 360 MG/D5W 200 ML 360 MG/200 ML BAG 33.33 MG IV CONT ×4 (01:35→19:28)
[2021-10-05] MEDS: LEVALBUTEROL NEB 1.25 MG/3 ML 0.63 MG INHALATION ×3 (04:08→21:16)
[2021-10-05] MEDS: IPRATROPIUM BR 0.02% INH SOLN 0.5 MG/2.5 ML VIAL INHALATION ×3 (04:08→21:17)
[2021-10-05 04:53] LABS: Basophils Absolute Auto 0.1 K/mm3 (0.0-0.1); Basophils Percent Auto 0.3 % (0.2-1.2); Hemoglobin 10.3 g/dL (14.0-18.0); Immature Granulocyte Absolute 3.18 K/mm3 (0.00-0.031); Immature Granulocyte Percent A 11.6 % (0-0.5); Lymphocytes Absolute Auto 0.49 K/mm3 (0.9-3.2); Lymphocytes Percent Auto 1.8 % (18.3-44.2); Mean Corpuscular HGB Conc 32.2 g/dl (32-36); Mean Corpuscular Hemoglobin 32.7 pg (26-34); Mean Corpuscular Volume 101.6 fl (80-100); Mean Platelet Volume 10.3 fl (7.4-10.4); Monocytes Absolute Auto 3.4 K/mm3 (0.1-0.6); Monocytes Percent Auto 12.3 % (2.6-8.5); Neutrophils Absolute Auto 20.3 K/mm3 (1.3-6.7); Platelet Count Result 184 k/mm3 (150-375); Red Blood Count 3.15 M/mm3 (4.6-6.20); White Blood Count 27.5 K/mm3 (4.5-10.0)
[2021-10-05 05:07] LABS: Alanine Aminotransferase 31 U/L (4-50); Albumin Level 2.1 g/dL (3.5-5.1); Alkaline Phosphatase 84 U/L (38-126); Anion Gap 4 mmol/L (8-16); Aspartate Amino Transferase 33 U/L (17-59); Bilirubin,Total 0.5 mg/dL (0.2-1.3); Blood Urea Nitrogen 25 mg/dL (9-20); Calcium 7.4 mg/dL (8.4-10.2); Carbon Dioxide 35 mmol/L (22-30); Chloride 88 mmol/L (98-107); Estimated CRCL calculation 110 ml/min; Estimated Glomerular Filt Rate > 60; Glucose 170 mg/dL (65-110); Phosphorus 2.6 mg/dL (2.5-4.5); Sodium 127 mmol/L (137-145)
[2021-10-05 06:58] LABS: Alveolar/Arterial O2 Gradient 289.5 mmHg; Base Excess ABG 9.9 mEq/l (+/-2.0); Carboxyhemoglobin 0.3 % THb (0-2.0); Fractional Inspired Oxygen 70 %; HCO3 ABG 37.7 mEq/l (22.0-26.0); Methemoglobin ABG 0.4 %THb (0-1.5); Oxygen Content ABG 16.1 %vol (16.0-22.0); Oxygen Saturation ABG 98.5 % (95.0-100.0); Oxyhemoglobin 97.3 % THb (90.0-100.0); PO2 ABG 135.4 mmHg (80.0-100.0); PO2 FiO2 Ratio Arterial Blood 1.93 %; Total Hemoglobin 11.6 g/dL (12.0-18.0); pH ABG 7.355 (7.350-7.450)
[2021-10-05] MEDS: FENTANYL 2,500MCG/NS250ML(*CRX 2,500 MCG/250 ML BAG 20 MCG IV CONT ×2 (06:59→19:29)
[2021-10-05 07:00] LABS: Device VENTILATOR; Modified Allen's Test Pass; Site Drawn RIGHT RADIAL
[2021-10-05] MEDS: MIDAZOLAM 100MG/NS 100ML(*CRX) 100 MG/100 ML BAG 8 MG IV CONT ×2 (07:00→20:41)
[2021-10-05 07:01] LABS: Arterial Blood Gas PEEP 12 cmH2O; Arterial Blood Gas Tidal Volume 400 ml; Arterial Blood Gas Vent Mode CMV; Arterial Blood Gas Ventilator rate 26 /MIN
[2021-10-05] MEDS: PANTOPRAZOLE SODIUM IV 40 MG VIAL IV PUSH (08:22)
[2021-10-05] MEDS: ASPIRIN 325 MG TABLET PO (08:22)
[2021-10-05] MEDS: polyethylene glycoL 3350 17 GM POWD.PACK PO (08:22)
[2021-10-05] MEDS: MICAFUNGIN SODIUM 100 MG in SODIUM CHLORIDE 0.9% IV 100 ML IVPB (08:23)
[2021-10-05] MEDS: ENOXAPARIN 40 MG/0.4 ML SYRINGE SUB-Q (08:23)
[2021-10-05] MEDS: BUDESONIDE RESPULE NEB 0.5 MG/2 ML AMP INHALATION ×2 (08:34→21:17)
--- NOTE | 2021-10-05 12:56 | WPDINTPN ---
Progress Note: A&P Assessment and Plan (1) Sepsis: Code(s): A41.9 - Sepsis, unspecified organism Status: Acute Assessment and Plan: Patient growing staph aureus bacteremia on blood cultures from 09/29. Chest pansensitive -urine cultures growing Enterococcus species on 09/29 -continue vancomycin and imipenem(09/29) 10/04: WBC count trending up, patient is febrile Discussed with Dr Childers, Pulmonologiist, given patient's CT findings, -continue levofloxacin, micafungin (10/04) as his white count is elevated and is febrile. Also stop his baricitinib (he has received 12 doses) 10/04/2021 CT scan of the chest abdomen and pelvis: Worsened diffuse lung disease including areas of new cavitation in the lower lobes and right upper lobe, likely a combination of necrotizing bacterial pneumonia and COVID-19 pneumonia. 10/03/2021: Echocardiogram LVEF 60-65%, no evidence of endocarditis 10/03: blood cultures negative x2, preliminary report, 09/16: urine cultures negative 10/04 sputum culture, pending (2) Acute respiratory failure: Code(s): J96.00 - Acute respiratory failure, unspecified whether with hypoxia or hypercapnia Status: Acute Assessment and Plan: Acute hypoxic respiratory failure likely related to COVID pneumonia -patient intubated on 09/25/2021 after of failing BiPAP in being on 100% FiO2, he was also pulling at his BiPAP mask and not keeping it on there by desaturating Chest x-ray this morning Worsened diffuse lung disease, consistent with COVID-19 pneumonia versus acute respiratory distress syndrome (ARDS). -currently on peep of 12 and 60% FiO2. ABGs noted, continue to wean FiO2 to maintain O2 sats greater than 92% - will prone patient for 16-18 hours -continue low tidal volume strategy to avoid volume trauma -continue bronchodilators and Pulmicort -sedated with fentanyl, Versed infusion, patient also on Nimbex for neuromuscular blockade (3) Pneumonia due to 2019-nCoV: Code(s): U07.1 - COVID-19; J12.82 - Pneumonia due to coronavirus disease 2019 Status: Acute Assessment and Plan: Positive COVID pneumonia, under vaccinated -patient has completed course of dexamethasone -also completed 10 days of remdesivir -continue droplet, airborne and contact isolation/precautions Patient received 12 days of baricitinib, will discontinue given new CT chest findings, discussed with aerospace control and warning systems who recommended stopping baricitinib. (4) Supraventricular tachycardia: Code(s): I47.1 - Supraventricular tachycardia Status: Acute Assessment and Plan: Patient had an episode of supraventricular tachycardia with heart rates in the 140s in the ER -c increase metoprolol to 50 mg per tube q.12 hours, -patient was also Restarted on amiodarone on 10/04 (5) GERD (gastroesophageal reflux disease): Code(s): K21.9 - Gastro-esophageal reflux disease without esophagitis Status: Acute Assessment and Plan: Continue Protonix (6) DVT prophylaxis: Code(s): Z29.9 - Encounter for prophylactic measures, unspecified Status: Acute Assessment and Plan: Continue Lovenox Additional Plan Nutrition: Patient has high tube feed residuals. Continue Reglan and MiraLax Stress ulcer prophylaxis: Protonix 10/04: Discussed with Tawana, patient's daughter, updated her with patient's condition and plan of care. I explained to her in details regarding the Staph aureus infection, Enterococcus UTI infection. I also updated her with results on the new CT scan of the chest, abdomen and pelvis. I also told her that we have added extra antibiotics as well as anti fungal medications. I answered all questions Code status: Full code Critical care time spent: 32 minutes This dictation may have been done utilizing a voice recognition system. Attempts have been made to correct errors. However, there may be uncorrected grammatical, spelling, and recognition errors prese
--- NOTE | 2021-10-05 15:27 | PCRCNOTE ---
Window of time for administration has passed. See next scheduled administration.
[2021-10-05] MEDS: METOPROLOL TARTRATE 50 MG TAB PO (20:48)
--- NOTE | 2021-10-05 23:03 | PC.NURSE ---
10/05/20 0610 nimbex increased due pt breathing with set rate of 26.
[2021-10-05] MEDS: SODIUM CHLORIDE 0.9% IV 500 ML IV CONT (23:56)
[2021-10-06] VITALS (52 sets, daily range): BP systolic 104–138; BP diastolic 38–70; PULSE 71–115; RESP 24–30; TEMP 36.6–37.8; O2SAT 90–100
[2021-10-06] MEDS: AMIODARONE 360 MG/D5W 200 ML 360 MG/200 ML BAG 33.33 MG IV CONT ×4 (01:36→19:28)
[2021-10-06] MEDS: CISATRACURIUM BESYLATE 200 MG in DEXTROSE 5% 80 ML 7.75 ML IV CONT (01:37)
[2021-10-06] MEDS: IPRATROPIUM BR 0.02% INH SOLN 0.5 MG/2.5 ML VIAL INHALATION ×4 (03:45→20:38)
[2021-10-06] MEDS: LEVALBUTEROL NEB 1.25 MG/3 ML 0.63 MG INHALATION ×4 (03:45→20:38)
[2021-10-06 04:10] LABS: Hematocrit 32.2 % (42.0-52.0); Hemoglobin 10.2 g/dL (14.0-18.0); Mean Corpuscular HGB Conc 31.7 g/dl (32-36); Mean Corpuscular Volume 104.2 fl (80-100); Mean Platelet Volume 10.4 fl (7.4-10.4); Platelet Count Result 189 k/mm3 (150-375); Red Blood Count 3.09 M/mm3 (4.6-6.20); Red Cell Distribution Width 13.6 % (11.5-14.5)
[2021-10-06 04:21] LABS: Alanine Aminotransferase 36 U/L (4-50); Albumin Level 2.1 g/dL (3.5-5.1); Alkaline Phosphatase 110 U/L (38-126); Anion Gap 5 mmol/L (8-16); Aspartate Amino Transferase 43 U/L (17-59); Bilirubin,Total 0.5 mg/dL (0.2-1.3); Blood Urea Nitrogen 32 mg/dL (9-20); Calcium 7.4 mg/dL (8.4-10.2); Carbon Dioxide 34 mmol/L (22-30); Chloride 86 mmol/L (98-107); Estimated CRCL calculation 53 ml/min; Estimated Glomerular Filt Rate > 60; Glucose 115 mg/dL (65-110); Potassium 5.9 mmol/L (3.4-5.0); Sodium 125 mmol/L (137-145)
[2021-10-06 04:42] LABS: White Blood Count 53.3 K/mm3 (4.5-10.0)
[2021-10-06 04:44] LABS: Band Neutrophils Percent 7 % (0-6); Lymphocytes Absolute Manual 0.53 K/mm3 (1.1-4.5); Monocytes Absolute Manual 6.39 K/mm3 (0.1-0.90); Monocytes Percent Manual 12 % (3-9); Neutrophils Absolute Manual 46.37 K/mm3 (1.3-6.7); Neutrophils Percent Manual 80 % (46-73); Platelet Estimate Adequate (Adequate); Total Cells Counted 100
[2021-10-06] MEDS: CENTRAL LINE FLUSH 10 ML IV PUSH ×3 (05:59→23:06)
[2021-10-06] MEDS: METOCLOPRAMIDE HCL INJ 10 MG/2 ML VIAL IV PUSH ×4 (06:00→23:17)
[2021-10-06 06:30] LABS: Alveolar/Arterial O2 Gradient 427.1 mmHg; Base Excess ABG 4.2 mEq/l (+/-2.0); Carboxyhemoglobin 0.4 % THb (0-2.0); Fractional Inspired Oxygen 85 %; HCO3 ABG 31.8 mEq/l (22.0-26.0); Methemoglobin ABG 0.3 %THb (0-1.5); Oxygen Content ABG 19.8 %vol (16.0-22.0); Oxygen Saturation ABG 97.9 % (95.0-100.0); Oxyhemoglobin 96.9 % THb (90.0-100.0); PO2 ABG 115.8 mmHg (80.0-100.0); PO2 FiO2 Ratio Arterial Blood 1.36 %; Reduced Hemoglobin 2.4 %THb (0-5.0); Total Hemoglobin 14.4 g/dL (12.0-18.0); pH ABG 7.336 (7.350-7.450)
[2021-10-06 06:33] LABS: PCO2 ABG 60.9 mmHg (35.0-45.0)
[2021-10-06 06:35] LABS: Arterial Blood Gas PEEP 12 cmH2O; Arterial Blood Gas Tidal Volume 400 ml; Arterial Blood Gas Vent Mode CMV; Arterial Blood Gas Ventilator rate 26 /MIN; Device VENTILATOR; Modified Allen's Test Pass; Site Drawn RIGHT RADIAL
[2021-10-06] MEDS: FENTANYL 2,500MCG/NS250ML(*CRX 2,500 MCG/250 ML BAG 20 MCG IV CONT ×2 (07:45→19:29)
[2021-10-06] MEDS: MINERAL OIL/WHITE PETROLATUM OINTMENT 1 APPLIC EACH EYE ×2 (08:01→23:06)
[2021-10-06] MEDS: PANTOPRAZOLE SODIUM IV 40 MG VIAL IV PUSH (08:01)
[2021-10-06] MEDS: ASPIRIN 325 MG TABLET PO (08:01)
[2021-10-06] MEDS: ENOXAPARIN 40 MG/0.4 ML SYRINGE SUB-Q (08:01)
[2021-10-06] MEDS: polyethylene glycoL 3350 17 GM POWD.PACK PO (08:01)
[2021-10-06] MEDS: MICAFUNGIN SODIUM 100 MG in SODIUM CHLORIDE 0.9% IV 100 ML IVPB (08:02)
[2021-10-06] MEDS: BUDESONIDE RESPULE NEB 0.5 MG/2 ML AMP INHALATION ×2 (08:07→20:38)
[2021-10-06] MEDS: DEXTROSE 50% 25 GM/50 ML SYRINGE IV PUSH (08:37)
[2021-10-06] MEDS: SODIUM BICARBONATE 8.4% 50 MEQ/50 ML SYRINGE IV PUSH (08:37)
[2021-10-06] MEDS: INSULIN HUMAN REGULAR (*BKC) 100 UNITS/ML 10 UNITS IV PUSH (08:38)
[2021-10-06] MEDS: SODIUM POLYSTYRENE SULFONONATE 15 GM/60 ML BTL 30 GM PO (08:38)
[2021-10-06] MEDS: MIDAZOLAM 100MG/NS 100ML(*CRX) 100 MG/100 ML BAG 8 MG IV CONT ×2 (09:57→23:03)
--- NOTE | 2021-10-06 10:00 | WPDINTPN ---
Progress Note: A&P Assessment and Plan (1) Sepsis: Code(s): A41.9 - Sepsis, unspecified organism Status: Acute Assessment and Plan: Patient growing staph aureus bacteremia on blood cultures from 09/29. Chest pansensitive -urine cultures growing Enterococcus species on 09/29 -continue vancomycin and imipenem(09/29) and -continue levofloxacin, micafungin (10/04) 10/06/2021: WBC count is 53.3, check stool for C diff, fever curve Discussed with Dr Childers, Pulmonologiist, given patient's CT findings, - Also stop his baricitinib (he has received 12 doses) 10/04/2021 CT scan of the chest abdomen and pelvis: Worsened diffuse lung disease including areas of new cavitation in the lower lobes and right upper lobe, likely a combination of necrotizing bacterial pneumonia and COVID-19 pneumonia. 10/03/2021: Echocardiogram LVEF 60-65%, no evidence of endocarditis 10/03: blood cultures negative x2, preliminary report, 09/16: urine cultures negative 10/04 sputum culture, pending (2) Acute respiratory failure: Code(s): J96.00 - Acute respiratory failure, unspecified whether with hypoxia or hypercapnia Status: Acute Assessment and Plan: Acute hypoxic respiratory failure likely related to COVID pneumonia -patient intubated on 09/25/2021 after of failing BiPAP in being on 100% FiO2, he was also pulling at his BiPAP mask and not keeping it on there by desaturating Chest x-ray this morning stabe COVID-19 pneumonia. -currently on peep of 12 and 85% FiO2. ABGs noted, continue to wean FiO2 to maintain O2 sats greater than 92% - will prone patient for 16-18 hours -continue low tidal volume strategy to avoid volume trauma -continue bronchodilators and Pulmicort -sedated with fentanyl, Versed infusion, patient also on Nimbex for neuromuscular blockade (3) Pneumonia due to 2019-nCoV: Code(s): U07.1 - COVID-19; J12.82 - Pneumonia due to coronavirus disease 2018 Status: Acute Assessment and Plan: Positive COVID pneumonia, under vaccinated -patient has completed course of dexamethasone -also completed 10 days of remdesivir -continue droplet, airborne and contact isolation/precautions Patient received 12 days of baricitinib, had to discontinue given new CT chest findings, discussed with head loader who recommended stopping baricitinib. (4) Supraventricular tachycardia: Code(s): I47.1 - Supraventricular tachycardia Status: Acute Assessment and Plan: Patient had an episode of supraventricular tachycardia with heart rates in the 140s in the ER -currently on amiodarone infusion, currently in sinus rhythm, rate controlled. -patient had some low blood pressures overnight with metoprolol, will currently hold (5) GERD (gastroesophageal reflux disease): Code(s): K21.9 - Gastro-esophageal reflux disease without esophagitis Status: Acute Assessment and Plan: Continue Protonix (6) DVT prophylaxis: Code(s): Z29.9 - Encounter for prophylactic measures, unspecified Status: Acute Assessment and Plan: Continue Lovenox Additional Plan Nutrition: Patient not tolerating tube feeds, high residuals. Continue Reglan and MiraLax. Will obtain obstructive series Stress ulcer prophylaxis: Protonix 10/04: Discussed with Tawana, patient's daughter, updated her with patient's condition and plan of care. I explained to her in details regarding the Staph aureus infection, Enterococcus UTI infection. I also updated her with results on the new CT scan of the chest, abdomen and pelvis. I also told her that we have added extra antibiotics as well as anti fungal medications. I answered all questions Code status: Full code Critical care time spent: 32 minutes This dictation may have been done utilizing a voice recognition system. Attempts have been made to correct errors. However, there may be uncorrected grammatical, spelling, and recognition errors present.
[2021-10-06 10:01] LABS: Hematocrit 29.6 % (42.0-52.0); Hemoglobin 9.6 g/dL (14.0-18.0); Mean Corpuscular HGB Conc 32.4 g/dl (32-36); Mean Corpuscular Hemoglobin 33.6 pg (26-34); Mean Corpuscular Volume 103.5 fl (80-100); Mean Platelet Volume 10.3 fl (7.4-10.4); Platelet Count Result 170 k/mm3 (150-375); Red Blood Count 2.86 M/mm3 (4.6-6.20); Red Cell Distribution Width 13.5 % (11.5-14.5)
[2021-10-06 10:16] LABS: Anion Gap 2 mmol/L (8-16); Blood Urea Nitrogen 27 mg/dL (9-20); Calcium 7.3 mg/dL (8.4-10.2); Carbon Dioxide 37 mmol/L (22-30); Chloride 86 mmol/L (98-107); Estimated CRCL calculation 92 ml/min; Estimated Glomerular Filt Rate > 60; Glucose 169 mg/dL (65-110); Potassium 5.4 mmol/L (3.4-5.0); Sodium 125 mmol/L (137-145)
[2021-10-06] MEDS: ALBUTEROL SULFATE NEB 2.5 MG/0.5 ML INH 15 MG INHALATION (12:04)
[2021-10-06 12:51] LABS: Aspartate Amino Transferase 47 U/L (17-59)
[2021-10-06] MEDS: CISATRACURIUM BESYLATE 200 MG in DEXTROSE 5% 80 ML 8.86 ML IV CONT (13:12)
[2021-10-06 13:53] LABS: Vancomycin Trough 13.2 ug/mL (10.0-20.0)
[2021-10-06] MEDS: ENOXAPARIN 100 MG/ML SYRINGE 85 MG SUB-Q (17:44)
[2021-10-06] MEDS: CISATRACURIUM BESYLATE 200 MG in DEXTROSE 5% 80 ML 11.07 ML IV CONT (23:04)
--- NOTE | 2021-10-06 23:26 | PC.NURSE ---
electrodes placed on [facility] for train of 4. 4/4 twitches. nimbex drip increased.
[2021-10-07] VITALS (55 sets, daily range): BP systolic 108–138; BP diastolic 47–66; PULSE 92–120; RESP 26–30; TEMP 37.3–37.7; O2SAT 80–95
[2021-10-07] MEDS: LEVALBUTEROL NEB 1.25 MG/3 ML 0.63 MG INHALATION ×4 (01:19→21:29)
[2021-10-07] MEDS: IPRATROPIUM BR 0.02% INH SOLN 0.5 MG/2.5 ML VIAL INHALATION ×4 (01:19→21:29)
[2021-10-07] MEDS: AMIODARONE 360 MG/D5W 200 ML 360 MG/200 ML BAG 33.33 MG IV CONT ×4 (01:38→20:16)
[2021-10-07 05:01] LABS: Hematocrit 28.6 % (42.0-52.0); Hemoglobin 9.2 g/dL (14.0-18.0); Mean Corpuscular HGB Conc 32.2 g/dl (32-36); Mean Corpuscular Hemoglobin 32.7 pg (26-34); Mean Corpuscular Volume 101.8 fl (80-100); Mean Platelet Volume 10.3 fl (7.4-10.4); Platelet Count Result 150 k/mm3 (150-375); Red Blood Count 2.81 M/mm3 (4.6-6.20); Red Cell Distribution Width 13.8 % (11.5-14.5); White Blood Count 27.2 K/mm3 (4.5-10.0)
[2021-10-07] MEDS: ENOXAPARIN 100 MG/ML SYRINGE 85 MG SUB-Q ×2 (05:06→17:06)
[2021-10-07] MEDS: METOCLOPRAMIDE HCL INJ 10 MG/2 ML VIAL IV PUSH ×4 (05:06→23:28)
[2021-10-07] MEDS: CISATRACURIUM BESYLATE 200 MG in DEXTROSE 5% 80 ML 16.61 ML IV CONT (05:08)
[2021-10-07 05:12] LABS: Alanine Aminotransferase 34 U/L (4-50); Alkaline Phosphatase 110 U/L (38-126); Anion Gap 2 mmol/L (8-16); Aspartate Amino Transferase 45 U/L (17-59); Bilirubin,Total 0.6 mg/dL (0.2-1.3); Blood Urea Nitrogen 18 mg/dL (9-20); Calcium 7.7 mg/dL (8.4-10.2); Carbon Dioxide 39 mmol/L (22-30); Chloride 86 mmol/L (98-107); Estimated CRCL calculation 105 ml/min; Estimated Glomerular Filt Rate > 60; Glucose 128 mg/dL (65-110); Potassium 4.5 mmol/L (3.4-5.0); Sodium 127 mmol/L (137-145)
[2021-10-07] MEDS: CENTRAL LINE FLUSH 10 ML IV PUSH ×3 (05:15→20:19)
[2021-10-07 05:46] LABS: Band Neutrophils Percent 7 % (0-6); Lymphocytes Absolute Manual 1.36 K/mm3 (1.1-4.5); Metamyelocytes Percent 1 %; Monocytes Absolute Manual 0.81 K/mm3 (0.1-0.90); Monocytes Percent Manual 3 % (3-9); Neutrophils Absolute Manual 24.75 K/mm3 (1.3-6.7); Neutrophils Percent Manual 84 % (46-73); Platelet Estimate Adequate (Adequate); Total Cells Counted 100
[2021-10-07 05:47] LABS: Anisocytosis 1+ (NORMAL); Atypical Lymphocytes Present
[2021-10-07 06:24] LABS: Alveolar/Arterial O2 Gradient 449.1 mmHg; Base Excess ABG 10.7 mEq/l (+/-2.0); Fractional Inspired Oxygen 80 %; HCO3 ABG 35.9 mEq/l (22.0-26.0); Methemoglobin ABG 0.1 %THb (0-1.5); Oxygen Content ABG 13.4 %vol (16.0-22.0); Oxygen Saturation ABG 94.2 % (95.0-100.0); Oxyhemoglobin 93.7 % THb (90.0-100.0); PO2 ABG 67.8 mmHg (80.0-100.0); PO2 FiO2 Ratio Arterial Blood 0.85 %; Reduced Hemoglobin 6.2 %THb (0-5.0); Total Hemoglobin 10.1 g/dL (12.0-18.0); pH ABG 7.465 (7.350-7.450)
[2021-10-07 06:33] LABS: Device VENTILATOR; Modified Allen's Test Unable to perform; Site Drawn RIGHT RADIAL
[2021-10-07 06:34] LABS: Arterial Blood Gas Vent Mode CMV; Arterial Blood Gas Ventilator rate 26 /MIN
[2021-10-07 06:35] LABS: Arterial Blood Gas PEEP 12 cmH2O; Arterial Blood Gas Tidal Volume 400 ml
[2021-10-07] MEDS: BUDESONIDE RESPULE NEB 0.5 MG/2 ML AMP INHALATION ×2 (08:23→21:30)
[2021-10-07] MEDS: FENTANYL 2,500MCG/NS250ML(*CRX 2,500 MCG/250 ML BAG 20 MCG IV CONT ×2 (08:33→20:15)
[2021-10-07] MEDS: MICAFUNGIN SODIUM 100 MG in SODIUM CHLORIDE 0.9% IV 100 ML IVPB (08:39)
[2021-10-07] MEDS: MINERAL OIL/WHITE PETROLATUM OINTMENT 1 APPLIC EACH EYE ×2 (08:39→20:16)
[2021-10-07] MEDS: PANTOPRAZOLE SODIUM IV 40 MG VIAL IV PUSH (08:40)
[2021-10-07] MEDS: ASPIRIN 325 MG TABLET PO (08:40)
[2021-10-07] MEDS: polyethylene glycoL 3350 17 GM POWD.PACK PO (08:40)
--- NOTE | 2021-10-07 11:02 | PM.PNPUL ---
Progress Note: A&P Assessment and Plan (1) Cavitary lesion of lung: Code(s): J98.4 - Other disorders of lung Status: Acute Assessment and Plan: 10/04 Patient with severe COVID pneumonia with Staph bacteremia, Staph and Enterococcus in his urine and now with a development of new multifocal cavitary lung lesions on his CT scan from 10/04/2021 compared to 09/29/2021. Patient has an echocardiogram that is negative for evidence of endocarditis. Patient remains febrile with a leukocytosis of 37.1 while on vancomycin and imipenem from 09/29. Repeat blood, urine and sputum cultures are pending. Patient has been Immunocompromised with COVID pneumonia, dexamethasone and baracitinib (day 12). At this time I feel the risks of baracitinib outweigh the benefits and I would discontinue this medication. Patient is currently off dexamethasone. At this time I would continue vancomycin for likely staphylococcal related cavitary pneumonia. Patient with continued fever and leukocytosis despite being on imipenem and it is possible that he could have a resistant gram-negative organism and at this time I would add Levaquin. Fungal infection is also possible and given the severity of his disease I recommend an emperic trial of micafungin. 10/07/21 Patient remains intubated, sedated and paralyzed. Patient remains on respiratory rate 26, tidal volume 400, peep of 12 and 80% with saturations 91 % currently. T-max on 10/04 was 38.1. T-max on 10/05 was 38.2. T-max on 10/06 was 37.8. White blood cell count today is 27.2. Overall his fever curve is much improved and his white blood cell count is elevated but improved after the addition of Levaquin and micafungin. Cultures are negative. Chest x-ray is stable. Would contribute continue vancomycin and imipenem for 14 days and repeat a CT scan after approximately 10 days of Levaquin and Micafungin to reassess his cavitary pneumonia. Discussed with Dr. Ozuna, will sing off, call with questions. Subjective Date/time seen: 10/07/21 11:02 Interval history: 10/04/2021: This is a new pulmonary consult for cavitary lung disease. 66-year-old man with a history of hypertension, SVT, BPH, GERD and anxiet presented to the hospital on 09/23/21 with shortness of breath and found to have severe COVID pneumonia. Patient was intubated on 09/25 after failing BiPAP and was in multi-system organ failure with shock requiring Levophed. patient was treated with Remdesivir, dexamethasone, baricitinib, sedation, paralytics, and prone ventilation. initial CT angiogram on 09/29 demonstrated no pulmonary embolism but extensive bilateral patchy infiltrates consistent with COVID pneumonia. blood cultures on 09/25 were negative. Blood cultures on 09/29 demonstrated pansensitive Staph low coccus aureus in 2 of 2 cultures. Patient had a urine culture on 09/29 which grew out Diaz sensitive coag-negative staph low coccus and Enterococcus sensitive to ampicillin, vancomycin and nitrofurantoin. Patient was started on vancomycin and imipenem on 09/29 but despite this has continued fevers and increasing leukocytosis. CT scan of chest abdomen and pelvis on 1230 demonstrated worsening diffuse lung disease with new cavitation in the right upper lobe and both lower lobes compared with 09/29/2021. 10/04 patient remains intubated, sedated with Versed and fentanyl and paralyzed. Currently patient is on CMV with a respiratory rate of 26, tidal volume 400, peep 12, FiO2 100%, peak airway pressure 29, minute ventilation 9.5 with saturations 98%. Blood gas this morning was 7.38/60/102. his white count is 37.1, T max on 10/02 was 37.9. T-max on 10/03 was 39.2. And T-max so far today is 37.5. blood cultures from 10/03, urine culture from 10/03 and sputum culture from 10/04 are pending. 10/07/21 Patient remains intubated, sedated and paralyzed. Patient remains on respiratory rate 26, tidal volume 400, peep of 12 and 80% wit
[2021-10-07] MEDS: MIDAZOLAM 100MG/NS 100ML(*CRX) 100 MG/100 ML BAG 8 MG IV CONT ×2 (11:09→21:56)
[2021-10-07] MEDS: POTASSIUM/PHOSPHORUS/SODIUM 1.5 GM PACKET 1 PACKET PO (11:09)
[2021-10-07] MEDS: CISATRACURIUM BESYLATE 200 MG in DEXTROSE 5% 80 ML 12.18 ML IV CONT (11:10)
[2021-10-07] MEDS: METOPROLOL TARTRATE 12.5 MG TABLET PO ×2 (11:23→20:19)
--- NOTE | 2021-10-07 11:58 | PCFNICU ---
ICU Rounding Note: Pt current nutrition is Vital AF 1.2 at 65 ml/hr over 22 hours. Last recorded weight is 76.7 kg-stable. Bowel Motility:+BM reported 10/05 Labs Reviewed:Cr 0.6,Na 127, Alb 2.0,Hct 28.6, Hgb 9.2 Meds Noted:Fentanyl, Nimbex, Versed, Lovenox, Protonix, Miralax, Vancomycin,Reglan,Atrovent. Skin:WNL Additional Notes: Patient remains on mechanical vent and tube feedings of Vital AF 1.2 at 65 ml/hr and tolerating. Agree with diet orders. Following daily in ICU rounds. Reassessing every Thursday and Thursday.
--- NOTE | 2021-10-07 12:50 | WPDINTPN ---
Progress Note: A&P Assessment and Plan (1) Sepsis: Code(s): A41.9 - Sepsis, unspecified organism Status: Acute Assessment and Plan: Patient growing staph aureus bacteremia on blood cultures from 09/29. Chest pansensitive -urine cultures growing Enterococcus species on 09/29 -continue vancomycin and imipenem(09/29) and -continue levofloxacin, micafungin (10/04) will continue antibiotics for at least 2 weeks and then repeat another CT scan of the chest 10/06/2021: WBC count is 53.3, check stool for C diff, fever curve 10/07/2021: WBC count trending down, fever curve has improved, patient had hypothermic requiring Irma Hugger intermittently. Discussed with Dr Childers, Pulmonologiist, given patient's CT findings, - Also stop his baricitinib (he has received 12 doses) 10/04/2021 CT scan of the chest abdomen and pelvis: Worsened diffuse lung disease including areas of new cavitation in the lower lobes and right upper lobe, likely a combination of necrotizing bacterial pneumonia and COVID-19 pneumonia. 10/03/2021: Echocardiogram LVEF 60-65%, no evidence of endocarditis 10/03: blood cultures negative x2, preliminary report, 09/16: urine cultures negative 10/04 sputum culture, pending (2) Acute respiratory failure: Code(s): J96.00 - Acute respiratory failure, unspecified whether with hypoxia or hypercapnia Status: Acute Assessment and Plan: Acute hypoxic respiratory failure likely related to COVID pneumonia -patient intubated on 09/25/2021 after of failing BiPAP in being on 100% FiO2, he was also pulling at his BiPAP mask and not keeping it on there by desaturating Chest x-ray this morning stabe COVID-19 pneumonia. -currently on peep of 12 and 80% FiO2. ABGs noted, continue to wean FiO2 to maintain O2 sats greater than 92% - will prone patient for 16-18 hours -continue low tidal volume strategy to avoid volume trauma -continue bronchodilators and Pulmicort -sedated with fentanyl, Versed infusion, patient also on Nimbex for neuromuscular blockade (3) Pneumonia due to 2019-nCoV: Code(s): U07.1 - COVID-19; J12.82 - Pneumonia due to coronavirus disease 2019 Status: Acute Assessment and Plan: Positive COVID pneumonia, under vaccinated -patient has completed course of dexamethasone -also completed 10 days of remdesivir -continue droplet, airborne and contact isolation/precautions Patient received 12 days of baricitinib, had to discontinue given new CT chest findings, discussed with qc analyst who recommended stopping baricitinib. (4) Supraventricular tachycardia: Code(s): I47.1 - Supraventricular tachycardia Status: Acute Assessment and Plan: Patient had an episode of supraventricular tachycardia with heart rates in the 140s in the ER -currently on amiodarone infusion, currently in sinus rhythm, rate controlled. -patient had some low blood pressures overnight with metoprolol, will currently hold (5) GERD (gastroesophageal reflux disease): Code(s): K21.9 - Gastro-esophageal reflux disease without esophagitis Status: Acute Assessment and Plan: Continue Protonix (6) DVT prophylaxis: Code(s): Z29.9 - Encounter for prophylactic measures, unspecified Status: Acute Assessment and Plan: Continue Lovenox Additional Plan Nutrition: Patient not tolerating tube feeds, high residuals. Continue Reglan and MiraLax. Obstructive series showed moderate colonic stool and gas, Stress ulcer prophylaxis: Protonix 10/04: Discussed with Tawana, patient's daughter, updated her with patient's condition and plan of care. I explained to her in details regarding the Staph aureus infection, Enterococcus UTI infection. I also updated her with results on the new CT scan of the chest, abdomen and pelvis. I also told her that we have added extra antibiotics as well as anti fungal medications. I answered all questions Code status: Full code Cr
[2021-10-07] MEDS: CISATRACURIUM BESYLATE 200 MG in DEXTROSE 5% 80 ML 19.93 ML IV CONT (17:12)
[2021-10-07] MEDS: CISATRACURIUM BESYLATE 200 MG in DEXTROSE 5% 80 ML 21.03 ML IV CONT (21:55)
[2021-10-07 23:21] LABS: Alveolar/Arterial O2 Gradient 571.1 mmHg; Base Excess ABG 9.1 mEq/l (+/-2.0); Carboxyhemoglobin 0.3 % THb (0-2.0); Fractional Inspired Oxygen 100 %; HCO3 ABG 38.7 mEq/l (22.0-26.0); Methemoglobin ABG 0.5 %THb (0-1.5); Oxygen Content ABG 13.1 %vol (16.0-22.0); PO2 FiO2 Ratio Arterial Blood 0.55 %; Reduced Hemoglobin 16.9 %THb (0-5.0); Total Hemoglobin 11.3 g/dL (12.0-18.0)
[2021-10-07 23:24] LABS: PCO2 ABG 86.9 mmHg (35.0-45.0); pH ABG 7.267 (7.350-7.450)
[2021-10-07 23:25] LABS: Device VENTILATOR; Modified Allen's Test Unable to perform; Oxygen Saturation ABG 82.2 % (95.0-100.0); Oxyhemoglobin 82.3 % THb (90.0-100.0); Site Drawn RIGHT RADIAL
[2021-10-07 23:27] LABS: Arterial Blood Gas Vent Mode CMV; Arterial Blood Gas Ventilator rate 26 /MIN
[2021-10-07 23:28] LABS: Arterial Blood Gas PEEP 14 cmH2O; Arterial Blood Gas Tidal Volume 400 ml
--- NOTE | 2021-10-07 23:55 | PC.NURSE ---
Pt O2 sat running 88-91. Pt disconnected from ventilator with position change and drop in on oxygen saturation. Pt bagged and repositioned. CXR and ABG obtained. Critical ABG's called to Dr Ozuna and orders received. Will start flolan, increase RR to 30, and if O2 saturation doesn't improve to at least 90% will increase peep to 16.
[2021-10-08] VITALS (14 sets, daily range): BP systolic 108–123; BP diastolic 47–62; PULSE 96–117; RESP 26–31; TEMP 36.8–37.2; O2SAT 76–92
[2021-10-08] MEDS: EPOPROSTENOL SODIUM 0.5 MG VIAL 1 MG INHALATION (00:33)
[2021-10-08] MEDS: AMIODARONE 360 MG/D5W 200 ML 360 MG/200 ML BAG 33.33 MG IV CONT (02:15)
[2021-10-08] MEDS: CISATRACURIUM BESYLATE 200 MG in DEXTROSE 5% 80 ML 21.03 ML IV CONT (02:16)
--- NOTE | 2021-10-08 02:24 | PC.NURSE ---
Pt on flolan satting 91% with sudden drop to 83%. Pt continues to drop, attempt to bag but O2 saturation will not get higher than 75%. Placed back on vent with peep of 16 and saturations continue to be poor currently 79%. Dr Ozuna called and updated no further interventions at this time, pt maxed on vent and flolan. Call placed to family and message left.
--- NOTE | 2021-10-08 03:18 | PC.NURSE ---
Spoke with Megan and Daughter Tawana and made aware of current status. Family agrees with changing code status to DNR at this time and is discussing withdrawing care. DNR request verified by Chente Clark RN.
--- NOTE | 2021-10-08 05:08 | PC.NURSE ---
10/08/21421 Family spoke with Chente ROJOcharge weigher nurse and have decided to withdraw care on patient.
--- NOTE | 2021-10-08 05:11 | PC.NURSE ---
0435 [employer] turned off in preparation for terminal wean.
[2021-10-08] MEDS: LORazepam INJ (*CRX) 2 MG/ML VIAL IV PUSH (06:08)
[2021-10-08] MEDS: MORPHINE SULFATE INJ (*CRX) 10 MG/ML AMP 5 MG IV PUSH (06:08)
--- NOTE | 2021-10-08 07:16 | PC.NURSE ---
Pt terminally weaned at 0639 and pt passed at 0641; verified by Rosamaria Gregory RN and Chente Alvarez RN. Tawana Meyer, daughter, notified at 0705. Family declines autopsy and requests to use [facility]. Family requests go with pt to home.
--- NOTE | 2021-11-14 14:34 | PM.DS ---
DS: Admitting Diagnosis Discharge Date 10/08/21 Admitting Diagnosis Acute respiratory COVID-19 pneumonia, unvaccinated, SVT DS: Discharge Diagnosis Discharge Diagnosis (1) Sepsis: Code(s): A41.9 - Sepsis, unspecified organism Status: Acute Assessment and Plan: Patient growing staph aureus bacteremia on blood cultures from 09/29. Chest pansensitive -urine cultures growing Enterococcus species on 09/29 -continue vancomycin and imipenem(09/29) and -continue levofloxacin, micafungin (10/04) will continue antibiotics for at least 2 weeks and then repeat another CT scan of the chest 10/06/2021: WBC count is 53.3, check stool for C diff, fever curve 10/07/2021: WBC count trending down, fever curve has improved, patient had hypothermic requiring Irma Hugger intermittently. Discussed with Dr Childers, Pulmonologiist, given patient's CT findings, - Also stop his baricitinib (he has received 12 doses) 10/04/2021 CT scan of the chest abdomen and pelvis: Worsened diffuse lung disease including areas of new cavitation in the lower lobes and right upper lobe, likely a combination of necrotizing bacterial pneumonia and COVID-19 pneumonia. 10/03/2021: Echocardiogram LVEF 60-65%, no evidence of endocarditis 10/03: blood cultures negative x2, preliminary report, 09/16: urine cultures negative 10/04 sputum culture, pending (2) Acute respiratory failure: Code(s): J96.00 - Acute respiratory failure, unspecified whether with hypoxia or hypercapnia Status: Acute Assessment and Plan: Acute hypoxic respiratory failure likely related to COVID pneumonia -patient intubated on 09/25/2021 after of failing BiPAP in being on 100% FiO2, he was also pulling at his BiPAP mask and not keeping it on there by desaturating Chest x-ray this morning stabe COVID-19 pneumonia. -currently on peep of 12 and 80% FiO2. ABGs noted, continue to wean FiO2 to maintain O2 sats greater than 92% - will prone patient for 16-18 hours -continue low tidal volume strategy to avoid volume trauma -continue bronchodilators and Pulmicort -sedated with fentanyl, Versed infusion, patient also on Nimbex for neuromuscular blockade (3) Pneumonia due to 2019-nCoV: Code(s): U07.1 - COVID-19; J12.82 - Pneumonia due to coronavirus disease 2019 Status: Acute Assessment and Plan: Positive COVID pneumonia, under vaccinated -patient has completed course of dexamethasone -also completed 10 days of remdesivir -continue droplet, airborne and contact isolation/precautions Patient received 12 days of baricitinib, had to discontinue given new CT chest findings, discussed with student life coordinator who recommended stopping baricitinib. (4) Supraventricular tachycardia: Code(s): I47.1 - Supraventricular tachycardia Status: Acute Assessment and Plan: Patient had an episode of supraventricular tachycardia with heart rates in the 140s in the ER -currently on amiodarone infusion, currently in sinus rhythm, rate controlled. -patient had some low blood pressures overnight with metoprolol, will currently hold (5) GERD (gastroesophageal reflux disease): Code(s): K21.9 - Gastro-esophageal reflux disease without esophagitis Status: Acute Assessment and Plan: Continue Protonix (6) DVT prophylaxis: Code(s): Z29.9 - Encounter for prophylactic measures, unspecified Status: Acute Assessment and Plan: Continue Lovenox DS: Summary Hospital Course Reason for hospitalization: Acute respiratory failure due to COVID pneumonia, SVT Hospital Course: 58-year-old male with history of anxiety, BPH, GERD, essential hypertension, supraventricular tachycardia presented the ED on 09/22/2021 with complains of shortness of breath. He has been feeling unwell for almost 2 weeks prior to admission. He tested positive for COVID-19 on 09/21/2021. In the ER saturations were in the 80s, patient was placed on high-flow therapy. P
--- NOTE | 2021-11-14 15:09 | PM.DS ---
DS: Admitting Diagnosis Discharge Date 10/08/21 Admitting Diagnosis Acute respiratory failure, COVID pneumonia, unvaccinated, SVT DS: Discharge Diagnosis Discharge Diagnosis (1) Sepsis: Code(s): A41.9 - Sepsis, unspecified organism Status: Acute Assessment and Plan: Patient growing staph aureus bacteremia on blood cultures from 09/29. Chest pansensitive -urine cultures growing Enterococcus species on 09/29 -continue vancomycin and imipenem(09/29) and -continue levofloxacin, micafungin (10/04) will continue antibiotics for at least 2 weeks and then repeat another CT scan of the chest 10/06/2021: WBC count is 53.3, check stool for C diff, fever curve 10/07/2021: WBC count trending down, fever curve has improved, patient had hypothermic requiring Irma Hugger intermittently. Discussed with Dr Childers, Pulmonologiist, given patient's CT findings, - Also stop his baricitinib (he has received 12 doses) 10/04/2021 CT scan of the chest abdomen and pelvis: Worsened diffuse lung disease including areas of new cavitation in the lower lobes and right upper lobe, likely a combination of necrotizing bacterial pneumonia and COVID-19 pneumonia. 10/03/2021: Echocardiogram LVEF 60-65%, no evidence of endocarditis 10/03: blood cultures negative x2, preliminary report, 09/16: urine cultures negative 10/04 sputum culture, pending (2) Acute respiratory failure: Code(s): J96.00 - Acute respiratory failure, unspecified whether with hypoxia or hypercapnia Status: Acute Assessment and Plan: Acute hypoxic respiratory failure likely related to COVID pneumonia -patient intubated on 09/25/2021 after of failing BiPAP in being on 100% FiO2, he was also pulling at his BiPAP mask and not keeping it on there by desaturating Chest x-ray this morning stabe COVID-19 pneumonia. -currently on peep of 12 and 80% FiO2. ABGs noted, continue to wean FiO2 to maintain O2 sats greater than 92% - will prone patient for 16-18 hours -continue low tidal volume strategy to avoid volume trauma -continue bronchodilators and Pulmicort -sedated with fentanyl, Versed infusion, patient also on Nimbex for neuromuscular blockade (3) Pneumonia due to 2019-nCoV: Code(s): U07.1 - COVID-19; J12.82 - Pneumonia due to coronavirus disease 2019 Status: Acute Assessment and Plan: Positive COVID pneumonia, under vaccinated -patient has completed course of dexamethasone -also completed 10 days of remdesivir -continue droplet, airborne and contact isolation/precautions Patient received 12 days of baricitinib, had to discontinue given new CT chest findings, discussed with garment alteration examiner who recommended stopping baricitinib. (4) Supraventricular tachycardia: Code(s): I47.1 - Supraventricular tachycardia Status: Acute Assessment and Plan: Patient had an episode of supraventricular tachycardia with heart rates in the 140s in the ER -currently on amiodarone infusion, currently in sinus rhythm, rate controlled. -patient had some low blood pressures overnight with metoprolol, will currently hold (5) GERD (gastroesophageal reflux disease): Code(s): K21.9 - Gastro-esophageal reflux disease without esophagitis Status: Acute Assessment and Plan: Continue Protonix (6) DVT prophylaxis: Code(s): Z29.9 - Encounter for prophylactic measures, unspecified Status: Acute Assessment and Plan: Continue Lovenox DS: Summary Hospital Course Reason for hospitalization: Acute respiratory failure, COVID pneumonia, unaccinated, SVT Time Spent with Patient Time attestation: Total time spent providing and/or coordinating discharge services: Discharge Plan Discharge Consulting providers: Nancy Ozuna ; Kendall Childers ; Duane Chao ; Wesley Orantes ; Wilfrido Tatum ; Lalo Reynolds ; Tyler Tyler ; Woody Villatoro ; Kosta Schulz V. Discharging Clinician: Nancy Ozuna Patient D
--- NOTE | 2021-11-14 15:21 | P.DN_ITS ---
Discharge Summary Date and Time Date of : 10/08/21 Time of : 06:41 Probable Cause of Probable Cause of : Family withdrew support, Septic shock, acute respiratory failure likely related to COVID pneumonia acute kidney injury Summary Hospital Course: Tho Moreno is a 66 year old male with past medical history of anxiety, BPH, GERD, hypertension, supraventricular tachycardia presented the ED on 09/22/2021 with complains of shortness of breath. In the ER patient stated that he has been feeling unwell for almost a week prior to admission with cough, nausea and body aches. He was tested positive for COVID- 19 on 09/21. He was saturating in the 80s on room and the ER and was placed high-flow therapy in the ER with improvement in his O2 sats. Patient had is not vaccinated. He was also found to be in SVT with heart rate in the 140s and was started on metoprolol in the intermediate Unit. On the morning of 09/25/2021 patient was desaturating despite being on BiPAP, 100% FiO2, decision was made to intubate the patient. -course of hospital stay patient was requiring increasing FiO2 on the ventilator. Blood culture positive Staph aureus, pansensitive. Urine was positive for Enterococcus. Patient was on vancomycin, imipenem, levofloxacin micafungin, due to worsen diffuse lung disease including new areas of cavitation in the lower lobes and right upper lobe. Likely a combination of necrotizing bacterial pneumonia and COVID-19 pneumonia. -10/17/2021, patient was hypotensive, in septic shock on multiple vasopressors, family was notified and withdrew support. Additional Data Confirmation of as documented by pronouncing clinician: Pupillary Reflex, Palpable Pulses, Response to Stimuli, Heart Tones and Breath Sounds Name of Provider Notified: dr rodriguez Time Provider Notified: 06:45 Provider Requests Autopsy: No Family Requests Autopsy: No Plastic Sheets Finishing Supervisor Notified: Yes Date [facility] Notified of : 10/08/21 Time [facility] Notified of : 06:53
== END 2021-10-08 06:41 | disposition expired | DRG 207 ==
LOC: ANHED 09-23 02:02 → ANHIMU 09-23 04:04 → ANHICU 10-08 07:27 → ANHIMU 10-10 16:35 → ANHICU 10-10 16:35
PROVIDERS: Internal Medicine; Admitting Provider Internal Medicine; Emergency Provider Emergency Medicine; PCP Family Medicine; Visit Provider Internal Medicine
DX: U07.1 COVID-19 (principal); J12.82 Pneumonia due to coronavirus disease 2019; J15.9 Unspecified bacterial pneumonia; A41.9 Sepsis, unspecified organism; J96.01 Acute respiratory failure with hypoxia; I47.1 Supraventricular tachycardia; N39.0 Urinary tract infection, site not specified; B95.2 Enterococcus as the cause of diseases classified elsewhere; B95.61 Methicillin susceptible Staphylococcus aureus infection as the cause of diseases classified elsewhere; N40.0 Benign prostatic hyperplasia without lower urinary tract symptoms; K21.9 Gastro-esophageal reflux disease without esophagitis; I10 Essential (primary) hypertension; F41.9 Anxiety disorder, unspecified
CPT/HCPCS: 31500; 36415; 36600; 71045; 71250; 71275; 74019; 74176; 80048; 80053; 80202; 81001; 82375; 82565; 82805; 82948; 83050; 83605; 83615; 83735; 84100; 84450; 84460; 85025; 85027; 85380; 85610; 86140; 87040; 87070; 87077; 87086; 87088; 87186; 87205; 93005; 93306; 93308; 94002; 94003; 94640; 96361; 96365; 96366; 96375; 99285; A9270; C1751; C9113; C9803; G0378; J0282; J0743; J1100; J1200; J1630; J1650; J1815; J1940; J1956; J2060; J2248; J2250; J2270; J2765; J3010; J3370; J7030; J7040; Q9967; U0003; U0005